=== PATIENT | female | born 1955 | race Caucasian/White ===

== ENCOUNTER → 2017-01-09 | Outpatient (CLI) | payer OTHER ==
--- NOTE | 2017-01-11 10:07 | MM ---
Reason for exam: history of breast cancer, mastectomy. Last mammogram was performed 1 year and 4 months ago. History: Patient is postmenopausal and has history of breast cancer at age 60. Malignant US biopsy breast VAD LT of the left breast, September 01, 2015. Mastectomy of the left breast, 2016. Took hormonal contraceptives for 10 years. Physical Findings: Nurse did not find any significant physical abnormalities on exam. MG Diagnostic Mammo RT w CAD CC and MLO view(s) were taken of the right breast. Prior study comparison: August 18, 2015, bilateral MG 3d diag mammo w/cad AVINASH. There are scattered fibroglandular densities. No significant new findings when compared with previous films. These results were verbally communicated with the patient and result sheet given to the patient on 01/09/17. ASSESSMENT: Benign, BI-RAD 2 RECOMMENDATION: Follow-up diagnostic mammogram of the right breast in 1 year.
== END ==
LOC: RADMAMWWP 08:28
PROVIDERS: ATTEND Family Medicine
DX: R92.8 Other abnormal and inconclusive findings on diagnostic imaging of breast (principal)

== ENCOUNTER → 2018-01-10 | Outpatient (CLI) | payer BC ==
--- NOTE | 2018-01-10 13:52 | MR ---
EXAMINATION TYPE: MR cervical spine wo/w con DATE OF EXAM: 01/10/2018 COMPARISON: NONE HISTORY: Neck pain, DDD TECHNIQUE: Multiplanar, multisequence images of the cervical spine were acquired utilizing 13.5 mL intravenous G adavist gadolinium contrast. Diffusion weighted imaging was performed. FINDINGS: There is straightening of usual cervical lordosis and very slight retrolisthesis of C6 with respect to C7. Multilevel moderate degenerative changes are seen with multilevel disc desiccation, a nterior osteophytes, uncovertebral hypertrophy and facet arthropathy. Posterior disc ossify complexes are seen at C3-C4, C4-C5, C5-C6 and C6-C7. Spinal cord signal is within normal limits as visualized. Posterior fossa is also within normal limits as visualized. Paravertebral musculature is unremarkabl e. C2-C3: There is a central disc herniation creating narrowing of the ventral subarachnoid space withou t impression upon the ventral spinal cord. Uncovertebral hypertrophy and facet arthropathy creates mo derate bilateral neural foraminal narrowing, left slightly greater than right. There is resultant min imal spinal canal stenosis. C3-C4: Small central disc osteophyte complex is identified creating mild spinal canal stenosis and na rrowing the ventral subarachnoid space. Uncovertebral hypertrophy and facet arthropathy creates mild bilateral neural foraminal narrowing. C4-C5: There is a left paracentral disc herniation, facet arthropathy and uncovertebral hypertrophy c reating mild spinal canal stenosis, moderate left neural foraminal narrowing and mild right neural fo raminal narrowing. C5-C6: There is a central disc herniation superimposed upon a bilobed broad-based disc bulge that in combination with facet arthropathy and uncovertebral hypertrophy severely narrow the left neural fora men and moderately narrow the right neural foramen. Mild spinal canal stenosis is also seen at this l evel. C6-C7: There is a right paracentral disc herniation and broad-based disc bulge in combination with un covertebral hypertrophy and facet arthropathy creating mild spinal canal stenosis and mild left neura l foraminal narrowing. Right neuroforamen is patent. C7-T1: No evidence for degenerative disc disease. No disc bulge/herniation or protrusion. No Canal stenosis. Foramina are patent bilaterally. No abnormal postcontrast enhancement. IMPRESSION: 1. Central disc herniation at C2-C3 creating minimal spinal canal stenosis. Bilateral moderate neural foraminal narrowing as result of degenerative change. 2. Small central disc osteophyte complex at C3-C4 creating mild spinal canal stenosis. 3. Left paracentral disc herniation at C4-C5 creating mild spinal canal stenosis, moderate left neura l foraminal narrowing and mild right neural foraminal narrowing in combination with degenerative chau ge. 4. Small central disc herniation at C5-C6 creating mild spinal canal stenosis, severe left neural for aminal narrowing and moderate right neuroforaminal narrowing examination with degenerative change. 5. Right paracentral disc herniation at C6-C7 creating mild spinal canal stenosis and mild left neura l foraminal narrowing. 6. Very mild retrolisthesis of C6 on C7, likely degenerative in nature.
== END ==
LOC: RADMRIMAIN 12:44
PROVIDERS: ATTEND Internal Medicine Rheumatology
DX: M48.02 Spinal stenosis, cervical region (principal); M99.71 Connective tissue and disc stenosis of intervertebral foramina of cervical region; M50.21 Other cervical disc displacement, high cervical region; M43.12 Spondylolisthesis, cervical region; M47.812 Spondylosis without myelopathy or radiculopathy, cervical region
CPT/HCPCS: 72156; A9581

== ENCOUNTER → 2018-01-28 | Outpatient (CLI) | payer BC ==
--- NOTE | 2018-01-28 10:52 | MM ---
Reason for exam: additional evaluation requested from prior study. Last mammogram was performed 1 year and 1 month ago. History: Patient is postmenopausal, has history of other cancer at age 63, and has history of breast cancer at age 60. Implant in the left breast, October 2015. Implant Removal of the left breast, October 2015. Malignant US biopsy breast VAD LT of the left breast, September 01, 2015. Mastectomy of the left breast, 2015. Took hormonal contraceptives for 10 years. Physical Findings: Nurse did not find any significant physical abnormalities on exam. MG 3D Diag Mammo W/Cad RT CC and MLO view(s) were taken of the right breast. Prior study comparison: January 09, 2017, right breast MG diagnostic mammo RT w CAD. September 01, 2015, left breast MG diagnostic mammo LT wo CAD. There are scattered fibroglandular densities. No suspicious abnormality. No significant new findings when compared with previous films. These results were verbally communicated with the patient and result sheet given to the patient on 01/28/18. ASSESSMENT: Negative, BI-RAD 1 RECOMMENDATION: Routine screening mammogram of the right breast in 1 year.
== END | disposition home or self-care (01) ==
LOC: RADMAMWWP 09:08
PROVIDERS: ATTEND Family Medicine
DX: Z08 Encounter for follow-up examination after completed treatment for malignant neoplasm (principal); Z85.3 Personal history of malignant neoplasm of breast
CPT/HCPCS: 77061; 77065

== ENCOUNTER → 2018-02-20 | Outpatient (CLI) | payer BC ==
--- NOTE | 2018-02-20 12:13 | MR ---
[facility] EXAMINATION TYPE: MRI left wrist without contrast DATE OF EXAM: 02/20/2018 COMPARISON: NONE HISTORY: 63-year-old female with left wrist pain TECHNIQUE: Multiplanar, multisequence images of the left wrist were obtained without IV contrast. FINDINGS: There is a moderate wrist joint effusion also extending throughout the mid carpal compartment. There is a ganglion cyst along the inferior aspect of the pisotriquetral joint measuring 1.5 x 1.0 cm. Subhash tional ganglion cyst extends into the subcutaneous adipose tissues ulnar aspect of the carpus measuri ng 7 mm. Scapholunate ligament shows an intact dorsal band but there is heterogeneous signal along the region of the volar band which is suspected to be torn. Mild widening of the scapholunate interval at 2.5 mm . The lunotriquetral ligament is intact. There is degenerative change mild at the first CMC joint with marginal spurring and some chondral cys tic change. More moderate at the triscaphe joint with articular cartilage thinning and marginal spurr ing. Degenerative change is relatively severe at the radiolunate joint with [id number] abutment, subchon dral sclerosis, cystic change, and reactive marrow edema. There also appears to be significant cartil age loss along the radioscaphoid joint with mild reactive marrow edema. In addition, there is mild patchy edema and some cystic change along the ulnar aspect of the proximal lunate which can be seen in the setting of ulnar impaction syndrome. There is extensive soft tissue heterogeneity, capsular thickening, inflammation along the volar aspec t of the wrist joint capsule with dorsal subluxation at the level of the distal radial ulnar joint. T he volar radial ulnar ligament appears torn and there is a large tear of the articular disc of the TF C. Mild effusion extends into the distal radioulnar joint. Scattered mild tenosynovial fluid is present along the dorsal extensor tendons. The flexor tendons ap pear within normal limits. Median nerve is normal caliber. The visualized musculature appears within normal limits. IMPRESSION: 1. Bony changes at the ulnar proximal lunate with a large central tear of the articular disc of the T FC which can be seen in the setting of ulnar impaction syndrome. 2. However, there is also a tear of the volar radioulnar ligament and secondary instability with dors al subluxation at the DRUJ. 3. Extensive swelling and inflammation along the volar aspect of the wrist joint suggests capsular sp rain. 4. The volar band of the scapholunate ligament appears at least partially torn and there is severe de generative change at the radiocarpal joint with [id number] abutment between the distal radius and l unate and significant articular cartilage loss between the distal radius and scaphoid as well. 5. A 1.5 cm ganglion cyst extending inferior to the pisotriquetral joint and the second 7 mm ganglion cyst projecting along the ulnar aspect of the carpus into the subcutaneous adipose tissues.
== END | disposition home or self-care (01) ==
LOC: RADMRIMAIN 11:01
PROVIDERS: ATTEND Internal Medicine Rheumatology
DX: S61.512A Laceration without foreign body of left wrist, initial encounter (principal); S63.592A Other specified sprain of left wrist, initial encounter; M67.432 Ganglion, left wrist

== ENCOUNTER → 2019-02-10 | Outpatient (CLI) | payer OTHER ==
--- NOTE | 2019-02-10 22:46 | MR ---
EXAMINATION TYPE: MR brain wo/w con DATE OF EXAM: 02/10/2019 COMPARISON: NONE HISTORY: Headaches, pressure, focal seizure TECHNIQUE: Multiplanar, multisequence images of the brain and brainstem is performed without and with IV contras t, utilizing 14.5 mL intravenous Gadavist . FINDINGS: Diffusion weighted images demonstrate no evidence of a recent infarct or other diffusion ab normality. There is no worrisome extra-axial fluid collection. Mild ventricular and sulcal prominenc e is present. There is occasional small focus of T2 hyperintensity seen throughout the white matter b ilaterally. Approximately 15 scattered lesions are seen. Lesions are nonspecific in appearance and di stribution. T2 coronal weighted images show hippocampal gyri are symmetric and felt within normal jacob its. Midline structures demonstrate normal morphology. The craniocervical junction appears within normal limits. Post contrast images demonstrate no abnormal enhancement. The dural venous sinuses appear pa tent. The visualized sinuses are clear and the globes are intact. IMPRESSION: Mild diffuse age-related cerebral atrophy and chronic small vessel ischemic change. No fong spicious enhancement noted.
== END | disposition home or self-care (01) ==
LOC: RADMRIMAIN 18:04
PROVIDERS: ATTEND Internal Medicine
DX: G31.1 Senile degeneration of brain, not elsewhere classified (principal); I67.82 Cerebral ischemia
CPT/HCPCS: 70553; A9585

== ENCOUNTER → 2019-02-11 | Outpatient (CLI) | payer OTHER ==
--- NOTE | 2019-02-11 14:35 | NM ---
EXAMINATION TYPE: NM bone scan whole body DATE OF EXAM: 02/11/2019 COMPARISON: NONE HISTORY: Pain Delayed whole-body scanning was performed following the injection of 24.3 mCi Tc 99m MDP. Images acq uired 3 hours post injection. FINDINGS: Abnormal uptake involving the shoulders suggest arthropathy. Abnormal uptake involving the thoracic and lumbar spine likely degenerative. Photopenic defects involving the knees likely postsurgical. There is increased uptake surrounding the prostheses bilaterally which could be postsurgical or loosening not excluded. There is nonvisualizat ion of the distal margin of the tibia fibula bilaterally. Abnormal uptake involving the wrists bilaterally likely post arthritic. IMPRESSION: 1. Nonspecific uptake involving the thoracic and lumbar spine may be degenerative correlate with x-ra y given the patient's history of breast cancer exclude other etiologies. 2. Photopenic defects involving the knees suggestive previous surgery. Increased uptake surrounding b oth knee arthroplasties may be postsurgical recommend x-ray correlation. 3. There is nonvisualization of the distal tibia and fibula bilaterally greater on the left recommend bilateral tibia fibula series.
== END | disposition home or self-care (01) ==
LOC: RADNMMAIN 10:11
PROVIDERS: ATTEND Internal Medicine
DX: M85.80 Other specified disorders of bone density and structure, unspecified site (principal); D05.12 Intraductal carcinoma in situ of left breast; D09.0 Carcinoma in situ of bladder; R93.7 Abnormal findings on diagnostic imaging of other parts of musculoskeletal system; Z85.3 Personal history of malignant neoplasm of breast; Z98.890 Other specified postprocedural states
CPT/HCPCS: 78306; A9503

== ENCOUNTER → 2019-03-05 | Outpatient (CLI) | payer OTHER ==
--- NOTE | 2019-03-07 13:33 | MM ---
Reason for exam: screening (asymptomatic). Last mammogram was performed 1 year and 1 month ago. History: Patient is postmenopausal, has history of other cancer at age 63, and has history of breast cancer at age 60. Implant in the left breast, October 2015. Implant Removal of the left breast, October 2015. Malignant US biopsy breast VAD LT of the left breast, September 01, 2015. Mastectomy of the left breast, 2016. Took hormonal contraceptives for 10 years. Physical Findings: A clinical breast exam by your physician is recommended on an annual basis and results should be correlated with mammographic findings. MG Screen Daljit Unilateral W/Cad CC and MLO view(s) were taken of the right breast. Prior study comparison: January 28, 2018, right breast MG 3d diag mammo w/cad RT. January 09, 2017, right breast MG diagnostic mammo RT w CAD. There are scattered fibroglandular densities. No significant changes when compared with prior studies. ASSESSMENT: Benign, BI-RAD 2 RECOMMENDATION: Routine screening mammogram of the right breast in 1 year.
== END | disposition home or self-care (01) ==
LOC: RADMAMWWP 13:12
PROVIDERS: ATTEND Internal Medicine
DX: Z12.31 Encounter for screening mammogram for malignant neoplasm of breast (principal); Z85.3 Personal history of malignant neoplasm of breast
CPT/HCPCS: 77067

== ENCOUNTER → 2019-04-24 | Outpatient (CLI) | payer OTHER ==
--- NOTE | 2019-04-24 21:05 | CONS ---
CONSULTATION DATE OF SERVICE: 04/24/2019 This patient is a 64-year-old lady who has been evaluated in the sleep center for possible obstructive sleep apnea-hypopnea syndrome. HISTORY OF PRESENT ILLNESS/SLEEP-WAKE EVALUATION: Patient's usual sleep schedule is from 10 or 11 p.m. until 8 or 9 a.m. Usually no problems with falling asleep, although she has a TV set in the bedroom. She sleeps on the back position with loud snoring and awakenings from sleep 2 times with nocturia and dry mouth. In the morning, the patient wakes up tired and sleepy during the day. [place] Sleepiness Scale is significantly increased at 12. Sometimes she takes naps in the afternoon. She has episodes of difficulties concentrating, irritability, anxiety and sexual dysfunction. She has a history of sleepwalking in childhood. PAST MEDICAL HISTORY: Past medical history is positive for: 1. Hypertension. 2. Swelling of the legs. 3. Rheumatoid arthritis. 4. Pain in the back, hands. PAST SURGICAL HISTORY: 1. Tonsillectomy. 2. Cholecystectomy. 3. Bilateral knee replacement. 4. Left mastectomy for carcinoma. 5. Laser treatment for bladder carcinoma. SOCIAL HISTORY: Positive for smoking for about 20 pack/years; quit 12 years ago. Alcohol consumption rarely. FAMILY HISTORY: Hypertension, heart problems, stroke, arthritis, sinus problems, snoring, pneumonia, cancer, bronchitis, diabetes, thyroid problems, during sleep, mental illness. REVIEW OF SYSTEMS: Awakenings from sleep, tiredness and sleepiness during the day, loud snoring, swelling of the legs. PHYSICAL EXAMINATION: GENERAL: A pleasant lady without distress. VITAL SIGNS: BP 132/70, HR 78, RR 16, height 5 feet 6 inches, weight 316, body mass index 50.8, temperature 98.1, oxygen saturation at room air 89%. HEENT: PERRLA, EOMI. Evaluation of oropharynx showed tongue protrudes midline. Extremely low position of soft palate. Mallampati IV. Slight restriction of nasal breathing. NECK: Supple. No JVD. Thyroid is not palpable. Wide neck; 17 inches in circumference. LUNGS: Clear to percussion and to auscultation. Good air exchange. No wheezing or rhonchi. HEART: S1, S2 regular. No murmurs, gallops or rubs. ABDOMEN: Obese. EXTREMITIES: One to two plus bilateral ankle edema. RESEARCH PROGRAMMER: Awake, alert, and oriented X3. Cranial nerves 2 to 7 intact. There is no fasciculation or atrophy. noted. No focal deficits observed. IMPRESSION: 1. Loud snoring, awakenings from sleep with nocturia, extremely low soft palate, Mallampati IV, wide neck at 17 inches in circumference, sleepiness, [place] Sleepiness Scale of 12; obstructive sleep apnea-hypopnea syndrome. 2. Obesity with body mass index 50.8. 3. Hypertension. 4. Rheumatoid arthritis. 5. Back pain. 6. Hand pain. 7. Swelling of legs bilaterally at 2+. Possible CHF. 8. Status post left mastectomy for carcinoma. 9. Status post laser treatment for bladder carcinoma. 10.Status post cholecystectomy. 11.Status post bilateral knee replacement. PLAN: 1. Polysomnography for evaluation of patient's breathing during sleep. 2. CPAP/BiPAP titration if sleep study confirms obstructive sleep apnea-hypopnea syndrome. 3. Preferable position during sleep on the side. 4. No driving if patient feels any sleepiness. 5. I will see patient for follow up visit to explain results of testing and following plan. Thank you very much for referring this patient for consultation. Sincerely, Javid Miguel MD, PhD, FAASM Diplomat of [place] [employer] [place] [employer] Inspector [employer] [facility] [place] MMODL / WHIT: [id number] /
== END | disposition home or self-care (01) ==
LOC: SLEEP 13:18
PROVIDERS: ATTEND Internal Medicine
DX: G47.33 Obstructive sleep apnea (adult) (pediatric) (principal); E66.9 Obesity, unspecified; I10 Essential (primary) hypertension; M06.9 Rheumatoid arthritis, unspecified; M54.9 Dorsalgia, unspecified; M79.643 Pain in unspecified hand; M79.89 Other specified soft tissue disorders; Z68.43 Body mass index [BMI] 50.0-59.9, adult; Z87.891 Personal history of nicotine dependence; Z90.12 Acquired absence of left breast and nipple; Z90.49 Acquired absence of other specified parts of digestive tract; Z96.653 Presence of artificial knee joint, bilateral; Z98.890 Other specified postprocedural states
CPT/HCPCS: 99211

== ENCOUNTER → 2019-08-13 | Outpatient (CLI) | payer OTHER ==
--- NOTE | 2019-08-14 00:59 | MR ---
EXAMINATION TYPE: MR wrist RT wo con DATE OF EXAM: 08/13/2019 COMPARISON: None HISTORY: Rheumatoid arthritis There is decreased signal on the T1 images in the lunate bone. I see no fracture line. There is 4 mm focus of increased signal in the distal scaphoid bone. The distal radius and ulna appear intact. Ther e is narrowing of the radiocarpal joint space which is severely narrowed adjacent to the lunate. Ther e is mild narrowing of the first carpometacarpal joint space. There are small degenerative cysts in t he base of the first metacarpal. There is general increased joint fluid of the carpus. There is fluid around the extensor tendons of the wrist. There is subcutaneous edema on the dorsum of the wrist. Th ere is fluid around the flexor pollicis tendon. IMPRESSION: Significant narrowing of the radiocarpal joint space without significant spurring. This could relate to inflammatory arthritis. There is moderate carpal joint effusion that is consistent with nonspecifi c synovitis. Subcutaneous edema around the wrist. Fluid around the tendons anteriorly and posteriorly also consistent with tenosynovitis. Decreased signal in the lunate consistent with chronic avascular necrosis.
== END | disposition home or self-care (01) ==
LOC: RADMRIMAIN 11:57
PROVIDERS: ATTEND Nurse Practitioner Adult Health
DX: M25.431 Effusion, right wrist (principal); M25.831 Other specified joint disorders, right wrist

== ENCOUNTER → 2020-03-16 | Outpatient (CLI) | payer OTHER ==
--- NOTE | 2020-03-17 10:00 | ECHOF ---
Referral Reason:I50.9 CHF MEASUREMENTS -------- HEIGHT: 170.2 cm WEIGHT: 195.0 kg BP: RVIDd: 3.3 cm (< 3.3) IVSd: 1.4 cm (0.6 - 1.1) LVIDd: 5.4 cm (3.9 - 5.3) LVPWd: 1.3 cm (0.6 - 1.1) IVSs: 1.7 cm LVIDs: 5.2 cm LVPWs: 1.6 cm Ao Diam: 3.0 cm (2.0 - 3.7) MV E Markos: 0.53 m/s MV DecT: 109 ms MV A Markos: 0.53 m/s MV E/A Ratio: 0.99 FINDINGS -------- Sinus rhythm. Morbid Obesity This was a techncally difficult study with suboptimal views, , Lumason utilized for enhancement of im ages. The left ventricular size is normal. There is mild concentric left ventricular hypertrophy. Overa ll left ventricular systolic function is low-normal with, an EF between 50 - 55 %. The right ventricle is normal in size. The left atrial size is normal. The right atrial size is normal. The aortic valve was not well visualized. The mitral valve was not well visualized. The tricuspid valve was not well visualized. Unable to estimate RVSP due to inadequate TR jet spect ral doppler profile. The pulmonic valve was not well visualized. The aortic root size is normal. Echo free space represents a pericardial fat pad. There is a trivial pericardial effusion present. CONCLUSIONS -------- 1. Sinus rhythm. 2. Morbid Obesity 3. This was a techncally difficult study with suboptimal views, , Lumason utilized for enhancement of images. 4. The left ventricular size is normal. 5. There is mild concentric left ventricular hypertrophy. 6. Overall left ventricular systolic function is low-normal with, an EF between 50 - 55 %. 7. The right ventricle is normal in size. 8. The left atrial size is normal. 9. The right atrial size is normal. 10. The aortic valve was not well visualized. 11. The mitral valve was not well visualized. 12. The tricuspid valve was not well visualized. 13. Unable to estimate RVSP due to inadequate TR jet spectral doppler profile. 14. The pulmonic valve was not well visualized. 15. Echo free space represents a pericardial fat pad. 16. There is a trivial pericardial effusion present. PROGRAM DIRECTOR CABLE TELEVISION: Rahel Sorensen RDCS
== END | disposition home or self-care (01) ==
LOC: RADECHMAIN 12:10
PROVIDERS: ATTEND Internal Medicine
DX: I31.3 Pericardial effusion (noninflammatory) (principal); E66.01 Morbid (severe) obesity due to excess calories; Z88.1 Allergy status to other antibiotic agents; Z88.6 Allergy status to analgesic agent
CPT/HCPCS: C8929; Q9950; 93306

== ENCOUNTER → 2020-08-25 | Outpatient (CLI) | payer OTHER ==
--- NOTE | 2020-08-26 01:05 | SFUN ---
SLEEP CENTER FOLLOW UP NOTE DATE OF SERVICE: 08/25/2020 65-year-old lady who has been followed in Sleep Center for treatment of obstructive sleep apnea hypopnea syndrome. About one year ago, patient had a polysomnogram and CPAP titration. After that, she was started on treatment with CPAP and continued to use CPAP equipment until present time. The patient was not able to come for follow-up visit because of the situation because sleep center was closed for some period of time. The patient is using equipment every night, sleeps better with the machine. She feels better during the day. Today [place] sleepiness Scale is 11. I discussed with the patient in detail, results of her diagnostic sleep study and titration study. She has severe sleep apnea with this apnea-hypopnea index 51.8 and in REM sleep 66.7. With CPAP, respiration was fully normalized. I checked her CPAP machine today. Pressure is 10 cm of water. Usage is 30/30 nights for more than 4 hours with average usage of 8.4 hours at night. Leak is 17 L/minute which is acceptable. Apnea-hypopnea index only 0.5, which is perfect. Sometimes patient opens her mouth during the sleep. MEDICATIONS: Losartan, meloxicam, Methotrexate, propranolol, furosemide, hydrocodone, Mobic, folic acid. PHYSICAL EXAM: Patient in no distress, BP 181/67, HR 68/16, weight 343 pounds, temperature 98.2, oxygen saturation at room air 96%. HEENT: PERRLA, EOMI, evaluation of oropharynx showed tongue protrudes midline. Low position of soft palate and then for my template. NECK: Supple, no JVD. Thyroid is not palpable. LUNGS: Clear to percussion and to auscultation. Good air exchange. No wheezing or rhonchi. HEART: S1, S2 regular. No murmurs, gallops, or rubs. ABDOMEN: Obese. Soft and nontender. Bowel sounds are present. No organomegaly appreciated. EXTREMITIES: No clubbing or cyanosis. INTEGRATION SOLUTION ARCHITECT: Awake, alert, and oriented X3. Cranial nerves 2 to 7 intact. There is no fasciculation or atrophy. noted. No focal deficits observed. IMPRESSION: 1. Severe obstructive sleep apnea-hypopnea syndrome. Patient demonstrated 100% compliance with treatment benefitting from treatment. 2. Obesity. 3. Hypertension. 4. Rheumatoid arthritis. 5. Back problems. 6. pain. 7. Status post bilateral mastectomy for CA. 8. Status post laser treatment for bladder CA. 9. Status post cholecystectomy. 10.Status post bilateral knee replacement. PLAN: 1. I increased CPAP pressure to 11 cm of water. The patient indicated that her leased equipment showed episodes of dropping oxygen during sleep. 1. Patient will continue to use PAP equipment every night for the whole night. 2. Sleep hygiene with regular time in bed for at least 7-1/2 to 8 hours. 3. Precautions related to driving. No driving if feeling sleepiness. 4. I will maintain all necessary prescription for PAP supplies including mask, tube, filters. 5. Watching weight. 6. No driving if feeling sleepiness. 7. Follow-up visit in 6 months or earlier if patient has any problems. 8. Prescription for chin strap. Thank you very much for allowing me to participate in management of your patient. Sincerely, Javid Miguel MD, PhD, FAASM Diplomat of [place] [employer] [place] [employer] Business Relationship Manager of [facility] [place] MMODL / IJN: [id number] /
== END | disposition home or self-care (01) ==
LOC: SLEEP 15:03
PROVIDERS: ATTEND Internal Medicine
DX: G47.33 Obstructive sleep apnea (adult) (pediatric) (principal); E66.9 Obesity, unspecified; I10 Essential (primary) hypertension; M06.9 Rheumatoid arthritis, unspecified; R93.89 Abnormal findings on diagnostic imaging of other specified body structures; Z90.13 Acquired absence of bilateral breasts and nipples; Z98.890 Other specified postprocedural states; Z90.49 Acquired absence of other specified parts of digestive tract; Z96.653 Presence of artificial knee joint, bilateral; Z99.89 Dependence on other enabling machines and devices; Z79.1 Long term (current) use of non-steroidal anti-inflammatories (NSAID); Z79.891 Long term (current) use of opiate analgesic; Z79.899 Other long term (current) drug therapy

== ENCOUNTER 2021-02-16 16:27 | Observation (INO) | payer OTHER ==
[2021-02-16] MEDS ORDERED: IBUPROFEN 600 MG TAB PO STA (18:19)
[2021-02-16] MEDS ORDERED: ACETAMINOPHEN TAB 500 MG TAB PO STA (18:19)
--- NOTE | 2021-02-16 18:23 | ED ---
General Adult HPI - General Chief complaint: Fever Stated complaint: fever Time Seen by Provider: 02/16/21 18:00 Source: patient, RN notes reviewed, old records reviewed Mode of arrival: wheelchair Limitations: no limitations - History of Present Illness Initial comments: This is a 66-year-old female with a past medical history significant for hypertension. Patient comes in today stating she started feeling terrible yesterday she has body aches particularly neck region. Patient has a mild headache. Patient states last night she had 102 fever. Patient denies any cough patient denies shortness of breath or difficulty breathing. Patient states she has some dysuria. Patient denies lower abdominal discomfort. Patient denies any back pain. Patient denies any nausea vomiting or diarrhea. Patient states the right lower leg is erythematous and warm and it is started over the last couple of days. Patient states she's had her COVID vaccine 2 and the last dose was in November. Patient states she did have some chest pressure earlier today. - Related Data Home Medications Medication Instructions Recorded Confirmed Hydrocodone/Acetaminophen [[place] 1 tab PO Q8H PRN 06/23/14 02/16/21 5-325] ALPRAZolam [Xanax] 0.25 mg PO Q8H PRN 02/16/21 02/16/21 Ascorbic Acid [Vitamin C] 250 mg PO DAILY 02/16/21 02/16/21 Aspirin EC [Ecotrin Low Dose] 81 mg PO DAILY 02/16/21 02/16/21 Baricitinib [Olumiant] 2 mg PO HS 02/16/21 02/16/21 Biotin 2,500 mcg PO DAILY 02/16/21 02/16/21 Calcium Citrate 630mg 630 mg PO DAILY 02/16/21 02/16/21 Ergocalciferol [Vitamin D2 (1250 1,250 mcg PO JOHANSEN 02/16/21 02/16/21 Mcg = 72309 Iu)] Folic Acid 1 mg PO DAILY 02/16/21 02/16/21 Furosemide [Lasix] 40 mg PO DAILY 02/16/21 02/16/21 Latanoprost/Pf [Latanoprost 0.005% 1 drop BOTH EYES HS 02/16/21 02/16/21 Eye Drop] Loratadine [Claritin] 10 mg PO DAILY 02/16/21 02/16/21 Losartan Potassium 100 mg PO DAILY 02/16/21 02/16/21 Magnesium 143mg 143 mg PO DAILY 02/16/21 02/16/21 Meloxicam [Mobic] 15 mg PO DAILY PRN 02/16/21 02/16/21 Multivit-Min/Iron/Folic/Lutein 1 tab PO DAILY 02/16/21 02/16/21 [Centrum Silver Women Tablet] Pantoprazole Sodium [Protonix] 20 mg PO HS 02/16/21 02/16/21 Propranolol HCl [Propranolol HCl 120 mg PO HS 02/16/21 02/16/21 ER] Vitamin A 2400mg 2,400 mg PO DAILY 02/16/21 02/16/21 Vitamin B Complex 1 cap PO DAILY 02/16/21 02/16/21 hydroCHLOROthiazide [Hydrodiuril] 25 mg PO DAILY 02/16/21 02/16/21 predniSONE 2.5 mg PO DAILY 02/16/21 02/16/21 Allergies Allergy/AdvReac Type Severity Reaction Status Date / Time morphine Allergy Itching/Ezequiel Verified 02/16/21 18:56 lucinations venom-honey bee Allergy Swelling Verified 02/16/21 18:56 [bee venom (honey bee)] Review of Systems ROS Statement: Those systems with pertinent positive or pertinent negative responses have been documented in the HPI. ROS Other: All systems not noted in ROS Statement are negative. Past Medical History Past Medical History: Cancer, Hypertension, Neurologic Disorder, Seizure Disorder Additional Past Medical History / Comment(s): cellulitis, back pain, partial on set seizures. breast cancer History of Any Multi-Drug Resistant Organisms: None Reported Past Surgical History: Cholecystectomy, Orthopedic Surgery, Tonsillectomy Additional Past Surgical History / Comment(s): Herbal tunnel release and cyst removal on the right wrist, open surgery on the left knee many years ago followed by open reconstructive surgery. Patient denies prosthetics. Right knee arthroscopically for medial meniscus tear, epidural steroid injections 2. Past Anesthesia/Blood Transfusion Reactions: Previous Problems w/ Anesthesia Additional Past Anesthesia/Blood Transfusion Reaction / Comment(s): patient states when she had her wrist surgery done she felt beginning of surgery. dur ing dental work the anesthetics given make her "heart go stupid" Past Psychological History: No Psychological Hx Reported Smoking Status: Never smoker Past Alcohol Use History: None Reported Past Drug Use History: None Reported - Past Family History Father Additional Family Medical History / Comment(s): father had heart disease/valves r/t having rheumatic fever as a child. Mother Additional Family Medical History / Comment(s): multiple sclerosis General Exam - General Exam Comments Initial Comments: GENERAL: Patient is well-developed and well-nourished. Patient is nontoxic and well- hydrated and is in mild distress. ENT: Neck is soft and supple. No significant lymphadenopathy is noted. Oropharynx is clear. Moist mucous membranes. Neck has full range of motion without eliciting any pain. EYES: The sclera were anicteric and conjunctiva were pink and moist. Extraocular movements were intact and pupils were equal round and reactive to light. Eyelids were unremarkable. PULMONARY: Unlabored respirations. Good breath sounds bilaterally. No audible rales rhonchi or wheezing was noted. CARDIOVASCULAR: There is a regular rate and rhythm without any murmurs gallops or rubs. ABDOMEN: She has mild left lower quadrant SKIN: Skin is clear with no lesions or rashes and otherwise unremarkable. NEUROLOGIC: Patient is alert and oriented x3. Cranial nerves II through XII are grossly intact. Motor and sensory are also intact. Normal speech, volume and content. Symmetrical smile. MUSCULOSKELETAL: Normal extremities with adequate strength and full range of motion. LYMPHATICS: No significant lymphadenopathy is noted PSYCHIATRIC: Normal psychiatric evaluation. Limitations: no limitations Course Vital Signs 02/16/21 02/16/21 02/16/21 17:58 18:22 19:02 Temperature 100.2 F H 103.1 F H Pulse Rate 86 Respiratory 22 18 Rate Blood Pressure 172/78 O2 Sat by Pulse 93 L Oximetry 02/16/21 19:03 Temperature Pulse Rate Respiratory 18 Rate Blood Pressure O2 Sat by Pulse Oximetry Medical Decision Making - Medical Decision Making EKG shows normal sinus rhythm at 77 bpm GA interval 146 QRS is 100 QT interval 350 QTC is 396. Patient's EKG shows no ST segment elevation or depression however she has T-wave inversions in all precordial leads. Patient was diagnosed with right leg cellulitis at 8:10 PM I spoke with Dr. Morris he agreed to admit the patient admitted the patient wrote admitting orders. Started the patient on Unasyn. - Lab Data Result diagrams: 02/16/21 18:48 02/16/21 19:24 Lab Results 02/16/21 02/16/21 02/16/21 Range/Units 18:48 18:48 18:48 WBC 12.6 H (3.8-10.6) k/uL RBC 4.48 (3.80-5.40) m/uL Hgb 14.6 (11.4-16.0) gm/dL Hct 44.3 (34.0-46.0) % MCV 98.9 (80.0-100.0) fL MCH 32.6 (25.0-35.0) pg MCHC 33.0 (31.0-37.0) g/dL RDW 14.4 (11.5-15.5) % Plt Count 328 (150-450) k/uL MPV 7.6 Neutrophils % 93 % Lymphocytes % 3 % Monocytes % 3 % Eosinophils % 1 % Basophils % 0 % Neutrophils # 11.7 H (1.3-7.7) k/uL Lymphocytes # 0.4 L (1.0-4.8) k/uL Monocytes # 0.3 (0-1.0) k/uL Eosinophils # 0.1 (0-0.7) k/uL Basophils # 0.0 (0-0.2) k/uL PT 13.8 H (9.0-12.0) sec INR 1.4 H (<1.2) APTT 26.0 (22.0-30.0) sec Sodium (137-145) mmol/L Potassium (3.5-5.1) mmol/L Chloride (98-107) mmol/L Carbon Dioxide (22-30) mmol/L Anion Gap mmol/L BUN (7-17) mg/dL Creatinine (0.52-1.04) mg/dL Est GFR (CKD-EPI)AfAm (>60 ml/min/1.73 sqM) Est GFR (CKD-EPI)NonAf (>60 ml/min/1.73 sqM) Glucose (74-99) mg/dL Calcium (8.4-10.2) mg/dL Total Bilirubin (0.2-1.3) mg/dL AST (14-36) U/L ALT (4-34) U/L Alkaline Phosphatase (38-126) U/L Troponin I <0.012 (0.000-0.034) ng/mL Total Protein (6.3-8.2) g/dL Albumin (3.5-5.0) g/dL Urine Color Urine Appearance (Clear) Urine pH (5.0-8.0) Ur Specific [place] (1.001-1.035) Urine Protein (Negative) Urine Glucose (UA) (Negative) Urine Ketones (Negative) Urine Blood (Negative) Urine Nitrite (Negative) Urine Bilirubin (Negative) Urine Urobilinogen (<2.0) mg/dL Ur Leukocyte Esterase (Negative) Urine RBC (0-5) /hpf Urine WBC (0-5) /hpf Ur Squamous Epith Cells (0-4) /hpf Urine Mucus (None) /hpf Coronavirus (PCR) (Not Detectd) 02/16/21 02/16/21 02/16/21 Range/Units 18:56 19:24 20:00 WBC (3.8-10.6) k/uL RBC (3.80-5.40) m/uL Hgb (11.4-16.0) gm/dL Hct (34.0-46.0) % MCV (80.0-100.0) fL MCH (25.0-35.0) pg MCHC (31.0-37.0) g/dL RDW (11.5-15.5) % Plt Count (150-450) k/uL MPV Neutrophils % % Lymphocytes % % Monocytes % % Eosinophils % % Basophils % % Neutrophils # (1.3-7.7) k/uL Lymphocytes # (1.0-4.8) k/uL Monocytes # (0-1.0) k/uL Eosinophils # (0-0.7) k/uL Basophils # (0-0.2) k/uL PT (9.0-12.0) sec INR (<1.2) APTT (22.0-30.0) sec Sodium 134 L (137-145) mmol/L Potassium 3.7 (3.5-5.1) mmol/L Chloride 93 L (98-107) mmol/L Carbon Dioxide 32 H (22-30) mmol/L Anion Gap 9 mmol/L BUN 21 H (7-17) mg/dL Creatinine 0.76 (0.52-1.04) mg/dL Est GFR (CKD-EPI)AfAm >90 (>60 ml/min/1.73 sqM) Est GFR (CKD-EPI)NonAf 83 (>60 ml/min/1.73 sqM) Glucose 145 H (74-99) mg/dL Calcium 9.0 (8.4-10.2) mg/dL Total Bilirubin 0.9 (0.2-1.3) mg/dL AST 31 (14-36) U/L ALT 29 (4-34) U/L Alkaline Phosphatase 85 (38-126) U/L Troponin I (0.000-0.034) ng/mL Total Protein 6.7 (6.3-8.2) g/dL Albumin 4.1 (3.5-5.0) g/dL Urine Color Yellow Urine Appearance Clear (Clear) Urine pH 6.5 (5.0-8.0) Ur Specific [place] 1.025 (1.001-1.035) Urine Protein 2+ H (Negative) Urine Glucose (UA) Negative (Negative) Urine Ketones Trace H (Negative) Urine Blood Small H (Negative) Urine Nitrite Negative (Negative) Urine Bilirubin Negative (Negative) Urine Urobilinogen 2.0 (<2.0) mg/dL Ur Leukocyte Esterase Negative (Negative) Urine RBC 10 H (0-5) /hpf Urine WBC 4 (0-5) /hpf Ur Squamous Epith Cells 3 (0-4) /hpf Urine Mucus Rare H (None) /hpf Coronavirus (PCR) Not Detected (Not Detectd) Disposition Clinical Impression: Cellulitis of right leg, Chest pain Disposition: ADMITTED IP TO THIS [facility] Referrals: Bry Silverio MD [Primary Care Provider] - 1-2 days Time of Disposition: 20:49
[2021-02-16] MEDS: SODIUM CHLORIDE 0.9% 500 ML 500 ML IV SCH ×2 (18:50→19:34)
[2021-02-16 19:09] LABS: Basophils % (A) 0 %; Eosinophils # (A) 0.1 k/uL (0-0.7); Eosinophils % (A) 1 %; HCT 44.3 % (34.0-46.0); HGB 14.6 gm/dL (11.4-16.0); Lymphocytes # (A) 0.4 k/uL (1.0-4.8); Lymphocytes % (A) 3 %; MCH 32.6 pg (25.0-35.0); MCV 98.9 fL (80.0-100.0); Mean Platelet Volume 7.6; Monocytes # (A) 0.3 k/uL (0-1.0); Monocytes % (A) 3 %; Neutrophils # (A) 11.7 k/uL (1.3-7.7); Neutrophils % (A) 93 %; Platelet Count 328 k/uL (150-450); RBC 4.48 m/uL (3.80-5.40); RDW 14.4 % (11.5-15.5); WBC 12.6 k/uL (3.8-10.6)
[2021-02-16 19:24] LABS: INR 1.4 (<1.2); Prothrombin Time 13.8 sec (9.0-12.0)
--- NOTE | 2021-02-16 19:25 | XR ---
EXAMINATION TYPE: XR chest 2V DATE OF EXAM: 02/16/2021 COMPARISON: NONE HISTORY: Fever TECHNIQUE: 2 views FINDINGS: There is no heart failure nor confluent pneumonic infiltrate. Costophrenic angles are clear . There are no hilar masses. There are chest leads. Bony thorax is intact. IMPRESSION: No active cardiopulmonary disease.
[2021-02-16 19:57] LABS: ALT 29 U/L (4-34); AST 31 U/L (14-36); African American GFR (CKD) >90 (>60 ml/min/1.73 sqM); Albumin 4.1 g/dL (3.5-5.0); Alkaline Phosphatase 85 U/L (38-126); Anion Gap 9 mmol/L; Blood Urea Nitrogen 21 mg/dL (7-17); Carbon Dioxide 32 mmol/L (22-30); Chloride 93 mmol/L (98-107); Glucose 145 mg/dL (74-99); Non-African American GFR(CKD) 83 (>60 ml/min/1.73 sqM); Potassium 3.7 mmol/L (3.5-5.1); Sodium 134 mmol/L (137-145); Total Bilirubin 0.9 mg/dL (0.2-1.3); Total Protein 6.7 g/dL (6.3-8.2)
[2021-02-16 20:42] LABS: Appearance,Urine Clear (Clear); Bilirubin,Urine Negative (Negative); Blood,Urine Small (Negative); Color,Urine Yellow; Glucose,Urine (UA) Negative (Negative); Ketones,Urine Trace (Negative); Leukocyte Esterase,Urine Negative (Negative); Mucus,Urine Rare /hpf; Nitrite,Urine Negative (Negative); PH, Urine 6.5 (5.0-8.0); Protein,Urine 2+ (Negative); RBC,Urine 10 /hpf (0-5); Specific Gravity,Urine 1.025 (1.001-1.035); Squamous Epithelial Cell,Urine 3 /hpf (0-4); WBC,Urine 4 /hpf (0-5)
[2021-02-16] MEDS ORDERED: AMPICILLIN-SULBACTAM 3 GM in SODIUM CHLORIDE 0.9% 100 ML IVPB STA (20:50)
[2021-02-16 22:44] VITALS: RESP 16
[2021-02-16] MEDS ORDERED: HYDROcodone/APAP 5-325MG 1 EACH TAB PO PRN (23:16)
[2021-02-16] MEDS ORDERED: ALPRAZolam 0.25 MG TAB PO PRN (23:16)
--- NOTE | 2021-02-17 02:12 | P.HPIM ---
History of Present Illness H&P Date: 02/17/21 The patient is 66-year-old female with a PMH of hypertension and chronic lower extremity edema who presented to the emergency room with multiple complaints. The patient reports that yesterday at around 3 PM, she began feeling ill, subsequently developed a fever and body aches. She reports that she also experienced some substernal chest discomfort with associated shortness of breath, lasting for a few minutes at a time, and then resolving spontaneously. She also reported dysuria along with pain in her right leg. At time of interview, she reports no chest discomfort throughout the day today, though continues to have dysuria and increased urinary frequency. Denied headaches, visual disturbances or nausea, vomiting, diarrhea. Denied weakness, numbness, tingling. In the emergency room, EKG revealed normal sinus rhythm at 77 bpm along with T-wave inversions in precordial leads diffusely along with II and III. Chest x-ray was unremarkable. Laboratory evaluation was remarkable for WBC count 12.6, INR 1.4, sodium 134, CO2 32, BUN 21, glucose 145, and troponin less than 0.012. Review of systems: Pertinent positives and negatives as discussed in HPI, a complete review of systems was performed and all other systems are negative. Physical examination: General: non toxic, no distress, appears at stated age, morbidly obese Derm: Bilateral lower extremity chronic venous stasis changes along with erythema and warmth right greater than left warm, dry Head: atraumatic, normocephalic, symmetric Eyes: EOMI, no lid lag, anicteric sclera, pupils equal round reactive to light ENT: Nose and ears atraumatic, no thrush, no pharyngeal erythema Neck: No thyromegaly, no cervical lymphadenopathy, trachea midline, supple Mouth: no lip lesion, mucus membranes moist Cardiovascular: S1S2 reg, no murmur, positive posterior tibial pulse bilateral, no edema, capillary refill less than 2 seconds Lungs: CTA bilateral, no rhonchi, no rales , no accessory muscle use Abdominal: soft, nontender to palpation, no guarding, no appreciable organomegaly, normal bowel sounds Ext: no gross muscle atrophy, muscle strength 5 out of 5 in all 4 extremities grossly, no contractures, Neuro: CN II-XI grossly intact, light touch intact all 4 extremities, finger to nose within normal limits, Psych: Alert, oriented, appropriate affect Assessment/plan Right lower extremity cellulitis -Continue with Unasyn -Follow up blood cultures Chest pain, rule out ACS -Cardiology consult Hypertension -Continue with home meds DVT prophylaxis -Heparin subq The patient is admitted with an anticipated less than 2 midnight stay for evaluation of cellulitis CODE STATUS: Full Code Discussed with: Patient Anticipated discharge date: in am Anticipated discharge place: Home A total of 35 minutes was spent on the care of this complex patient more than 50% of the time was spent in counseling and care coordination. Past Medical History Past Medical History: Cancer, Hypertension, Neurologic Disorder, Seizure Disorder Additional Past Medical History / Comment(s): cellulitis, back pain, partial on set seizures. breast cancer History of Any Multi-Drug Resistant Organisms: None Reported Past Surgical History: Cholecystectomy, Orthopedic Surgery, Tonsillectomy Additional Past Surgical History / Comment(s): Herbal tunnel release and cyst removal on the right wrist, open surgery on the left knee many years ago followed by open reconstructive surgery. Patient denies prosthetics. Right knee arthroscopically for medial meniscus tear, epidural steroid injections 2. Past Anesthesia/Blood Transfusion Reactions: Previous Problems w/ Anesthesia Additional Past Anesthesia/Blood Transfusion Reaction / Comment(s): patient states when she had her wrist surgery done she felt beginning of surgery. during dental work the anesthetics given make her "heart go stupid" Past Psychological History: No Psychological Hx Reported Smoking Status: Never smoker Past Alcohol Use History: None Reported Past Drug Use History: None Reported - Past Family History Father Additional Family Medical History / Comment(s): father had heart disease/valves r/t having rheumatic fever as a child. Mother Additional Family Medical History / Comment(s): multiple sclerosis Medications and Allergies Home Medications Medication Instructions Recorded Confirmed Type Hydrocodone/Acetaminophen [[place] 1 tab PO Q8H PRN 06/23/14 02/16/21 History 5-325] ALPRAZolam [Xanax] 0.25 mg PO Q8H PRN 02/16/21 02/16/21 History Ascorbic Acid [Vitamin C] 250 mg PO DAILY 02/16/21 02/16/21 History Aspirin EC [Ecotrin Low Dose] 81 mg PO DAILY 02/16/21 02/16/21 History Baricitinib [Olumiant] 2 mg PO HS 02/16/21 02/16/21 History Biotin 2,500 mcg PO DAILY 02/16/21 02/16/21 History Calcium Citrate 630mg 630 mg PO DAILY 02/16/21 02/16/21 History Ergocalciferol [Vitamin D2 (1250 1,250 mcg PO JOHANSEN 02/16/21 02/16/21 History Mcg = 45869 Iu)] Folic Acid 1 mg PO DAILY 02/16/21 02/16/21 History Furosemide [Lasix] 40 mg PO DAILY 02/16/21 02/16/21 History Latanoprost/Pf [Latanoprost 0.005% 1 drop BOTH EYES HS 02/16/21 02/16/21 History Eye Drop] Loratadine [Claritin] 10 mg PO DAILY 02/16/21 02/16/21 History Losartan Potassium 100 mg PO DAILY 02/16/21 02/16/21 History Magnesium 143mg 143 mg PO DAILY 02/16/21 02/16/21 History Meloxicam [Mobic] 15 mg PO DAILY PRN 02/16/21 02/16/21 History Multivit-Min/Iron/Folic/Lutein 1 tab PO DAILY 02/16/21 02/16/21 History [Centrum Silver Women Tablet] Pantoprazole Sodium [Protonix] 20 mg PO HS 02/16/21 02/16/21 History Propranolol HCl [Propranolol HCl 120 mg PO HS 02/16/21 02/16/21 History ER] Vitamin A 2400mg 2,400 mg PO DAILY 02/16/21 02/16/21 History Vitamin B Complex 1 cap PO DAILY 02/16/21 02/16/21 History hydroCHLOROthiazide [Hydrodiuril] 25 mg PO DAILY 02/16/21 02/16/21 History predniSONE 2.5 mg PO DAILY 02/16/21 02/16/21 History Allergies Allergy/AdvReac Type Severity Reaction Status Date / Time morphine Allergy Itching/Ezequiel Verified 02/16/21 18:56 lucinations venom-honey bee Allergy Swelling Verified 02/16/21 18:56 [bee venom (honey bee)] Physical Exam Vitals: Vital Signs Temp Pulse Resp BP Pulse Ox 02/16/21 22:44 99.4 F 97 16 138/62 98 02/16/21 21:00 99.5 F 78 18 148/60 99 02/16/21 19:03 18 02/16/21 19:02 18 02/16/21 18:22 103.1 F H 02/16/21 17:58 100.2 F H 86 22 172/78 93 L Intake and Output 02/16/21 02/16/21 02/17/21 14:59 22:59 06:59 Other: Weight 154.221 kg Results CBC & Chem 7: 02/16/21 18:48 02/16/21 19:24 Labs: Abnormal Lab Results - Last 24 Hours (Table) 02/16/21 02/16/21 02/16/21 Range/Units 18:48 18:48 19:24 WBC 12.6 H (3.8-10.6) k/uL Neutrophils # 11.7 H (1.3-7.7) k/uL Lymphocytes # 0.4 L (1.0-4.8) k/uL PT 13.8 H (9.0-12.0) sec INR 1.4 H (<1.2) Sodium 134 L (137-145) mmol/L Chloride 93 L (98-107) mmol/L Carbon Dioxide 32 H (22-30) mmol/L BUN 21 H (7-17) mg/dL Glucose 145 H (74-99) mg/dL Urine Protein (Negative) Urine Ketones (Negative) Urine Blood (Negative) Urine RBC (0-5) /hpf Urine Mucus (None) /hpf 02/16/21 Range/Units 20:00 WBC (3.8-10.6) k/uL Neutrophils # (1.3-7.7) k/uL Lymphocytes # (1.0-4.8) k/uL PT (9.0-12.0) sec INR (<1.2) Sodium (137-145) mmol/L Chloride (98-107) mmol/L Carbon Dioxide (22-30) mmol/L BUN (7-17) mg/dL Glucose (74-99) mg/dL Urine Protein 2+ H (Negative) Urine Ketones Trace H (Negative) Urine Blood Small H (Negative) Urine RBC 10 H (0-5) /hpf Urine Mucus Rare H (None) /hpf
[2021-02-17] MEDS: AMPICILLIN-SULBACTAM 3 GM in SODIUM CHLORIDE 0.9% 100 ML IVPB SCH ×2 (04:05→09:39)
[2021-02-17 07:12] LABS: Glucose,Whole Blood 179 mg/dL (75-99)
[2021-02-17] MEDS ORDERED: HEPARIN SODIUM,PORCINE/PF 5,000 UNIT/0.5 ML SYRINGE SQ SCH (08:00)
[2021-02-17 08:28] VITALS: BP 156/88; PULSE 62; TEMP 98
[2021-02-17] MEDS ORDERED: hydroCHLOROthiazide 25 MG TAB PO SCH (09:00)
[2021-02-17] MEDS ORDERED: FUROSEMIDE 40 MG TAB PO SCH (09:00)
[2021-02-17] MEDS ORDERED: ASPIRIN 81 MG PO SCH (09:00)
[2021-02-17] MEDS ORDERED: VIT A,C & E-LUTEIN-MINERALS 1 EACH TAB PO SCH (09:00)
[2021-02-17] MEDS ORDERED: LOSARTAN 50 MG TAB PO SCH (09:00)
[2021-02-17] MEDS ORDERED: predniSONE 2.5 MG TAB PO SCH (09:00)
[2021-02-17 09:08] LABS: HCT 36.6 % (37.2-46.3); HGB 11.9 g/dL (12.0-15.0); MCH 33.1 pg (27.0-32.0); MCHC 32.5 g/dL (32.0-37.0); MCV 101.9 fL (80.0-97.0); Mean Platelet Volume 10.2 fL (9.5-12.2); Platelet Count 235 X 10*3/uL (140-440); RBC 3.59 X 10*6/uL (4.10-5.20); RDW 14.2 % (11.5-14.5); WBC 8.82 X 10*3/uL (4.50-10.00)
[2021-02-17 09:13] LABS: INR 1.3 (0.90-1.11); Prothrombin Time 13.9 sec (9.9-11.9)
[2021-02-17 09:36] LABS: African American GFR (CKD) 77.8 (60.0-200.0); Anion Gap 8.5 mmol/L (4.00-12.00); BUN/Creat Ratio 23.33 Ratio (12.00-20.00); Calcium 8.5 mg/dL (8.7-10.3); Carbon Dioxide 33.5 mmol/L (21.6-31.8); Non-African American GFR(CKD) 67.1 (60.0-200.0); Potassium 3.7 mmol/L (3.5-5.5)
--- NOTE | 2021-02-17 10:00 | P.CRDCN ---
History of Present Illness History of present illness: HISTORY OF PRESENTING ILLNESS This is a pleasant 66-year-old female past medical history significant for hypertension, former nicotine dependence, breast cancer, recurrent cellulit is and morbid obesity. She denies prior history of coronary artery disease and does not follow in the office with a bookkeeping assistant. We have been asked to see in consultation for chest pain. She states for the previous 1-2 months she has been having intermittent episodes of chest pain in the mid-sternal region. The pain feels like someone is taking their fist and pushing into her. There is no radiat ion through to the back, down the arms or into the neck. The pain is not related to breathing or exertion. Up until a couple days ago she had no shortness of breath associated with the pain. On Sunday of this week she started feeling weak, cold with chills and having rigors. Her temperature was 103F. She had ongoing chest pains and this time also felt short of breath prompting her to come in for evaluation. Her right leg was noted to be warm and red, worse than normal. She has been started on IV antibiotics for suspected cellulitus. EKG obtained reveals sinus mechanism heart rate 77 with non-specific T-wave abnormalities inferiorly, T-wave inversion in the precordial leads and mild ST depression inferiorly. There is no old EKG for comparison. Telemetry tracings reveals sinus mechanism with no significant arrhythmia or pauses. Chest x-ray is negative for an acute cardiopulmonary process. Laboratory data reviewed, WBC on admission 12.6 repeat today 8.8, hemoglobin 11.9, platelets 235, INR 1.3, sodium 140, potassium 3.7, creatinine 0.9, cardiac enzymes negative 3. Current daily cardiac medications include hydrochlorothiazide 25 mg daily, propanolol 120 mg daily, losartan 100 mg daily, Lasix 40 mg daily and aspirin 81 mg daily. Most recent echocardiogram obtained in 2020 revealed preserved LV systolic function with ejection fraction 50-55%. REVIEW OF SYSTEMS At the time of my exam: CONSTITUTIONAL: Denies fever or chills. CARDIOVASCULAR: Denies chest pain, shortness of breath, orthopnea, PND or palpitations. RESPIRATORY: Denies cough. GASTROINTESTINAL: Denies abdominal pain, diarrhea, constipation, nausea or vomiting. MUSCULOSKELETAL: Denies myalgias. NEUROLOGIC: Denies numbness, tingling, headacbe or weakness. ENDOCRINE: Denies fatigue, weight change, polydipsia or polyurina. GENITOURINARY: Denies burning, hematuria or urgency with micturation. HEMATOLOGIC: Denies history of anemia or bleeding. PHYSICAL EXAMINATION Blood pressure 156/88 heart rate 62 afebrile and maintaining oxygen saturation on room air. CONSTITUTIONAL: No apparent distress. Morbidly obese. HEENT: Head is normocephalic. Pupils are equal, round. Sclerae anicteric. Mucous membranes of the mouth are moist. No JVD. No carotid bruit. CHEST EXAMINATION: Lungs are clear to auscultation. No chest wall tenderness is noted on palpation or with deep breathing. HEART EXAMINATION: Regular rate and rhythm. S1, S2 heard. Soft systolic ejection murmur at the left sternal border, no gallops or rub. Distant heart sounds. ABDOMEN: Soft, nontender. Positive bowel sounds. EXTREMITIES: 2+ peripheral pulses, bilateral lower extremity edema, bilateral erythema right greater than left, right lower extremity warmth on palpation and no calf tenderness. NEUROLOGIC EXAMINATION: Patient is awake, alert and oriented x3. ASSESSMENT Chest pain, atypical Abnormal EKG Lower extremity cellulitis Leukocytosis Hypertension Morbid obesity, BMI 54 PLAN An acute coronary event has been ruled out. Obtain 2-D echocardiogram and Doppler study to assess cardiac structure and function. Ongoing medical treatment of underlying cellulitis. Pain is atypical for angina however given baseline abnormal EKG we will pursue outpatient stress testing when her infection has resolved. Thank you kindly for this consultation. Nurse Practitioner note has been reviewed, I agree with a documented findings and plan of care. Patient was seen and examined. Past Medical History Past Medical History: Cancer, Hypertension, Neurologic Disorder, Seizure Disorder Additional Past Medical History / Comment(s): cellulitis, back pain, partial on set seizures. breast cancer History of Any Multi-Drug Resistant Organisms: None Reported Past Surgical History: Cholecystectomy, Orthopedic Surgery, Tonsillectomy Additional Past Surgical History / Comment(s): Herbal tunnel release and cyst removal on the right wrist, open surgery on the left knee many years ago followed by open reconstructive surgery. Patient denies prosthetics. Right knee arthroscopically for medial meniscus tear, epidural steroid injections 2. Past Anesthesia/Blood Transfusion Reactions: Previous Problems w/ Anesthesia Additional Past Anesthesia/Blood Transfusion Reaction / Comment(s): patient states when she had her wrist surgery done she felt beginning of surgery. during dental work the anesthetics given make her "heart go stupid" Past Psychological History: No Psychological Hx Reported Smoking Status: Never smoker Past Alcohol Use History: None Reported Past Drug Use History: None Reported - Past Family History Father Additional Family Medical History / Comment(s): father had heart disease/valves r/t having rheumatic fever as a child. Mother Additional Family Medical History / Comment(s): multiple sclerosis Medications and Allergies Home Medications Medication Instructions Recorded Confirmed Type Hydrocodone/Acetaminophen [Flippin 1 tab PO Q8H PRN 06/23/14 02/16/21 History 5-325] ALPRAZolam [Xanax] 0.25 mg PO Q8H PRN 02/16/21 02/16/21 History Ascorbic Acid [Vitamin C] 250 mg PO DAILY 02/16/21 02/16/21 History Aspirin EC [Ecotrin Low Dose] 81 mg PO DAILY 02/16/21 02/16/21 History Baricitinib [Olumiant] 2 mg PO HS 02/16/21 02/16/21 History Biotin 2,500 mcg PO DAILY 02/16/21 02/16/21 History Calcium Citrate 630mg 630 mg PO DAILY 02/16/21 02/16/21 History Ergocalciferol [Vitamin D2 (1250 1,250 mcg PO JOHANSEN 02/16/21 02/16/21 History Mcg = 63104 Iu)] Folic Acid 1 mg PO DAILY 02/16/21 02/16/21 History Furosemide [Lasix] 40 mg PO DAILY 02/16/21 02/16/21 History Latanoprost/Pf [Latanoprost 0.005% 1 drop BOTH EYES HS 02/16/21 02/16/21 History Eye Drop] Loratadine [Claritin] 10 mg PO DAILY 02/16/21 02/16/21 History Losartan Potassium 100 mg PO DAILY 02/16/21 02/16/21 History Magnesium 143mg 143 mg PO DAILY 02/16/21 02/16/21 History Meloxicam [Mobic] 15 mg PO DAILY PRN 02/16/21 02/16/21 History Multivit-Min/Iron/Folic/Lutein 1 tab PO DAILY 02/16/21 02/16/21 History [Centrum Silver Women Tablet] Pantoprazole Sodium [Protonix] 20 mg PO HS 02/16/21 02/16/21 History Propranolol HCl [Propranolol HCl 120 mg PO HS 02/16/21 02/16/21 History ER] Vitamin A 2400mg 2,400 mg PO DAILY 02/16/21 02/16/21 History Vitamin B Complex 1 cap PO DAILY 02/16/21 02/16/21 History hydroCHLOROthiazide [Hydrodiuril] 25 mg PO DAILY 02/16/21 02/16/21 History predniSONE 2.5 mg PO DAILY 02/16/21 02/16/21 History Allergies Allergy/AdvReac Type Severity Reaction Status Date / Time morphine Allergy Itching/Ezequiel Verified 02/16/21 18:56 lucinations venom-honey bee Allergy Swelling Verified 02/16/21 18:56 [bee venom (honey bee)] Physical Exam Vitals: Vital Signs Temp Pulse Pulse Resp BP BP Pulse Ox 02/17/21 07:31 96 02/17/21 02:00 16 02/17/21 01:03 98.6 F 66 16 97/56 95 02/17/21 00:30 16 02/16/21 23:10 98.5 F 66 16 105/69 91 L 02/16/21 22:44 99.4 F 97 16 138/62 98 02/16/21 21:00 99.5 F 78 18 148/60 99 02/16/21 19:03 18 02/16/21 19:02 18 02/16/21 18:22 103.1 F H 02/16/21 17:58 100.2 F H 86 22 172/78 93 L Intake and Output 02/16/21 02/17/21 02/17/21 22:59 06:59 14:59 Other: # Voids 1 Weight 154.221 kg 154.221 kg Results 02/17/21 04:04 02/17/21 04:04 Cardiac Enzymes 02/16/21 02/16/21 02/16/21 Range/Units 18:48 19:24 22:22 AST 31 (14-36) U/L Troponin I <0.012 <0.012 (0.000-0.034) ng/mL 02/17/21 Range/Units 04:04 AST (14-36) U/L Troponin I <0.012 (0.000-0.034) ng/mL Coagulation 02/16/21 Range/Units 18:48 PT 13.8 H (9.0-12.0) sec APTT 26.0 (22.0-30.0) sec CBC 02/16/21 Range/Units 18:48 WBC 12.6 H (3.8-10.6) k/uL RBC 4.48 (3.80-5.40) m/uL Hgb 14.6 (11.4-16.0) gm/dL Hct 44.3 (34.0-46.0) % Plt Count 328 (150-450) k/uL Comprehensive Metabolic Panel 02/16/21 Range/Units 19:24 Sodium 134 L (137-145) mmol/L Potassium 3.7 (3.5-5.1) mmol/L Chloride 93 L (98-107) mmol/L Carbon Dioxide 32 H (22-30) mmol/L BUN 21 H (7-17) mg/dL Creatinine 0.76 (0.52-1.04) mg/dL Glucose 145 H (74-99) mg/dL Calcium 9.0 (8.4-10.2) mg/dL AST 31 (14-36) U/L ALT 29 (4-34) U/L Alkaline Phosphatase 85 (38-126) U/L Total Protein 6.7 (6.3-8.2) g/dL Albumin 4.1 (3.5-5.0) g/dL Current Medications Generic Name Dose Route Start Last Admin Trade Name Freq PRN Reason Stop Dose Admin Hydrocodone Bitart/Acetaminophen 1 each 02/16/21 23:16 02/17/21 05:16 Hydrocodone/Apap 5-325mg 1 Each Tab PO 1 each Q8H PRN Administration Pain Alprazolam 0.25 mg 02/16/21 23:16 Alprazolam 0.25 Mg Tab PO Q8H PRN Anxiety Aspirin 81 mg 02/17/21 09:00 Aspirin 81 Mg PO DAILY VIANCA Furosemide 40 mg 02/17/21 09:00 Furosemide 40 Mg Tab PO DAILY VIANCA Heparin Sodium (Porcine) 5,000 unit 02/17/21 08:00 Heparin Sodium,Porcine/Pf 5,000 Unit/0.5 Ml Syringe SQ Q8HR VIANCA Hydrochlorothiazide 25 mg 02/17/21 09:00 Hydrochlorothiazide 25 Mg Tab PO DAILY VIANCA Ampicillin Sodium/Sulbactam 100 mls @ 200 mls/hr 02/17/21 04:00 02/17/21 04:05 Sodium 3 gm/ Sodium Chloride IVPB 200 mls/hr Q6H VIANCA Administration Losartan Potassium 100 mg 02/17/21 09:00 Losartan 50 Mg Tab PO DAILY [facility] Multivitamins/Minerals 1 each 02/17/21 09:00 Vit A,C & Y-Lietlb-Stfwxbdx 1 Each Tab PO DAILY VIANCA Prednisone 2.5 mg 02/17/21 09:00 Prednisone 2.5 Mg Tab PO DAILY [facility] Intake and Output 02/16/21 02/17/21 02/17/21 22:59 06:59 14:59 Other: # Voids 1 Weight 154.221 kg 154.221 kg 02/16/21 18:48 02/16/21 19:24
--- NOTE | 2021-02-17 10:56 | ECHOF ---
Referral Reason:cp, abn ekg MEASUREMENTS -------- HEIGHT: 165.1 cm WEIGHT: 158.8 kg BP: Ao Diam: 2.6 cm (2.0 - 3.7) LA Diam: 4.6 cm (2.7 - 3.8) IVSd: 1.6 cm (0.6 - 1.1) LVIDd: 5.2 cm (3.9 - 5.3) LVPWd: 2.6 cm (0.6 - 1.1) IVSs: 2.2 cm LVIDs: 4.3 cm LVPWs: 2.8 cm EDV(Teich): 130 ml ESV(Teich): 82 ml EF(Teich): 37 % %FS: 18 % SV(Teich): 48 ml MV E Markos: 0.61 m/s MV DecT: 219 ms MV A Markos: 0.59 m/s MV E/A Ratio: 1.03 FINDINGS -------- Sinus rhythm. Morbid Obesity This was a techncally difficult study with suboptimal views, , Lumason utilized for enhancement of images. Overall left ventricular systolic function is low-normal with, an EF between 50 - 55 %. The RV was not well visualized. The left atrium was not well visualized. 5.0mg OF Lumason UTLIZED: 2 OR MORE WALL SEGMENTS NOT VISUALIZED. The aortic valve was not well visualized. The mitral valve was not well visualized. The tricuspid valve was not well visualized. Unable to estimate RVSP due to inadequate TR jet spect ral doppler profile. The pulmonic valve was not well visualized. Echo free space represents a pericardial fat pad. CONCLUSIONS -------- 1. Morbid Obesity 2. This was a techncally difficult study with suboptimal views, , Lumason utilized for enhancement of images. 3. Overall left ventricular systolic function is low-normal with, an EF between 50 - 55 %. 4. The RV was not well visualized. 5. The left atrium was not well visualized. 6. 5.0mg OF Lumason UTLIZED: 2 OR MORE WALL SEGMENTS NOT VISUALIZED. 7. The aortic valve was not well visualized. 8. The mitral valve was not well visualized. 9. The tricuspid valve was not well visualized. 10. Unable to estimate RVSP due to inadequate TR jet spectral doppler profile. 11. The pulmonic valve was not well visualized. 12. Echo free space represents a pericardial fat pad. CERAMIC PLATER: Rahel Sorensen RDCS
--- NOTE | 2021-02-17 13:18 | P.DS ---
Providers Date of admission: 02/16/21 20:52 Expected date of discharge: 02/17/21 Attending physician: Cl Morris MD Consults: 02/17/21 02:10 Consult Physician Urgent Consulting Provider: Luis Miguel Fernandez Consult Reason/Comments: Chest pain Do you want consulting provider notified?: Yes Primary care physician: Bry Silverio MD Hospital Course: The patient is 66-year-old female with a PMH of hypertension and chronic lower extremity edema who presented to the emergency room with multiple complaints. The patient reports that yesterday at around 3 PM, she began feeling ill, sub sequently developed a fever and body aches. She reports that she also experienced some substernal chest discomfort with associated shortness of breath, lasting for a few minutes at a time, and then resolving spontaneously. She also reported dysuria along with pain in her right leg. At time of interview, she reports no chest discomfort throughout the day today, though continues to have dysuria and increased urinary frequency. Denied headaches, visual disturbances or nausea, vomiting, diarrhea. Denied weakness, numbness, tingling. In the emergency room, EKG revealed normal sinus rhythm at 77 bpm along with T-wave inversions in precordial leads diffusely along with II and III. Chest x-ray was unremarkable. Laboratory evaluation was remarkable for WBC count 12.6, INR 1.4, sodium 134, CO2 32, BUN 21, glucose 145, and troponin less than 0.012. Right lower extremity cellulitis Patient spike fever up to 103.1 while in the ER. She was started on unasyn and followed clinically. Had no additional fevers and cellulitis improved. Patient reported clinical improvement in symptoms of fevers, chills, body aches, and chest discomfort. Blood cultures were pending at time of discharge. However, due to improvement of symptoms and cellulitic rash, patient was sent home with prescription for augmentin for an additional 6 days for total of 7 day course. Chest pain, Atypical -Cardiology consulted and ruled out ACS. Echocardiogram was a poor study, but demonstrated good EF. No discernable WMA, but 2 or more segments could not be visualized. Cardiology recommended outpatient stress test. Follow up instructions placed in DC paperwork. Hypertension -Continued with home meds, no adjustments made on discharge Assessment: Gen: awake, alert HEENT: normocephalic, atraumatic, good hearing acuity, moist mucous membranes Resp: good air exchange, breathing comfortably with no accessory muscle use, CTAB CVS: good distal perfusion x 4, RRR, no murmurs GI: soft, NTTP, ND, appropriate BS : no SPT, no CVAT, barber catheter not present MSK: b/l pitting edema, no clubbing, right LE cellulitis Neuro: non-focal, moving all extremities Psych: cooperative, euthymic mood Patient Condition at Discharge: Good Plan - Discharge Summary New Discharge Prescriptions: New Amoxicillin/Potassium Clav [Augmentin 875-125 Tablet] 1 tab PO Q12HR 6 Days #12 tab Continue Hydrocodone/Acetaminophen [Canon 5-325] 1 tab PO Q8H PRN PRN Reason: Pain Pantoprazole Sodium [Protonix] 20 mg PO HS Ergocalciferol [Vitamin D2 (1250 Mcg = 72223 Iu)] 1,250 mcg PO JOHANSEN predniSONE 2.5 mg PO DAILY Baricitinib [Olumiant] 2 mg PO HS Ascorbic Acid [Vitamin C] 250 mg PO DAILY Vitamin B Complex 1 cap PO DAILY Multivit-Min/Iron/Folic/Lutein [Centrum Silver Women Tablet] 1 tab PO DAILY Magnesium 143mg 143 mg PO DAILY Aspirin EC [Ecotrin Low Dose] 81 mg PO DAILY Meloxicam [Mobic] 15 mg PO DAILY PRN PRN Reason: Pain Loratadine [Claritin] 10 mg PO DAILY Latanoprost/Pf [Latanoprost 0.005% Eye Drop] 1 drop BOTH EYES HS Furosemide [Lasix] 40 mg PO DAILY ALPRAZolam [Xanax] 0.25 mg PO Q8H PRN PRN Reason: Anxiety Calcium Citrate 630mg 630 mg PO DAILY Propranolol HCl [Propranolol HCl ER] 120 mg PO HS Biotin 2,500 mcg PO DAILY Losartan Potassium 100 mg PO DAILY Folic Acid 1 mg PO DAILY Vitamin A 2400mg 2,400 mg PO DAILY Discontinued hydroCHLOROthiazide [Hydrodiuril] 25 mg PO DAILY Discharge Medication List Hydrocodone/Acetaminophen [Canon 5-325] 1 tab PO Q8H PRN 06/23/14 [History] ALPRAZolam [Xanax] 0.25 mg PO Q8H PRN 02/16/21 [History] Ascorbic Acid [Vitamin C] 250 mg PO DAILY 02/16/21 [History] Aspirin EC [Ecotrin Low Dose] 81 mg PO DAILY 02/16/21 [History] Baricitinib [Olumiant] 2 mg PO HS 02/16/21 [History] Biotin 2,500 mcg PO DAILY 02/16/21 [History] Calcium Citrate 630mg 630 mg PO DAILY 02/16/21 [History] Ergocalciferol [Vitamin D2 (1250 Mcg = 18613 Iu)] 1,250 mcg PO JOHANSEN 02/16/21 [History] Folic Acid 1 mg PO DAILY 02/16/21 [History] Furosemide [Lasix] 40 mg PO DAILY 02/16/21 [History] Latanoprost/Pf [Latanoprost 0.005% Eye Drop] 1 drop BOTH EYES HS 02/16/21 [History] Loratadine [Claritin] 10 mg PO DAILY 02/16/21 [History] Losartan Potassium 100 mg PO DAILY 02/16/21 [History] Magnesium 143mg 143 mg PO DAILY 02/16/21 [History] Meloxicam [Mobic] 15 mg PO DAILY PRN 02/16/21 [History] Multivit-Min/Iron/Folic/Lutein [Centrum Silver Women Tablet] 1 tab PO DAILY 02/16/21 [History] Pantoprazole Sodium [Protonix] 20 mg PO HS 02/16/21 [History] Propranolol HCl [Propranolol HCl ER] 120 mg PO HS 02/16/21 [History] Vitamin A 2400mg 2,400 mg PO DAILY 02/16/21 [History] Vitamin B Complex 1 cap PO DAILY 02/16/21 [History] predniSONE 2.5 mg PO DAILY 02/16/21 [History] Amoxicillin/Potassium Clav [Augmentin 875-125 Tablet] 1 tab PO Q12HR 6 Days #12 tab 02/17/21 [Rx] Follow up Appointment(s)/Referral(s): Kennedy Jorge DO [STAFF PHYSICIAN] - 2 Weeks (Office will call with appointment time) Bry Silverio MD [Primary Care Provider] - 02/24/21 3:00 pm Patient Instructions/Handouts: Chest Pain (DC), Cellulitis (DC), Heart Healthy Diet (DC) Discharge Disposition: HOME SELF-CARE
== END 2021-02-17 13:06 | disposition home or self-care (01) ==
LOC: EC 16:27 → 6NMEDSUR 20:52
PROVIDERS: ADMIT Internal Medicine; ATTEND Internal Medicine
DX: L03.115 Cellulitis of right lower limb (principal); R07.89 Other chest pain; I10 Essential (primary) hypertension; R94.31 Abnormal electrocardiogram [ECG] [EKG]; G40.909 Epilepsy, unspecified, not intractable, without status epilepticus; I87.2 Venous insufficiency (chronic) (peripheral); R51.9 Headache, unspecified; R30.0 Dysuria; R35.0 Frequency of micturition; E66.01 Morbid (severe) obesity due to excess calories; Z68.43 Body mass index [BMI] 50.0-59.9, adult; Z20.822 Contact with and (suspected) exposure to COVID-19; Z79.82 Long term (current) use of aspirin; Z79.899 Other long term (current) drug therapy; Z79.1 Long term (current) use of non-steroidal anti-inflammatories (NSAID); Z88.5 Allergy status to narcotic agent; Z91.030 Bee allergy status; Z85.3 Personal history of malignant neoplasm of breast; Z87.891 Personal history of nicotine dependence; Z90.49 Acquired absence of other specified parts of digestive tract; Z98.890 Other specified postprocedural states; Z82.49 Family history of ischemic heart disease and other diseases of the circulatory system; Z82.0 Family history of epilepsy and other diseases of the nervous system; Z83.1 Family history of other infectious and parasitic diseases
CPT/HCPCS: 96366; 96372; 93005 ×2; 96365; 99285; 36415; 94760; 80053; 80048; 83605 ×2; 84484 ×2; 85025; 85027; 85610 ×2; 85730; 81001; 87040; 87635; 71046; G0378 ×2; C8929; J0295 ×2; J7512; Q9950; J1644; 93306

== ENCOUNTER → 2021-03-02 | Outpatient (CLI) | payer OTHER ==
--- NOTE | 2021-03-02 21:24 | SFUN ---
SLEEP CENTER FOLLOW UP NOTE DATE OF SERVICE: 03/02/2021. 66-year-old lady has been followed in Sleep Center for treatment of obstructive sleep apnea-hypopnea syndrome. The patient continued to use her CPAP equipment every night. No complaints about snoring. Patient receiving her all CPAP supplies in time. I checked her CPAP unit. Pressure is 11 cm of water, usage 29/30 nights for more than 4 hours with average usage 8.1 hours per night. Leak is 10 L/minute which is normal. Apnea-hypopnea index is only 0.4, which is absolutely perfect. [place] Sleepiness Scale today increased to 15. MEDICATIONS: Furosemide 40 mg once a day, latanoprost, losartan 100 mg once a day, propranolol extended release 120 mg once a day, albuterol as needed. PHYSICAL EXAMINATION: GENERAL: Patient in no distress. BP 194/102, HR 70, RR 18, height 5 and 7 inches, weight 348 pounds, body mass index 54.6, temperature 98.6, oxygen saturation at room air 93%. HEENT: PERRLA, EOMI, evaluation of oropharynx showed tongue protrudes midline. NECK: Supple, no JVD. Thyroid is not palpable. LUNGS: Clear to percussion and to auscultation. Good air exchange. No wheezing or rhonchi. HEART: S1, S2 regular. No murmurs, gallops, or rubs. ABDOMEN: Obese. Soft and nontender. Bowel sounds are present. No organomegaly appreciated. EXTREMITIES: 1+ ankle edema. TRAFFIC DIRECTOR: Awake, alert, and oriented X3. Cranial nerves 2 to 7 intact. There is no fasciculation or atrophy. noted. No focal deficits observed. IMPRESSION: 1. Severe obstructive sleep apnea-hypopnea syndrome. Originally, apnea-hypopnea index 51.8. The patient demonstrated practically 100% compliance with treatment benefitting from treatment. Normal apnea-hypopnea index reading from the CPAP unit. 2. Morbid obesity. 3. Hypertension. 4. Rheumatoid arthritis. 5. Back problems. 6. Status post bilateral mastectomy for CA. 7. Status post laser treatment for bladder CA. 8. Status post cholecystectomy. 9. Status post bilateral knee replacement. PLAN: 1. Prescription for overnight oximetry on CPAP machine was sent to [facility]. 2. Losing weight. 3. Sleep hygiene with regular time in bed for 7-1/2 to 8 hours. 4. No driving if feeling sleepiness. Thank you very much for allowing me to participate in management of your patient. Sincerely, Javid Miguel MD, PhD, FAASM Diplomat of [employer] Pathology Laboratory Director of [facility] [place] MMODL / NICKIN: [id number] /
== END ==
LOC: SLEEP 13:46
PROVIDERS: ATTEND Internal Medicine
DX: G47.33 Obstructive sleep apnea (adult) (pediatric) (principal); E66.9 Obesity, unspecified; I10 Essential (primary) hypertension; M06.9 Rheumatoid arthritis, unspecified; M53.80 Other specified dorsopathies, site unspecified; Z90.49 Acquired absence of other specified parts of digestive tract; Z90.13 Acquired absence of bilateral breasts and nipples; Z96.653 Presence of artificial knee joint, bilateral; Z85.51 Personal history of malignant neoplasm of bladder; Z85.3 Personal history of malignant neoplasm of breast; Z98.890 Other specified postprocedural states; Z99.89 Dependence on other enabling machines and devices; Z68.43 Body mass index [BMI] 50.0-59.9, adult; Z79.899 Other long term (current) drug therapy; Z87.891 Personal history of nicotine dependence; Z88.5 Allergy status to narcotic agent; Z91.030 Bee allergy status

== ENCOUNTER 2021-06-22 15:01 | Emergency (ER) | payer MEDICARE, OTHER ==
[2021-06-22 15:59] VITALS: TEMP 97.9
[2021-06-22] MEDS ORDERED: SODIUM CHLORIDE 0.9% 1,000 ML IV STA (19:06)
--- NOTE | 2021-06-22 19:17 | ED ---
General Adult HPI - General Chief complaint: Back Pain/Injury Stated complaint: back pain/sent by pcp Time Seen by Provider: 06/22/21 18:02 Source: patient, RN notes reviewed Mode of arrival: ambulatory Limitations: no limitations - History of Present Illness Initial comments: 66-year-old female presents to the emergency department as directed [facility], for evaluation of left upper back pain, onset Sunday. Patient states pain is worsened by rotational movement of the neck as well as use the left arm such as while driving. Also states pain is worsened with deep inspiration. Denies injury or trauma. States she did take her [place] at home yesterday with improvement in pain level. Patient states she was evaluated at her primary care provider's office earlier today and her oxygen saturation was 83% therefore was sent to the ER for further evaluation. Patient was told that there is concern for a blood clot as she has a history of a left mastectomy in 2016. Patient denies feeling short of breath or having difficulty breathing. Denies chest pain and reports recently wearing a heart monitor for a month. States she has not had a fever, chills, headache, sore throat, cough, or palpitations. - Related Data Home Medications Medication Instructions Recorded Confirmed Hydrocodone/Acetaminophen [[place] 1 tab PO Q8H PRN 06/23/14 02/16/21 5-325] ALPRAZolam [Xanax] 0.25 mg PO Q8H PRN 02/16/21 02/16/21 Ascorbic Acid [Vitamin C] 250 mg PO DAILY 02/16/21 02/16/21 Aspirin EC [Ecotrin Low Dose] 81 mg PO DAILY 02/16/21 02/16/21 Baricitinib [Olumiant] 2 mg PO HS 02/16/21 02/16/21 Biotin [Biotin Disolve] 2,500 mcg PO DAILY 02/16/21 02/16/21 Calcium Citrate 630mg 630 mg PO DAILY 02/16/21 02/16/21 Ergocalciferol [Vitamin D2 (1250 1,250 mcg PO JOHANSEN 02/16/21 02/16/21 Mcg = 22530 Iu)] Folic Acid 1 mg PO DAILY 02/16/21 02/16/21 Furosemide [Lasix] 40 mg PO DAILY 02/16/21 02/16/21 Latanoprost/Pf [Latanoprost 0.005% 1 drop BOTH EYES HS 02/16/21 02/16/21 Eye Drop] Loratadine [Claritin] 10 mg PO DAILY 02/16/21 02/16/21 Losartan Potassium 100 mg PO DAILY 02/16/21 02/16/21 Magnesium 143mg 143 mg PO DAILY 02/16/21 02/16/21 Meloxicam [Mobic] 15 mg PO DAILY PRN 02/16/21 02/16/21 Multivit-Min/Iron/Folic/Lutein 1 tab PO DAILY 02/16/21 02/16/21 [Centrum Silver Women Tablet] Pantoprazole Sodium [Protonix] 20 mg PO HS 02/16/21 02/16/21 Propranolol HCl [Propranolol HCl 120 mg PO HS 02/16/21 02/16/21 ER] Vitamin A 2400mg 2,400 mg PO DAILY 02/16/21 02/16/21 Vitamin B Complex 1 cap PO DAILY 02/16/21 02/16/21 predniSONE 2.5 mg PO DAILY 02/16/21 02/16/21 Previous Rx's Medication Instructions Recorded Amoxicillin/Potassium Clav 1 tab PO Q12HR 6 Days #12 tab 02/17/21 [Augmentin 875-125 Tablet] Cyclobenzaprine [Flexeril] 10 mg PO BID PRN #10 tab 06/22/21 Lidocaine 5% Patch [Lidoderm 5% 1 patch TOPICAL DAILY PRN #7 patch 06/22/21 Patch] Allergies Allergy/AdvReac Type Severity Reaction Status Date / Time morphine Allergy Itching/Ezequiel Verified 06/22/21 15:59 lucinations venom-honey bee Allergy Swelling Verified 06/22/21 15:59 [bee venom (honey bee)] Review of Systems ROS Statement: Those systems with pertinent positive or pertinent negative responses have been documented in the HPI. ROS Other: All systems not noted in ROS Statement are negative. Past Medical History Past Medical History: Cancer, Hypertension, Neurologic Disorder, Seizure Disorder Additional Past Medical History / Comment(s): cellulitis, back pain, partial on set seizures. breast cancer History of Any Multi-Drug Resistant Organisms: None Reported Past Surgical History: Cholecystectomy, Orthopedic Surgery, Tonsillectomy Additional Past Surgical History / Comment(s): Herbal tunnel release and cyst removal on the right wrist, open surgery on the left knee many years ago followed by open reconstructive surgery. Patient denies prosthetics. Right knee arthroscopically for medial meniscus tear, epidural steroid injections 2. Past Anesthesia/Blood Transfusion Reactions: Previous Problems w/ Anesthesia Additional Past Anesthesia/Blood Transfusion Reaction / Comment(s): patient states when she had her wrist surgery done she felt beginning of surgery. during dental work the anesthetics given make her "heart go stupid" Past Psychological History: No Psychological Hx Reported Smoking Status: Never smoker Past Alcohol Use History: None Reported Past Drug Use History: None Reported - Past Family History Father Additional Family Medical History / Comment(s): father had heart disease/valves r/t having rheumatic fever as a child. Mother Additional Family Medical History / Comment(s): multiple sclerosis General Exam Limitations: no limitations (Well-developed, well-nourished female in no acute distress. Initial temperature 97.9, pulse 70, respirations 20, blood pressure 164/82, pulse ox 96% on room air.) General appearance: alert, in no apparent distress Neck exam: Present: normal inspection, full ROM (Decreased left sided rotational movement due to pain). Absent: tenderness, meningismus, lymphadenopathy Respiratory exam: Present: normal lung sounds bilaterally. Absent: respiratory distress, wheezes, rales, rhonchi, stridor, chest wall tenderness, decreased breath sounds, prolonged expiratory Cardiovascular Exam: Present: regular rate, normal rhythm, normal heart sounds. Absent: systolic murmur, diastolic murmur, rubs, gallop, clicks GI/Abdominal exam: Present: soft, normal bowel sounds. Absent: distended, tenderness, guarding, rebound, rigid Left General: Present: other (Range of motion intact), normal inspection Back exam: Present: normal inspection, muscle spasm, paraspinal tenderness (Left-sided Thoracic area paraspinal tenderness extends to the left scapula.). Absent: CVA tenderness (R), CVA tenderness (L), vertebral tenderness Neurological exam: Present: alert, oriented X3, CN II-XII intact Psychiatric exam: Present: normal affect, normal mood Skin exam: Present: warm, dry, intact, normal color. Absent: rash Course Vital Signs 06/22/21 06/22/21 06/22/21 15:57 18:43 22:12 Temperature 97.9 F Pulse Rate 70 72 64 Respiratory 20 20 18 Rate Blood Pressure 164/82 154/72 134/70 O2 Sat by Pulse 96 96 98 Oximetry Medical Decision Making - Medical Decision Making 66-year-old female presents to the emergency department for evaluation of left upper back pain. Upon exam, patient has left thoracic paraspinal muscle pain with rotational movement of the neck toward the left, as well as vigorous movement of the left arm. Patient was on continuous pulse oximetry throughout her stay with a saturation of 94% to 97%. Prior to arrival at the emergency department, patient was evaluated by her primary care provider. States she had a room air saturation of 83% and there was concern of possible blood clot in the lungs so she was sent to the emergency department where laboratory studies and chest x-ray were obtained. D-dimer was 0.38, troponin < 0.012. Chest x-ray was negative for any acute process. Vital signs stable. EKG shows normal sinus rhythm with nonspecific ST and T-wave changes that appear baseline for patient when compared with previous EKGs. Patient was given muscle relaxer and lidocaine patch, reports modest improvement in discomfort. This case patient's case was discussed with my attending, Dr. Kothari. Patient will be discharged home with prescriptions for muscle relaxer and lidocaine patch. Instructed to follow up with her primary care provider for a recheck in the next couple of days. Return parameters were discussed in detail. Patient verbalizes understanding and agrees with this plan. - Lab Data Result diagrams: 06/22/21 19:20 06/22/21 19:20 Lab Results 06/22/21 06/22/21 06/22/21 Range/Units 19:20 19:20 19:20 WBC 7.7 (3.8-10.6) k/uL RBC 4.48 (3.80-5.40) m/uL Hgb 14.5 (11.4-16.0) gm/dL Hct 44.7 (34.0-46.0) % MCV 99.7 (80.0-100.0) fL MCH 32.3 (25.0-35.0) pg MCHC 32.4 (31.0-37.0) g/dL RDW 13.3 (11.5-15.5) % Plt Count 384 (150-450) k/uL MPV 7.5 Neutrophils % 67 % Lymphocytes % 25 % Monocytes % 6 % Eosinophils % 1 % Basophils % 0 % Neutrophils # 5.1 (1.3-7.7) k/uL Lymphocytes # 1.9 (1.0-4.8) k/uL Monocytes # 0.5 (0-1.0) k/uL Eosinophils # 0.1 (0-0.7) k/uL Basophils # 0.0 (0-0.2) k/uL D-Dimer (<0.60) mg/L FEU Sodium 138 (137-145) mmol/L Potassium 4.0 (3.5-5.1) mmol/L Chloride 101 (98-107) mmol/L Carbon Dioxide 27 (22-30) mmol/L Anion Gap 10 mmol/L BUN 24 H (7-17) mg/dL Creatinine 0.67 (0.52-1.04) mg/dL Est GFR (CKD-EPI)AfAm >90 (>60 ml/min/1.73 sqM) Est GFR (CKD-EPI)NonAf >90 (>60 ml/min/1.73 sqM) Glucose 111 H (74-99) mg/dL Calcium 10.1 (8.4-10.2) mg/dL Magnesium 2.1 (1.6-2.3) mg/dL Total Bilirubin 0.5 (0.2-1.3) mg/dL AST 34 (14-36) U/L ALT 40 H (4-34) U/L Alkaline Phosphatase 87 (38-126) U/L Troponin I <0.012 (0.000-0.034) ng/mL Total Protein 7.8 (6.3-8.2) g/dL Albumin 4.7 (3.5-5.0) g/dL 06/22/21 Range/Units 19:20 WBC (3.8-10.6) k/uL RBC (3.80-5.40) m/uL Hgb (11.4-16.0) gm/dL Hct (34.0-46.0) % MCV (80.0-100.0) fL MCH (25.0-35.0) pg MCHC (31.0-37.0) g/dL RDW (11.5-15.5) % Plt Count (150-450) k/uL MPV Neutrophils % % Lymphocytes % % Monocytes % % Eosinophils % % Basophils % % Neutrophils # (1.3-7.7) k/uL Lymphocytes # (1.0-4.8) k/uL Monocytes # (0-1.0) k/uL Eosinophils # (0-0.7) k/uL Basophils # (0-0.2) k/uL D-Dimer 0.38 (<0.60) mg/L FEU Sodium (137-145) mmol/L Potassium (3.5-5.1) mmol/L Chloride (98-107) mmol/L Carbon Dioxide (22-30) mmol/L Anion Gap mmol/L BUN (7-17) mg/dL Creatinine (0.52-1.04) mg/dL Est GFR (CKD-EPI)AfAm (>60 ml/min/1.73 sqM) Est GFR (CKD-EPI)NonAf (>60 ml/min/1.73 sqM) Glucose (74-99) mg/dL Calcium (8.4-10.2) mg/dL Magnesium (1.6-2.3) mg/dL Total Bilirubin (0.2-1.3) mg/dL AST (14-36) U/L ALT (4-34) U/L Alkaline Phosphatase (38-126) U/L Troponin I (0.000-0.034) ng/mL Total Protein (6.3-8.2) g/dL Albumin (3.5-5.0) g/dL - EKG Data EKG shows normal: sinus rhythm Rate: normal EKG Comments: EKG was obtained at 2002 and shows sinus rhythm with occasional PVCs. Ventricular rate 70, SD interval 168, and QRS duration 100, QT/QTc to see 444/479. ST and T-wave abnormalities, as well as prolonged QT interval noted. When compared to previous EKG there are: no significant change - Radiology Data Radiology results: report reviewed, image reviewed Chest x-ray was obtained. Report reviewed in its entirety. Impression per Dr. Moraes is no active cardiopulmonary disease. No significant change. Disposition Clinical Impression: Musculoskeletal back pain, Muscle spasm of back Disposition: HOME SELF-CARE Condition: Stable Instructions (If sedation given, give patient instructions): Muscle Spasm (ED), Back Pain (ED) Additional Instructions: Gentle range of motion exercises. Apply heat or ice as needed to site of discomfort. Lidocaine patch to affected area. Follow-up with her primary care provider for recheck in the next 1-2 days. Return to the emergency department with any new, worsening, or concerning symptoms. Prescriptions: Cyclobenzaprine [Flexeril] 10 mg PO BID PRN #10 tab PRN Reason: Muscle Spasm Lidocaine 5% Patch [Lidoderm 5% Patch] 1 patch TOPICAL DAILY PRN #7 patch PRN Reason: Pain Is patient prescribed a controlled substance at d/c from ED?: No Referrals: Bry Silverio MD [Primary Care Provider] - 1-2 days Time of Disposition: 21:48
[2021-06-22 19:29] LABS: Basophils % (A) 0 %; Eosinophils # (A) 0.1 k/uL (0-0.7); Eosinophils % (A) 1 %; HCT 44.7 % (34.0-46.0); HGB 14.5 gm/dL (11.4-16.0); Lymphocytes # (A) 1.9 k/uL (1.0-4.8); Lymphocytes % (A) 25 %; MCH 32.3 pg (25.0-35.0); MCHC 32.4 g/dL (31.0-37.0); MCV 99.7 fL (80.0-100.0); Mean Platelet Volume 7.5; Monocytes # (A) 0.5 k/uL (0-1.0); Monocytes % (A) 6 %; Neutrophils # (A) 5.1 k/uL (1.3-7.7); Neutrophils % (A) 67 %; Platelet Count 384 k/uL (150-450); RBC 4.48 m/uL (3.80-5.40); RDW 13.3 % (11.5-15.5); WBC 7.7 k/uL (3.8-10.6)
[2021-06-22 19:38] LABS: ALT 40 U/L (4-34); AST 34 U/L (14-36); African American GFR (CKD) >90 (>60 ml/min/1.73 sqM); Albumin 4.7 g/dL (3.5-5.0); Alkaline Phosphatase 87 U/L (38-126); Anion Gap 10 mmol/L; Blood Urea Nitrogen 24 mg/dL (7-17); Calcium 10.1 mg/dL (8.4-10.2); Carbon Dioxide 27 mmol/L (22-30); Chloride 101 mmol/L (98-107); Glucose 111 mg/dL (74-99); Magnesium 2.1 mg/dL (1.6-2.3); Non-African American GFR(CKD) >90 (>60 ml/min/1.73 sqM); Sodium 138 mmol/L (137-145); Total Bilirubin 0.5 mg/dL (0.2-1.3); Total Protein 7.8 g/dL (6.3-8.2)
--- NOTE | 2021-06-22 19:51 | XR ---
EXAMINATION TYPE: XR chest 2V DATE OF EXAM: 06/22/2021 COMPARISON: 02/16/2021 HISTORY: Back pain TECHNIQUE: 2 views FINDINGS: Heart and mediastinum are normal. Lungs are clear of infiltrate. There is no heart failure. There are no hilar masses. The bony thorax is intact. IMPRESSION: No active cardiopulmonary disease.. No significant change.
[2021-06-22] MEDS ORDERED: ORPHENADRINE 30 MG/ML 2 ML VIAL IVP STA (20:45)
[2021-06-22] MEDS ORDERED: LIDOCAINE 5% PATCH TOPICAL SCH (21:00)
[2021-06-22 22:13] VITALS: BP 134/70; PULSE 64; RESP 18
== END 2021-06-22 22:13 | disposition home or self-care (01) ==
LOC: EC 15:01
DX: M54.9 Dorsalgia, unspecified (principal); M62.830 Muscle spasm of back; I10 Essential (primary) hypertension; Z79.82 Long term (current) use of aspirin; Z88.5 Allergy status to narcotic agent; Z85.3 Personal history of malignant neoplasm of breast; Z90.49 Acquired absence of other specified parts of digestive tract
CPT/HCPCS: 99284; 96374; 96361; 36415; 93005; 85379; 80053; 83735; 84484; 85025; 71046; J2360

== ENCOUNTER → 2021-07-18 | Outpatient (CLI) | payer MEDICARE, OTHER ==
--- NOTE | 2021-07-19 11:41 | MM ---
Reason for exam: additional evaluation requested from prior study. Last mammogram was performed 1 year and 2 months ago. History: Patient is postmenopausal, has history of other cancer at age 63, and has history of breast cancer at age 60. Implant in the left breast, October 2015. Implant Removal of the left breast, October 2015. Malignant US biopsy breast VAD LT of the left breast, September 01, 2015. Mastectomy of the left breast, 2016. Took hormonal contraceptives for 10 years. Physical Findings: Nurse did not find any significant physical abnormalities on exam. MG 3D Diag Mammo W/Cad RT CC and MLO view(s) were taken of the right breast. Prior study comparison: May 20, 2020, right breast MG diagnostic mammo RT w CAD. March 05, 2019, bilateral MG screen floyd unilateral w/cad. There are scattered fibroglandular densities. No significant new findings when compared with previous films. These results were verbally communicated with the patient and result sheet given to the patient on 07/18/21. ASSESSMENT: Negative, BI-RAD 1 RECOMMENDATION: Routine screening mammogram of the right breast in 1 year.
== END | disposition home or self-care (01) ==
LOC: RADMAMWWP 15:04
PROVIDERS: ATTEND Internal Medicine
DX: Z12.31 Encounter for screening mammogram for malignant neoplasm of breast (principal); Z78.0 Asymptomatic menopausal state; Z85.3 Personal history of malignant neoplasm of breast; R92.8 Other abnormal and inconclusive findings on diagnostic imaging of breast
CPT/HCPCS: 77065; G0279; 77061

== ENCOUNTER → 2021-09-01 | Outpatient (CLI) | payer MEDICARE, OTHER ==
--- NOTE | 2021-09-02 09:46 | SFUN ---
SLEEP CENTER FOLLOW UP NOTE DATE OF SERVICE: 09/01/2021 66-year-old lady has been followed in Sleep Center for treatment of obstructive sleep apnea-hypopnea syndrome. The patient continued to use her CPAP equipment every night for the whole night. Sleeps better with the machine. Still sometimes has leak from her mask. Originally, she used full-face mask which covered her nose and then we switched her to the Dream Wear mask which she is using now which goes to the face under the nose. I checked her CPAP unit. Usage is 30/30 nights. Average usage 8.2 hours per night. Leak is 36 L/minute. CPAP pressure is 11 cm of water. Apnea-hypopnea index is only 0.5 which is perfect. [place] Sleepiness Scale is 11. MEDICATIONS: Propranolol 120 mg once a day. Nifedipine 30 mg once a day, loratadine 10 mg once a day, latanoprost eye drops, losartan, hydrochlorothiazide 25 mg once a day, meloxicam 15 mg once a day, pantoprazole 20 mg once a day. 2 mg once a day, furosemide 40 mg once a day, aspirin 81 mg once a day. Prednisone once a day, alprazolam 0.25 mg once a day, hydrocodone 5/325 once a day, magnesium, vitamin C, poly vitamins supplements. PHYSICAL EXAMINATION: GENERAL: Patient in no distress. BP 159/65, HR 69 , RR 15, height 5 feet 6-1/4 inches, weight 336 pounds, body mass index 53.9. The patient lost about 12 pounds since previous visit. Temperature 97.4, oxygen saturation at room air 95%. Oropharynx: Low position of soft palate. NECK: Supple, no JVD. Thyroid is not palpable. LUNGS: Clear to percussion and to auscultation. Good air exchange. No wheezing or rhonchi. HEART: S1, S2 regular. No murmurs, gallops, or rubs. ABDOMEN: Obese. Soft and nontender. Bowel sounds are present. No organomegaly appreciated. EXTREMITIES: No clubbing or cyanosis. BIG DATA ADMIN: Awake, alert, and oriented X3. Cranial nerves 2 to 7 intact. There is no fasciculation or atrophy. noted. No focal deficits observed. IMPRESSION: 1. Severe obstructive sleep apnea-hypopnea syndrome. Apnea-hypopnea index during the sleep study 51.8. The patient demonstrated 100% compliance with treatment benefitting from treatment. 2. Morbid obesity. 3. Hypertension. 4. Rheumatoid arthritis. 5. Back problems. 6. Status post bilateral mastectomy for CA. 7. Status post laser treatment for bladder CA. 8. Status post cholecystectomy. 9. Status post bilateral knee replacement. PLAN: 1. Overnight oximetry for checking patient oxygen level during the night while on treatment with CPAP. 2. Losing weight. 3. Sleep hygiene with regular time in bed for at least 7-1/2 to 8 hours. 4. The patient will continue to use her CPAP equipment every night for the whole night. 5. I still think that the best mask for patient is Dream Wear. 6. I discussed with the patient in detail how to adjust humidity in the mask including temperature in the humidifier and temperature in the tube. I wrote prescription for heated tube. 7. Followup visit in 6 months or earlier if patient has any problems. Thank you very much for allowing me to participate in management of your patient. Sincerely, Javid Miguel MD, PhD, FAASM Diplomat of [employer] Sleep Medicine Board of [employer] Manager of [facility] [place] MMODL / IJN: [id number] /
== END ==
LOC: SLEEP 13:51
PROVIDERS: ATTEND Internal Medicine
DX: G47.33 Obstructive sleep apnea (adult) (pediatric) (principal); E66.01 Morbid (severe) obesity due to excess calories; I10 Essential (primary) hypertension; M06.9 Rheumatoid arthritis, unspecified; M54.9 Dorsalgia, unspecified; Z85.3 Personal history of malignant neoplasm of breast; Z90.13 Acquired absence of bilateral breasts and nipples; Z85.51 Personal history of malignant neoplasm of bladder; Z98.890 Other specified postprocedural states; Z90.49 Acquired absence of other specified parts of digestive tract; Z96.653 Presence of artificial knee joint, bilateral; Z68.43 Body mass index [BMI] 50.0-59.9, adult; Z79.899 Other long term (current) drug therapy; Z88.5 Allergy status to narcotic agent; Z91.030 Bee allergy status; Z87.891 Personal history of nicotine dependence

== ENCOUNTER → 2022-03-22 | Outpatient (CLI) | payer MEDICARE, OTHER ==
[2022-03-22 13:47] VITALS: BMI 53.2
== END ==
LOC: DBWHC3 12:00
PROVIDERS: ATTEND Internal Medicine
DX: E11.9 Type 2 diabetes mellitus without complications (principal); Z87.891 Personal history of nicotine dependence; Z88.5 Allergy status to narcotic agent; Z91.030 Bee allergy status
CPT/HCPCS: G0108 ×3

== ENCOUNTER → 2022-06-28 | Outpatient (CLI) | payer MEDICARE, OTHER ==
--- NOTE | 2022-06-28 10:24 | CTL ---
EXAMINATION TYPE: CT Low Dose Lung DATE OF EXAM ORDERED: 06/28/2022 COMPARISON: None HISTORY: . Low Dose CT Lung Screening CT DLP: 130.[address] CTDI: 4.0 mGy IV CONTRAST USED: None. SCREENING VISIT: First visit COMPARISON: None. TECHNIQUE: Low dose computed tomography scan was performed through the chest at 1 millimeter thick se ctions and reconstructed images in the coronal plane at [address] DIAGNOSTIC QUALITY: Satisfactory FINDINGS: LUNG NODULES: Groundglass nodule lateral right upper lobe measuring 7 mm image 45 of 261. No addition al nodules identified. LUNGS: COPD: Severity: Mild Fibrosis: Severity: Minimal Lymph nodes: None Other findings: None RIGHT PLEURAL SPACE: Effusion: None Calcification: None Thickening: None Pneumothorax: None LEFT PLEURAL SPACE: Effusion: None Calcification: None Thickening: None Pneumothorax: None HEART: Heart Size: Mildly enlarged Coronary calcification: Mild Pericardial effusion: None OTHER FINDINGS: Upper abdomen: No significant abnormality Bony thorax: Degenerative changes Supraclavicular region: No significant abnormalityOther: No significant abnormalityI IMPRESSION: Groundglass nodule right apical region. FOLLOW UP CT CHEST RECOMMENDATION: Follow-up screening in [address] LUNG RAD: LUNG RAD CATEGORY 3 probably benign. Six-month follow-up LDCT recommended.
== END | disposition home or self-care (01) ==
LOC: RADCTMAIN 09:30
PROVIDERS: ATTEND Internal Medicine Critical Care Medicine
DX: Z12.2 Encounter for screening for malignant neoplasm of respiratory organs (principal); Z87.891 Personal history of nicotine dependence
CPT/HCPCS: 71271

== ENCOUNTER → 2022-07-24 | Outpatient (CLI) | payer MEDICARE, OTHER ==
--- NOTE | 2022-07-25 09:02 | MM ---
Reason for Exam: Screening (asymptomatic). Last screening mammogram was performed 12 month(s) ago. Patient History: Menarche at age 15. First Full-Term at age 26. Postmenopausal. Other cancer, age 63. Breast cancer, left, age 60. Patient used Hormonal Contraceptives for 10 years. 2016, Mastectomy on the Left side. 09/01/2015, Malignant Core Biopsy on the left side. 10/2015, Implant Removal on the left side. 10/2015, Implant on the left side. Prior Study Comparison: 03/05/2019 Bilateral Screening Mammogram, [facility]. 05/20/2020 Right Diagnostic Mammogram, [facility]. 07/18/2021 Right Diagnostic Mammogram, [facility]. Tissue Density: Right: There are scattered fibroglandular densities. Findings: There is a occasional tiny benign-appearing round calcifications throughout the right breast redemonstrated. There is no suspicious new group of microcalcifications or new suspicious mass in the right breast. Overall Assessment: Benign, BI-RAD 2 Management: Screening Mammogram of the right breast in 1 year. A clinical breast exam by your physician is recommended on an annual basis and results should be correlated with mammographic findings. Electronically signed and approved by: Wilton Richmond M.D.
== END | disposition home or self-care (01) ==
LOC: RADMAMWWP 09:40
PROVIDERS: ATTEND Internal Medicine
DX: Z12.31 Encounter for screening mammogram for malignant neoplasm of breast (principal); Z78.0 Asymptomatic menopausal state; Z85.3 Personal history of malignant neoplasm of breast; Z98.890 Other specified postprocedural states; Z98.82 Breast implant status
CPT/HCPCS: 77067

== ENCOUNTER → 2022-08-31 | Outpatient (CLI) | payer MEDICARE, OTHER ==
--- NOTE | 2022-08-31 11:38 | P.PN ---
Subjective DATE: 08/31/2022 FOLLOW UP VISIT. Patient with obstructive sleep apnea hypopnea syndrome return to sleep center for follow-up visit. Information from previous visit have been reviewed. Patient is using PAP equipment every night for the whole night, getting PAP supplies in time. The patient does not have significant problems with the mask, PAP unit and humidification. [place] sleepiness scale is slightly increased to 13. I checked information from PAP unit. PAP unit pressure 11 cm H2O. Usage is 100 % for more then 4 hours, average 8 hours per night. Leak is 6.4 l/m, which is in acceptable range. Apnea Hypopnea Index is 0.4, which is normal. MEDICATIONS:1. Losartan 100 mg once a day 2. Hydrochlorothiazide 25 mg once a day 3. Nifedipin 30 mg once a day 4. Loratidine 10 mg once a day 5. Pantoprazole 6. Prednisone 2.5 mg once a day 7. Meloxicam 15 mg once a day 8. Metformin 500 mg twice a day During physical exam: GENERAL: A pleasant patient without any distress. VITAL SIGNS: BP 144/74, HR 71, RR 16 , weight 318.2, temperature 97.0, oxygen saturation at room air 96 % . HEENT: PERRLA, EOMI.low position of soft palate. NECK: Supple. No JVD. LUNGS: Clear to percussion and to auscultation. Good air exchange. No wheezing or rhonchi. HEART: S1, S2 regular. ABDOMEN: Soft and nontender. Obese EXTREMITIES: No clubbing or cyanosis. GIVING OFFICER: Awake, alert, and oriented x3. No focal deficit. Impressions: 1. Obstructive sleep apnea-hypopnea syndrome. Patient demonstrated great compliance with treatment, benefiting from treatment. 2. Obesity, patient lost 18 pounds since previous visit. 3. Diabetes mellitus type 2. 4. Hypertension. 5. Rheumatoid arthritis. 6. Back problems. 7. Status post bilateral mastectomy for cancer. 8. Status post the laser treatment for bladder cancer. 9. Status post cholecystectomy. 10. Status post bilateral knee replacement. Plan: 1. Continue using PAP equipment every night for the whole night. 2. To change air filter at least 1-2 times per month. 3. PAP unit should stay lower then position of the head. 4. Advised patient to remove all remaining water from humidifier canister daily and make it dry after each usage. Refill canister with fresh distilled water before each usage. 5. Sleep hygiene with regular time in bed for at least 8 hours. 6. Precautions related to driving. No driving if feel any sleepiness. 7. I will maintain prescription for PAP supplies including mask, tube, filters. 8. Follow up visit in 6 months or earlier if patient has any problems. 9. Watching and continue losing weight. Thank you very much for allowing me to participate in the management of your patient. Javid Miguel MD, PhD, FAASM. Diplomat of [place] [employer], Sleep Medicine Board by [place] [employer] Signing Agent of [facility] [place]
== END ==
LOC: SLEEP 11:12
PROVIDERS: ATTEND Internal Medicine
DX: G47.33 Obstructive sleep apnea (adult) (pediatric) (principal); E66.9 Obesity, unspecified; E11.9 Type 2 diabetes mellitus without complications; I10 Essential (primary) hypertension; M06.9 Rheumatoid arthritis, unspecified; M54.9 Dorsalgia, unspecified; Z90.13 Acquired absence of bilateral breasts and nipples; Z85.51 Personal history of malignant neoplasm of bladder; Z96.653 Presence of artificial knee joint, bilateral; Z90.49 Acquired absence of other specified parts of digestive tract; Z99.89 Dependence on other enabling machines and devices; Z88.5 Allergy status to narcotic agent; Z91.030 Bee allergy status; Z87.891 Personal history of nicotine dependence
CPT/HCPCS: 99212

== ENCOUNTER → 2022-12-22 | Outpatient (CLI) | payer MEDICARE, OTHER ==
--- NOTE | 2022-12-22 13:17 | CTL ---
EXAMINATION TYPE: CT Low Dose Lung DATE OF EXAM ORDERED: 12/22/2022 HISTORY: 67-year-old female with Z87.891, 6 month follow-up. Former smoker quit 10 years ago. 40 pack -year history. Lung cancer screening CT DLP: [address] CTDI: 4.14 mGy Automated exposure control for dose reduction was used. SCREENING VISIT: Six-month follow-up COMPARISON: 06/28/2022 TECHNIQUE: Low dose computed tomography scan was performed through the chest with coronal and sagitta l reconstructions. CT DIAGNOSTIC QUALITY: Limited, but interpretable FINDINGS: Heart limits of normal in size pericardial effusion. Scattered three-vessel coronary artery calcifica tions are present and are remarkable for coronary artery disease. Mild atherosclerotic arch calcifications with conventional arch vessel branching anatomy. No thoracic lymphadenopathy by CT size criteria. Mild to moderate diffuse bronchial wall thickening. Redemonstrated 1 cm groundglass nodule lateral ri ght upper lobe. No interval increase in size. Mild dependent atelectasis noted. Strandy atelectasis o r scarring the lower lungs. Very limited noncontrast assessment of the upper abdomen due to large patient body habitus. Mild multilevel degenerative disc disease in the thoracic spine along with scattered mild facet arthr opathy. IMPRESSION: 1. Lung RADS 2, benign. A 1 cm right upper lobe groundglass nodule remains unchanged for 6 months. Re turn to routine annual low-dose lung cancer screening CT. 2. Mild bronchial wall thickening suggests bronchitis or chronic asthma. CT LUNG RAD AND CT CHEST RECOMMENDATION: Lung-Rad 2 Benign Appearance or Behavior: Continue annual sc reening with LDCT in 12 months. S Modifier (other clinically significant findings): None
== END | disposition home or self-care (01) ==
LOC: RADCTMAIN 11:02
PROVIDERS: ATTEND Internal Medicine
DX: Z12.2 Encounter for screening for malignant neoplasm of respiratory organs (principal); J98.09 Other diseases of bronchus, not elsewhere classified; R91.1 Solitary pulmonary nodule; Z87.891 Personal history of nicotine dependence
CPT/HCPCS: 71271

== ENCOUNTER → 2023-03-29 | Outpatient (CLI) | payer MEDICARE, OTHER ==
--- NOTE | 2023-03-29 11:52 | P.PN ---
Subjective DATE: 03/29/2023 FOLLOW UP VISIT. Patient with obstructive sleep apnea hypopnea syndrome return to sleep center for follow-up visit. Information from previous visit have been reviewed. Patient is using PAP equipment every night for the whole night, getting PAP supplies in time. The patient does not have significant problems with the mask, PAP unit and humidification. [place] sleepiness scale is 8, which is normal. I checked information from PAP unit. PAP unit pressure 11 cm H2O. Usage is 100 % for more then 4 hours, average 7-3/4 hours per night. Leak is 7.1 l/m, which is in acceptable range. Apnea Hypopnea Index is 0.9, which is normal. MEDICATIONS:1. Losartan 100 mg once a day 2. Nifedepine 30 mg once a day 3. Furosemide 40 mg once a day 4. Metformin 500 mg twice a day 5. Propranolol 120 mg once a day 6. Latanoprost eyedrops During physical exam: GENERAL: A pleasant patient without any distress. VITAL SIGNS: BP 135/67, HR 72, RR 18 , weight 301.8, temperature 97.9, oxygen saturation at room air 98 % . HEENT: PERRLA, EOMI.low position of soft palate, Mallapati 3 . NECK: Supple. No JVD. LUNGS: Clear to percussion and to auscultation. Good air exchange. No wheezing or rhonchi. HEART: S1, S2 regular. ABDOMEN: Soft and nontender.[] EXTREMITIES: No clubbing or cyanosis. SKI BINDING FITTER AND REPAIRER: Awake, alert, and oriented x3. No focal deficit. Impressions: 1. Obstructive sleep apnea-hypopnea syndrome. Patient demonstrated great compliance with treatment, benefiting from treatment. 2. Hypertension. 3. Diabetes mellitus. 4. Obesity, patient lost 17 pounds since previous visit. 5. Rheumatoid arthritis. 6. Back problems. 7. Status post bilateral mastectomy for cancer. 8. Status post laser treatment for bladder cancer. 9. Status post bilateral knee replacement. 10. Status post cholecystectomy. Plan: 1. Continue using PAP equipment every night for the whole night. 2. To change air filter at least 1-2 times per month. 3. PAP unit should stay lower then position of the head. 4. Advised patient to remove all remaining water from humidifier canister daily and make it dry after each usage. Refill canister with fresh distilled water before each usage. 5. Sleep hygiene with regular time in bed for at least 8 hours. 6. Precautions related to driving. No driving if feel any sleepiness. 7. I will maintain prescription for PAP supplies including mask, tube, filters. 8. Watching and continue losing weight. 9. Follow up visit in 6 months or earlier if patient has any problems. Thank you very much for allowing me to participate in the management of your patient. Javid Miguel MD, PhD, FAASM. Diplomat of [place] [employer], Sleep Medicine Board by [place] [employer] Officer of [facility] [place]
== END ==
LOC: 3 N SLEEP 10:53
PROVIDERS: ATTEND Internal Medicine
DX: G47.33 Obstructive sleep apnea (adult) (pediatric) (principal); E11.9 Type 2 diabetes mellitus without complications; M06.9 Rheumatoid arthritis, unspecified; E66.9 Obesity, unspecified; I10 Essential (primary) hypertension; Z79.84 Long term (current) use of oral hypoglycemic drugs; Z79.899 Other long term (current) drug therapy; Z85.51 Personal history of malignant neoplasm of bladder; Z90.13 Acquired absence of bilateral breasts and nipples; Z90.49 Acquired absence of other specified parts of digestive tract; Z96.653 Presence of artificial knee joint, bilateral; Z99.89 Dependence on other enabling machines and devices
CPT/HCPCS: 99212

== ENCOUNTER 2023-04-04 10:18 | Day surgery (SDC) | payer MEDICARE, OTHER ==
[2023-03-28 13:14] VITALS: BMI 46.3
[~2023-04-04 10:18] MED LIST: ALPRAZolam 0.25 MG TAB PO PRN; ALPRAZolam 0.5 MG TAB PO PRN; ASPIRIN 325 MG TAB PO STA; ATORVASTATIN 80 MG TAB PO STA; HEPARIN SODIUM,PORCINE (1 ML) 2,500 UNIT in SODIUM CHLORIDE 0.9% 250 ML IRRIGATION PRN; HEPARIN SODIUM,PORCINE 10,000 UNIT in SODIUM CHLORIDE 0.9% 1,000 ML IRRIGATION PRN; NITROGLYCERIN SL TABS 0.4 MG TAB SUBLINGUAL PRN; SODIUM CHLORIDE 0.9% 1,000 ML in EMPTY BAG 1 BAG IV SCH
[2023-04-04] MEDS ORDERED: SODIUM CHLORIDE 0.9% 1,000 ML IV ONE (10:40)
[2023-04-04] MEDS ORDERED: LIDOCAINE 1% INJ 10MG/ML (20 ML MDV) ONE (10:59)
[2023-04-04] MEDS ORDERED: VERAPAMIL 2.5 MG/ML 2 ML AMP ONE (10:59)
[2023-04-04] MEDS ORDERED: HEPARIN SODIUM 1,000 UN/ML (10ML VL) ONE (11:02)
[2023-04-04] MEDS ORDERED: fentaNYL (PF) 50 MCG/ML 2 ML AMP ONE (11:02)
[2023-04-04 11:03] LABS: Glucose,Whole Blood 123 mg/dL (70-110)
[2023-04-04 11:04] VITALS: RESP 16; TEMP 98.4
[2023-04-04] MEDS ORDERED: MIDAZOLAM 2 MG/2 ML VIAL IVP ONE (11:23)
[2023-04-04] MEDS ORDERED: fentaNYL (PF) 50 MCG/1 ML VIAL IVP ONE (11:23)
[2023-04-04] MEDS ORDERED: LIDOCAINE 1% INJ 10MG/ML (20 ML MDV) SQ ONE (11:24)
[2023-04-04] MEDS ORDERED: VERAPAMIL SYRINGE (5 MG/10 ML) INTRAARTER ONE (11:26)
[2023-04-04] MEDS ORDERED: HEPARIN SODIUM 1,000 UN/ML (10ML VL) IV ONE (11:26)
[2023-04-04] MEDS ORDERED: IOPAMIDOL-370 100ML BTL INJ ONE (11:36)
--- NOTE | 2023-04-04 11:40 | P.CARDCATH ---
Description of Procedure: PROCEDURES PERFORMED: Left heart catheterization, bilateral coronary angiography, ultrasound guided arterial access INDICATION: Abnormal stress test, CT coronary calcium CONSENT:I have discussed the risks, benefits and alternative therapies for the above-mentioned procedure and for both sedation/analgesia as well as necessary blood product administration, if indicated, as they pertain to this patient. The patient has indicated understanding and acceptance of the risks and procedures discussed. PROCEDURE: After the risks, benefits and alternatives of the above mentioned procedure explained in detail with the patient, informed consent was obtained. Patient was taken to the catheterization lab and prepped and draped in usual fashion. Ultrasound guidance was used to assess for arterial access. 1% lidocaine was used to anesthetize the right radial artery. A 6-[place] sheath was placed in the right radial artery using modified Seldinger technique and ultrasound guidance. Left coronary angiography was performed with a 5-[place] JL 3.5 catheter and right coronary angiography was performed with a 5-[place] JR5 catheter in various views. A 5-[place] Island[place] FR5 catheter was inserted into the left ventricle and pressure measurements were obtained. The right radial sheath was removed and a TR band was placed with hemostasis achieved. The patient tolerated the procedure well. Patient was transported back to the post catheterization holding area in stable condition. Conscious Sedation: Patient was monitored under the direct supervision of myself for conscious sedation using Versed and fentanyl for a total duration of [] minutes HEMODYNAMICS: Aorta: 131/69 LV: 144/16, LVEDP 26 SELECTIVE CORONARY ARTERIOGRAPHY: LEFT MAIN: The left main is a large caliber vessel which bifurcates into the LAD and circumflex. There is no significant stenosis. LEFT ANTERIOR DESCENDING CORONARY ARTERY: LAD is a large caliber vessel which wraps around to the apex. There are mild luminal irregularities up to 10%. LEFT CIRCUMFLEX CORONARY ARTERY: Left circumflex is a moderate caliber vessel with mild luminal irregularities. RIGHT CORONARY ARTERY: The right coronary artery is a large caliber vessel which gives off a PDA and PLV branch and is the dominant vessel. There are mild luminal irregularities FINAL IMPRESSION: 1. Relatively normal coronary arteries other than mild luminal irregularities up to 10% 2. Elevated left sided filling pressures PLAN: 1. Aggressive risk factor modification per most recent ACC/AHA guidelines. 2. Consider increasing diuresis.
[2023-04-04 14:33] VITALS: BP 148/78; PULSE 70
[2023-04-04] MEDS ORDERED: ACETAMINOPHEN TAB 325 MG TAB ONE (14:47)
[2023-04-04] MEDS ORDERED: ACETAMINOPHEN TAB 325 MG TAB PO ONE (14:48)
== END 2023-04-04 15:46 | disposition home or self-care (01) ==
LOC: CATHCVL 10:18
PROVIDERS: ATTEND Internal Medicine
DX: R94.39 Abnormal result of other cardiovascular function study (principal); I10 Essential (primary) hypertension; E66.01 Morbid (severe) obesity due to excess calories; I87.2 Venous insufficiency (chronic) (peripheral); R07.89 Other chest pain; E78.5 Hyperlipidemia, unspecified; E11.9 Type 2 diabetes mellitus without complications; R00.2 Palpitations
CPT/HCPCS: 93458; 76937; C1769; C1894; J2250; J2001; J1644; Q9967; J3010

== ENCOUNTER → 2023-06-01 | Outpatient (CLI) | payer MEDICARE, OTHER ==
[2023-06-01 09:25] LABS: African American GFR (CKD) >90 (>60 ml/min/1.73 sqM); Blood Urea Nitrogen 23 mg/dL (7-17); Non-African American GFR(CKD) >90 (>60 ml/min/1.73 sqM)
--- NOTE | 2023-06-01 11:24 | CT ---
EXAMINATION TYPE: CT ChestAbdPelvis w con DATE OF EXAM: 06/01/2023 COMPARISON: CT chest 12/14/[address] urogram 11/30/2021 HISTORY: 68-year-old female M89.9, Disorder of bone, lytic lesions on RT shoulder. Hx bladder/breast ca TECHNIQUE: CT of the chest and abdomen, and pelvis performed with IV Contrast, patient injected with 100 mL of Isovue 300. Delayed images through the kidneys were obtained. Coronal/sagittal reconstructi ons performed. CT DLP: 2840.10 mGycm Automated exposure control for dose reduction was used. FINDINGS: CHEST: Heart normal size without pericardial effusion. Scattered LAD and RCA coronary calcifications are pre sent. Mild atherosclerotic arch calcifications with conventional arch vessel branching anatomy. No thoracic lymphadenopathy by CT size criteria. Small partially calcified lower right paratracheal n ode suggesting prior granulomatous disease. Some strandy areas of atelectasis in the lower lungs. Redemonstrated 1 cm ground glass nodule lateral right upper lobe. This can continue to be followed by annual lung cancer screening CT. No consolidation or pleural effusion. ABDOMEN: No focal liver lesion or biliary ductal dilatation. Portal venous system is patent. Cholecystectomy c lips. Overall multinodular thickening of the left adrenal gland appears similar from 11/30/2021. Right adrenal gland, left kidney, spleen with small anterior splenule, and pancreas within normal jacob its. Small 1.1 cm cortical hypodensity anterior right kidney not well seen previously. Suspected tiny edmundo ical cyst. There are numerous retroperitoneal nodes measuring up to 2.1 cm, new from 11/30/2021. Adenopathy continues down the right greater than left iliac chains measuring up to 2.5 cm, also new. No dilated small bowel, free fluid, or free air. No mesenteric adenopathy seen. Slnm-kn-zhhljsmr stool. Oral contrast progressed to the cecum. Normal appendix. Mild to moderate atherosclerotic calcifications infrarenal abdominal aorta and iliac arteries. Pelvis: Bladder is urine distended. Uterus anteverted by very bulky in appearance, likely reflecting multiple underlying fibroids. There is mass effect onto the dome of the bladder. Overall configuration is si milar to 11/30/2021. Multiple pelvic phleboliths. There is medial left obturator chain and left external iliac chain adenopathy measuring up to 5.7 x 2 .5 cm and on the right measuring up to 2.5 x 1.2 cm. No abnormal fluid collection the pelvis. Pelvic phleboliths. Bones: Advanced spondylotic changes throughout the lumbar spine. Lytic lesion within the T10 vertebral body not seen on the 12/22/2022 exam. IMPRESSION: 1. COMPARED TO 11/30/2021, THERE IS NEW RETROPERITONEAL ADENOPATHY MEASURING UP TO 2.1 CM, COMMON IL IAC CHAIN LYMPHADENOPATHY MEASURING UP TO 2.5 CM, AND PELVIC LYMPHADENOPATHY MEASURING UP TO 5.7 CM. FINDINGS ARE COMPATIBLE WITH RECURRENT DISEASE. 2. A ROUND LYTIC LESION WITHIN THE T10 VERTEBRAL BODY IS ALSO NEW AND SUSPICIOUS FOR AN OSSEOUS METAS TASIS. 3. THE 1 CM GROUNDGLASS NODULE LATERAL RIGHT UPPER LOBE REMAINS UNCHANGED. THIS CAN CONTINUE TO BE FO LLOWED ON THE PATIENT'S ANNUAL LUNG CANCER SCREENING CT. 4. SIMILAR CONFIGURATION TO THE NODULAR THICKENING OF THE LEFT ADRENAL GLAND WELL THE BULKY FIB ROID UTERUS.
== END | disposition home or self-care (01) ==
LOC: RADCTMAIN 08:16
PROVIDERS: ATTEND Internal Medicine
DX: M89.8X8 Other specified disorders of bone, other site (principal); D25.9 Leiomyoma of uterus, unspecified; R59.0 Localized enlarged lymph nodes; R91.8 Other nonspecific abnormal finding of lung field; Z85.3 Personal history of malignant neoplasm of breast
CPT/HCPCS: 82565; 84520; 71260; 74177; Q9967

== ENCOUNTER 2023-07-30 13:39 | Day surgery (SDC) | payer MEDICARE, OTHER ==
[~2023-07-30 13:39] MED LIST changes: +ACETAMINOPHEN TAB 500 MG TAB PO PRN; -ALPRAZolam 0.25 MG TAB PO PRN; -ALPRAZolam 0.5 MG TAB PO PRN; -ASPIRIN 325 MG TAB PO STA; -ATORVASTATIN 80 MG TAB PO STA; +DEXAMETHASONE SOD PHOSPHATE 4 MG/ML 1 ML VIAL IV ONE; -HEPARIN SODIUM,PORCINE (1 ML) 2,500 UNIT in SODIUM CHLORIDE 0.9% 250 ML IRRIGATION PRN; -HEPARIN SODIUM,PORCINE 10,000 UNIT in SODIUM CHLORIDE 0.9% 1,000 ML IRRIGATION PRN; +HEPARIN SODIUM,PORCINE/PF 5,000 UNIT/0.5 ML SYRINGE SQ PRN; +LACTATED RINGERS 1,000 ML IV SCH; +MIDAZOLAM 2 MG/2 ML VIAL IV PRN; -NITROGLYCERIN SL TABS 0.4 MG TAB SUBLINGUAL PRN; +ONDANSETRON 4 MG/2 ML VIAL IVP ONE; +Pre Op ABX Message 1 EACH MISC MISCELLANE ONE; -SODIUM CHLORIDE 0.9% 1,000 ML in EMPTY BAG 1 BAG IV SCH; +fentaNYL (PF) 50 MCG/ML 2 ML AMP IV PRN
[2023-07-30 14:46] VITALS: TEMP 98
[2023-07-30 14:52] LABS: Glucose,Whole Blood 104 mg/dL (70-110)
[2023-07-30] MEDS ORDERED: FAMOTIDINE 20 MG/2 ML VIAL IVP ONE (14:58)
--- NOTE | 2023-07-30 15:25 | P.GSHP ---
History of Present Illness H&P Date: 07/30/23 Chief Complaint: Bladder cancer This is a 68-year-old female is really diagnosed with bladder cancer. Patient presents today for Port-A-Cath placement Past Medical History Past Medical History: Cancer, Heart Failure, Diabetes Mellitus, Hypertension, Neurologic Disorder, Seizure Disorder, Sleep Apnea/CPAP/BIPAP, Thyroid Disorder Additional Past Medical History / Comment(s): Recent CT scan lung, "showed 3 ve ssel calcification, had Stress Test and BP dropped". Hx Cellulitis multiple times. Bilateral leg swelling. Back pain. "Ivan facial spasm/partial onset seizures", ongoing, unknown date of last seizure. Hx left breast cancer 2016. Hx bladder cancer 2017 and 2021/2022. Hx SARS 2013. CPAP use. Circulation issues. DDD, Scoliosis, joint problems, arthritis. Hx goiter and low thyroid in teens but ok now. History of Any Multi-Drug Resistant Organisms: None Reported Past Surgical History: Bladder Surgery, Breast Surgery, Cholecystectomy, Joint Replacement, Orthopedic Surgery, Tonsillectomy Additional Past Surgical History / Comment(s): Carpal tunnel release and cyst removal on the right wrist, steroid injection right wrist, open surgery on the left knee, followed by open reconstructive surgery, right knee arthroscopy for medial meniscus tear, bilateral knee replacements, lumbar epidural steroid injections X2, botox injections for seizures, left mastectomy and lymph node removal, vein procedure to left leg, colonoscopy with polyps removed. Past Anesthesia/Blood Transfusion Reactions: Previous Problems w/ Anesthesia, Family History of Problems w/ Anesthesia Additional Past Anesthesia/Blood Transfusion Reaction / Comment(s): Patient states when she had her wrist surgery done she felt the initial incision. States during dental work the anesthetics given make her heart feel fluttery. Son has trouble waking up. Past Psychological History: Anxiety Smoking Status: Former smoker Past Alcohol Use History: Rare Additional Past Alcohol Use History / Comment(s): Smoked 1 1/2-2 packs per day for 25-30 years, quit 12 years ago. Past Drug Use History: Marijuana Additional Drug Use History / Comment(s): Hx Marijuana use. None in quite a while. - Past Family History Father Additional Family Medical History / Comment(s): Father had heart disease/valves r/t having rheumatic fever as a child. Mother Additional Family Medical History / Comment(s): Multiple Sclerosis. Medications and Allergies Home Medications Medication Instructions Recorded Confirmed Type Aspirin EC [Ecotrin Low Dose] 81 mg PO DAILY 02/16/21 07/30/23 History Biotin [Biotin Disolve] 2,500 mcg PO DAILY 02/16/21 07/30/23 History Folic Acid 1 mg PO HS 02/16/21 07/30/23 History Latanoprost/Pf [Latanoprost 0.005% 1 drop BOTH EYES HS 02/16/21 07/30/23 History Eye Drop] Loratadine [Claritin] 10 mg PO DAILY 02/16/21 07/30/23 History Losartan Potassium 100 mg PO DAILY 02/16/21 07/30/23 History Multivit-Min/Iron/Folic/Lutein 1 tab PO DAILY 02/16/21 07/30/23 History [Centrum Silver Women Tablet] Propranolol HCl [Propranolol HCl 120 mg PO HS 02/16/21 07/30/23 History ER] Cyclobenzaprine [Flexeril] 10 mg PO BID PRN #10 tab 06/22/21 07/30/23 Rx Baclofen 10 mg PO DIRECTED PRN 03/28/23 07/30/23 History Cholecalciferol [Vitamin D3 (125 125 mcg PO DAILY 03/28/23 07/30/23 History Mcg = 5000 Iu)] Cinnamon Bark [Cinnamon] 500 mg PO DAILY 03/28/23 07/30/23 History Magnesium Oxide [Mag-Ox] 400 mg PO HS 03/28/23 07/30/23 History Mirabegron [Myrbetriq] 50 mg PO DAILY PRN 03/28/23 07/30/23 History NIFEdipine [Adalat CC] 60 mg PO DAILY 03/28/23 07/30/23 History metFORMIN HCL 500 mg PO BID 03/28/23 07/30/23 History Allergies Allergy/AdvReac Type Severity Reaction Status Date / Time ciprofloxacin [From Cipro] Allergy Unknown Verified 07/30/23 14:18 clindamycin Allergy Chest Pain Verified 07/30/23 14:18 insect venom Allergy Swelling Verified 07/30/23 14:18 morphine Allergy Itching/Ezequiel Verified 07/30/23 14:18 lucinations venom-honey bee Allergy Swelling Verified 07/30/23 14:18 [bee venom (honey bee)] Surgical - Exam Vital Signs Temp Pulse Resp BP Pulse Ox 98.0 F 65 12 149/71 96 07/30/23 14:24 07/30/23 14:24 07/30/23 14:24 07/30/23 14:24 07/30/23 14:24 - General well developed, well nourished, no distress - Eyes PERRL - ENT normal pinna - Neck no masses, no bruits - Respiratory normal expansion - Cardiovascular Rhythm: regular - Abdomen Abdomen: soft, non tender Assessment and Plan Assessment: History of bladder cancer. We'll perform Port-A-Cath placement
[2023-07-30] MEDS ORDERED: SODIUM CHLORIDE 0.9% 100 ML BAG ONE (15:26)
[2023-07-30] MEDS ORDERED: PROPOFOL 10 MG/ML 20 ML VIAL IV ONE (15:26)
[2023-07-30] MEDS ORDERED: ceFAZolin 1,000 MG VIAL ONE (15:26)
[2023-07-30] MEDS ORDERED: MIDAZOLAM 2 MG/2 ML VIAL ONE (15:26)
[2023-07-30] MEDS ORDERED: fentaNYL (PF) 50 MCG/ML 2 ML AMP ONE (15:26)
[2023-07-30] MEDS ORDERED: HEPARIN SODIUM,PORCINE 100 UNIT/ML 5 ML VIAL IV ONE (15:51)
[2023-07-30] MEDS ORDERED: SODIUM CHLORIDE 0.9% 50 ML with ceFAZolin 2,000 MG IV ONE ×2 (15:52)
[2023-07-30] MEDS ORDERED: LIDOCAINE 0.5%-EPI 1:200,000 50 ML VIAL SQ ONE (15:52)
--- NOTE | 2023-07-30 16:11 | P.OP ---
Date of Procedure: 07/30/23 Preoperative Diagnosis: Bladder cancer Postoperative Diagnosis: Bladder cancer Procedure(s) Performed: Insertion of right subclavian Port-A-Cath Anesthesia: MAC Surgeon: Leandro Levi Estimated Blood Loss (ml): 5 Pathology: none sent Condition: stable Disposition: PACU Description of Procedure: The patient was placed on the operating table in the supine position. The patient received IV sedation. The patient's chest was prepped and draped in the usual sterile fashion. A roll had been placed between the shoulder blades in a longitudinal fashion. After prepping and draping the skin was anesthetized 1% local Xylocaine. And then using the Seldinger technique the subclavian vein was cannulated. A wire was placed into the vein and fluoroscopy position the wire at the atrial caval junction. Next the dilator sheath was placed over top the wire and the wire was withdrawn. The catheter was positioned at the atriocaval position. The catheter was placed through the sheath after the dilator was withdrawn. The sheath was then withdrawn. Position of the catheter was confirmed with fluoroscopy. The Port-A-Cath was connected to the catheter. The Port-A-Cath was flushed with saline and then heparinized saline. The skin was closed interrupted 3-0 Monocryl suture. Dermabond was applied. Patient tolerated procedure well and was sent to recovery room stable condition.
[2023-07-30 16:23] VITALS: BP 115/68; RESP 16
--- NOTE | 2023-07-30 16:40 | XR ---
EXAMINATION TYPE: XR chest 1V portable DATE OF EXAM: 07/30/2023 4:33 PM CLINICAL INDICATION:Female, 68 years old with history of PORT DIAZ CATH INSERTION; [facility] COMPARISON: Chest radiographs from 06/22/2021 TECHNIQUE: XR chest 1V portable Frontal view of the chest. FINDINGS: Lungs/Pleura: There is no evidence of pleural effusion, focal consolidation, or pneumothorax. Pulmonary vascularity: Unremarkable. Heart/mediastinum: Cardiomediastinal silhouette is unremarkable. Musculoskeletal: No acute osseous pathology. Right chest wall [id number] with tip in the superior vena cava. No pneumothorax. IMPRESSION: 1. Right chest wall [id number] with tip in the superior vena cava. 2. Cardiomegaly and mild pulmonary vascular congestion. Correlate with BNP for congestive heart fail ure.
[2023-07-30 16:45] VITALS: PULSE 61
--- NOTE | 2023-07-31 08:07 | FL ---
EXAMINATION TYPE: FL guided central line placemt HISTORY: Fluoroscopy time Impression: 1. Fluoroscopy support provided to the referring physician.
== END 2023-07-30 17:09 | disposition home or self-care (01) ==
LOC: OR 13:39
PROVIDERS: ATTEND Surgery
DX: C67.9 Malignant neoplasm of bladder, unspecified (principal); I50.9 Heart failure, unspecified; E11.9 Type 2 diabetes mellitus without complications; I11.0 Hypertensive heart disease with heart failure; G40.909 Epilepsy, unspecified, not intractable, without status epilepticus; G47.33 Obstructive sleep apnea (adult) (pediatric); E07.9 Disorder of thyroid, unspecified; M41.9 Scoliosis, unspecified; Z45.2 Encounter for adjustment and management of vascular access device; Z85.3 Personal history of malignant neoplasm of breast; Z85.51 Personal history of malignant neoplasm of bladder; Z90.49 Acquired absence of other specified parts of digestive tract; F41.9 Anxiety disorder, unspecified; Z87.891 Personal history of nicotine dependence; Z91.030 Bee allergy status; Z88.1 Allergy status to other antibiotic agents; Z79.84 Long term (current) use of oral hypoglycemic drugs; Z79.899 Other long term (current) drug therapy
CPT/HCPCS: 77001; 71045; 36561; J2250; J1642; J1100; J2405; J0690; J3490; J1644

== ENCOUNTER → 2023-09-12 | Outpatient (CLI) | payer MEDICARE, OTHER ==
--- NOTE | 2023-09-18 08:39 | MM ---
Reason for Exam: Screening (asymptomatic). Last mammogram was performed 1 year(s) and 2 month(s) ago. Patient History: Menarche at age 15. First Full-Term at age 26. Postmenopausal. Other cancer, age 63. Breast cancer, left, age 60. Previous chest radiation therapy at age 60. Previous chemotherapy at age 63. Patient used Hormonal Contraceptives for 10 years. 2016, Mastectomy on the Left side. 09/01/2015, Malignant Core Biopsy on the left side. 10/2015, Implant Removal on the left side. 10/2015, Implant on the left side. Prior Study Comparison: 05/20/2020 Right Diagnostic Mammogram, [facility]. 07/18/2021 Right Diagnostic Mammogram, [facility]. 07/24/2022 Right MG 3D scr floyd unilateral w/cad., [facility]. Tissue Density: Right: There are scattered fibroglandular densities. Findings: Injection port projects over the right chest. There is no suspicious group of microcalcifications or new suspicious mass in either breast. Overall Assessment: Negative, BI-RAD 1 Management: Screening Mammogram of the right breast in 1 year. . Patient should continue monthly self-breast exams. A clinical breast exam by your physician is recommended on an annual basis. This exam should not preclude additional follow-up of suspicious palpable abnormalities. Electronically signed and approved by: Luisa Barros M.D. Radiologist
== END | disposition home or self-care (01) ==
LOC: RADMAMWWP 14:35
PROVIDERS: ATTEND Internal Medicine Hematology & Oncology
DX: Z12.31 Encounter for screening mammogram for malignant neoplasm of breast (principal); C67.9 Malignant neoplasm of bladder, unspecified; C79.51 Secondary malignant neoplasm of bone; D09.0 Carcinoma in situ of bladder; D05.12 Intraductal carcinoma in situ of left breast; I10 Essential (primary) hypertension; E11.9 Type 2 diabetes mellitus without complications; R92.323 Mammographic fibroglandular density, bilateral breasts; Z92.0 Personal history of contraception
CPT/HCPCS: 77067

== ENCOUNTER → 2023-11-02 | Outpatient (CLI) | payer MEDICARE, OTHER ==
[2023-11-02 10:22] LABS: African American GFR (CKD) >90 (>60 ml/min/1.73 sqM); Blood Urea Nitrogen 23 mg/dL (7-17); Non-African American GFR(CKD) >90 (>60 ml/min/1.73 sqM)
--- NOTE | 2023-11-02 11:56 | CT ---
EXAMINATION: CT CHEST, ABDOMEN AND PELVIS WITH IV CONTRAST DATE OF EXAMINATION: 2023. COMPARISON: 06/01/2023.. INDICATION: Follow-up of her breast and bladder cancer. PROCEDURE: Axial CT of the chest, abdomen and pelvis was performed following the intravenous adminis tration of 100 ml Isovue 300. Coronal and sagittal reformats were performed. CT dose lowering techni ques were used, to include: automated exposure control, adjustment for patient size, and/or use of it erative reconstruction. FINDINGS: CHEST: CHEST WALL: There is a right-sided Mediport with its tip in the superior vena cava. Mediastinum and Prisca: There is no axillary, mediastinal or hilar lymphadenopathy. Pleural and Pericardial spaces: There are no pleural or pericardial effusions. Cardiovascular: There is mild vascular calcification within the thoracic ureter without evidence of a neurysmal dilation or dissection. Mild patchy coronary calcifications are seen. Pulmonary Artery: There are no central pulmonary arterial filling defects. Lung Parenchyma and Airways: The heart side 1.1 cm nodular density in the right upper lobe on series 4 image 13 is not significantly changed. There are no new or enlarging nodules identified. ABDOMEN: Liver and Biliary system: Normal. Adrenal glands: Nodular thickening and nodularity seen within the left adrenal gland is unchanged. T he right adrenal gland is unremarkable.. Kidneys and ureters: Normal. Spleen: Normal. Pancreas: Normal. Gallbladder: Surgically absent. Lymph nodes, Peritoneum and mesentery: There is a retroperitoneal lymph node in the preaortic region on series 3 image 71 and measures approximately 1.6 cm in short axis diameter which previously measu red approximately 1.8 cm. There are a few additional scattered lymph nodes seen throughout the retrop eritoneum which are no longer enlarged by CT criteria as well as nonenlarged lymph nodes within the c ommon iliac chains bilaterally. Left external iliac lymph node measures 3.6 x 1.7 cm, previously 4.4 x 2.3 cm Gastrointestinal tract: There are no dilated loops of bowel or free intraperitoneal air. . The appe ndix is normal. There are some scattered colonic diverticulosis without evidence of diverticulosis. Aorta/IVC: There is moderate vascular calcification throughout the abdominal aorta without evidence of aneurysmal dilation or dissection.. IVC normal. Abdominal wall: Normal. PELVIS: Fluid: There is no free fluid in the pelvis. Lymph Nodes: There is no pelvic or inguinal lymphadenopathy.. Urinary bladder: Normal. BONES: Large area of sclerosis is seen within the T10 vertebral body which was previously noted to b e a lytic lesion as this may relate to a healing metastasis. Scattered degenerative changes otherwise seen throughout the spine. ADDITIONAL SIGNIFICANT FINDINGS: Unchanged uterine fibroids.. IMPRESSION: 1. Unchanged part solid right upper lobe pulmonary nodule. No new pulmonary nodules identified. 2. Improvement in the metastatic adenopathy within the abdomen and pelvis when compared to the previo us examination as above. 3. Unchanged left adrenal nodules. 4. Sclerosis in the previous area of a lytic lesion within the T10 vertebral body may relate to a imp roving and healing metastasis. Close monitoring recommended.
== END | disposition home or self-care (01) ==
LOC: RADCTMAIN 09:30
PROVIDERS: ATTEND Internal Medicine Hematology & Oncology
DX: E27.8 Other specified disorders of adrenal gland (principal); M89.8X8 Other specified disorders of bone, other site; R91.1 Solitary pulmonary nodule; C79.51 Secondary malignant neoplasm of bone; C67.9 Malignant neoplasm of bladder, unspecified; D50.9 Iron deficiency anemia, unspecified; D09.0 Carcinoma in situ of bladder; D05.12 Intraductal carcinoma in situ of left breast; Z71.3 Dietary counseling and surveillance; Z90.49 Acquired absence of other specified parts of digestive tract
CPT/HCPCS: 82565; 84520; 71260; 74177; 36415; Q9967

== ENCOUNTER 2023-12-06 17:04 | Emergency (ER) | payer MEDICARE, OTHER ==
[2023-12-06] MEDS: LORazepam 2 MG/ML INJ IM STA (17:25)
[2023-12-06] MEDS: MIDAZOLAM 1 MG/ML 5 ML VIAL IV STA ×3 (17:35→20:43)
[2023-12-06 17:37] VITALS: TEMP 97.6
[2023-12-06] MEDS: SODIUM CHLORIDE 0.9% 1,000 ML IV STA (17:56)
[2023-12-06] MEDS: ETOMIDATE 2 MG/ML 10 ML VIAL IVP STA (18:02)
--- NOTE | 2023-12-06 18:02 | CT ---
EXAMINATION TYPE: CT brain wo con CT DLP: 1227.4 mGycm, Automated exposure control for dose reduction was used. DATE OF EXAM: 12/06/2023 5:52 PM COMPARISON: None. CLINICAL INDICATION:Female, 68 years old with history of seizure., metastatic disease. TECHNIQUE: Brain: Axial CT images of the brain were obtained with coronal and sagittal reformats created and rev iewed. Contrast used: None. Oral contrast used: None. FINDINGS: Brain: Extra-axial spaces: No abnormal extra-axial fluid collections. Ventricular system: Within normal limits Cerebral parenchyma: Vasogenic edema within the right parietal/posterior frontal and left parietal as well as the occipital lobes. Also harris-white matter differentiation involving the right occipital lo be. No acute intraparenchymal hemorrhage or mass effect. There is blurring of the harris-white matter j unctions and some of these regions of 6 metastatic disease. Cerebellum: Unremarkable. Mass effect: No evidence of midline shift. Intracranial vasculature: unremarkable Soft tissues: Normal. Calvarium/osseous structures: No depressed skull fracture. Paranasal sinuses and mastoid air cells: Mild scattered paranasal sinus disease. Visualized orbits: Orbital contents are intact. IMPRESSION: Scattered vasogenic edema compatible with underlying metastatic disease. There are some areas of blur ring of the harris-white matter junction suggested possibly representing ischemia. MRI of the brain wit h and without IV contrast recommended.
[2023-12-06] MEDS: ROCURONIUM 10 MG/ML (5 ML VIAL) IV STA (18:03)
[2023-12-06] MEDS: DEXAMETHASONE SOD PHOSPHATE 10 MG/ML 1 ML VIAL IVP STA (18:17)
--- NOTE | 2023-12-06 18:24 | ED ---
Seizure HPI - General Chief Complaint: Seizure Stated Complaint: Stroke symptoms/AMS Time Seen by Provider: 12/06/23 17:06 Source: EMS Mode of arrival: EMS Limitations: no limitations - History of Present Illness Initial Comments: 68-year-old female with past medical history of bladder cancer metastasized to the bone who presents to the emergency department from her ophthalmology office. It was reported that the patient was there getting a dilated eye exam. They did use medications to dilate her eyes when the patient went unresponsive. EMS was called. They arrived on scene and found the patient to be seizing. She had full tonic-clonic seizure which lasted approximately a minute. Patient was bagged on the way in. She arrives combative. According to family she has no history of seizure disorder. She does have a history of bladder cancer which has metastasized to the bone. She recently just finished chemotherapy. The patient did recently have a head injury. Significant other at bedside states that the patient fell sitting into a chair this past weekend. She sustained a small hematoma but had no further injuries. No altered mental status onset today. No history of drug or alcohol use. No history of stroke. Patient is moving all extremities upon hospital arrival. Remainder of HPI is limited to obtain - Related Data Home Medications Medication Instructions Recorded Confirmed Aspirin EC [Ecotrin Low Dose] 81 mg PO DAILY 02/16/21 12/06/23 Biotin [Biotin Disolve] 2,500 mcg PO DAILY 02/16/21 12/06/23 Folic Acid 1 mg PO HS 02/16/21 12/06/23 Latanoprost/Pf [Latanoprost 0.005% 1 drop BOTH EYES HS 02/16/21 12/06/23 Eye Drop] Loratadine [Claritin] 10 mg PO DAILY 02/16/21 12/06/23 Losartan Potassium 100 mg PO DAILY 02/16/21 12/06/23 Multivit-Min/Iron/Folic/Lutein 1 tab PO DAILY 02/16/21 12/06/23 [Centrum Silver Women Tablet] Propranolol HCl [Propranolol HCl 120 mg PO HS 02/16/21 12/06/23 ER] Baclofen 10 mg PO DIRECTED PRN 03/28/23 12/06/23 Cholecalciferol [Vitamin D3 (125 125 mcg PO DAILY 03/28/23 12/06/23 Mcg = 5000 Iu)] Cinnamon Bark [Cinnamon] 500 mg PO DAILY 03/28/23 12/06/23 Magnesium Oxide [Mag-Ox] 400 mg PO HS 03/28/23 12/06/23 Mirabegron [Myrbetriq] 50 mg PO DAILY PRN 03/28/23 12/06/23 NIFEdipine [Adalat CC] 60 mg PO DAILY 03/28/23 12/06/23 metFORMIN HCL 500 mg PO BID 03/28/23 12/06/23 Previous Rx's Medication Instructions Recorded Cyclobenzaprine [Flexeril] 10 mg PO BID PRN #10 tab 06/22/21 Allergies Allergy/AdvReac Type Severity Reaction Status Date / Time ciprofloxacin [From Cipro] Allergy Unknown Verified 12/06/23 17:20 clindamycin Allergy Chest Pain Verified 12/06/23 17:20 insect venom Allergy Swelling Verified 12/06/23 17:20 morphine Allergy Itching/Ezequiel Verified 12/06/23 17:20 lucinations venom-honey bee Allergy Swelling Verified 12/06/23 17:20 [bee venom (honey bee)] Review of Systems ROS Statement: Those systems with pertinent positive or pertinent negative responses have been documented in the HPI. ROS Other: All systems not noted in ROS Statement are negative. Past Medical History Past Medical History: Cancer, Heart Failure, Diabetes Mellitus, Hypertension, Neurologic Disorder, Seizure Disorder, Sleep Apnea/CPAP/BIPAP, Thyroid Disorder Additional Past Medical History / Comment(s): Recent CT scan lung, "showed 3 vessel calcification, had Stress Test and BP dropped". Hx Cellulitis multiple times. Bilateral leg swelling. Back pain. "Ivan facial spasm/partial onset seizures", ongoing, unknown date of last seizure. Hx left breast cancer 2016. Hx bladder cancer 2017 and . Hx SARS 2013. CPAP use. Circulation issues. DDD, Scoliosis, joint problems, arthritis. Hx goiter and low thyroid in teens but ok now. History of Any Multi-Drug Resistant Organisms: None Reported Past Surgical History: Bladder Surgery, Breast Surgery, Cholecystectomy, Joint Replacement, Orthopedic Surgery, Tonsillectomy Additional Past Surgical History / Comment(s): Carpal tunnel release and cyst removal on the right wrist, steroid injection right wrist, open surgery on the left knee, followed by open reconstructive surgery, right knee arthroscopy for medial meniscus tear, bilateral knee replacements, lumbar epidural steroid injections X2, botox injections for seizures, left mastectomy and lymph node removal, vein procedure to left leg, colonoscopy with polyps removed. Past Anesthesia/Blood Transfusion Reactions: Previous Problems w/ Anesthesia, Family History of Problems w/ Anesthesia Additional Past Anesthesia/Blood Transfusion Reaction / Comment(s): Patient states when she had her wrist surgery done she felt the initial incision. States during dental work the anesthetics given make her heart feel fluttery. Son has trouble waking up. Past Psychological History: Anxiety Smoking Status: Former smoker Past Alcohol Use History: Rare Past Drug Use History: Marijuana - Past Family History Father Additional Family Medical History / Comment(s): Father had heart disease/valves r/t having rheumatic fever as a child. Mother Additional Family Medical History / Comment(s): Multiple Sclerosis. General Exam Limitations: altered mental status General appearance: other (Agitated) Head exam: Present: atraumatic, normocephalic, normal inspection Pupils: Present: mydriatic ENT exam: Present: normal exam, mucous membranes moist Respiratory exam: Present: normal lung sounds bilaterally. Absent: respiratory distress, wheezes, rales, rhonchi, stridor Cardiovascular Exam: Present: normal rhythm, tachycardia GI/Abdominal exam: Present: soft, normal bowel sounds. Absent: distended, tenderness, guarding, rebound, rigid Neurological exam: Present: altered, other (Patient is moving all extremities. She is agitated. She is thrashing around in the bed) Skin exam: Present: warm, intact, normal color, diaphoretic. Absent: rash Course Vital Signs 12/06/23 12/06/23 12/06/23 17:15 18:04 18:13 Temperature 97.6 F Pulse Rate 115 H 85 Respiratory 26 H 14 Rate Blood Pressure 106/47 135/49 O2 Sat by Pulse 95 99 Oximetry Fraction of 100 Inspired Oxygen (FIO2) 12/06/23 12/06/23 12/06/23 18:15 18:23 19:12 Temperature Pulse Rate 125 H 96 Respiratory 20 20 Rate Blood Pressure 193/109 163/79 O2 Sat by Pulse 99 100 Oximetry Fraction of 100 Inspired Oxygen (FIO2) 12/06/23 19:24 Temperature Pulse Rate Respiratory Rate Blood Pressure O2 Sat by Pulse Oximetry Fraction of 50 Inspired Oxygen (FIO2) - Reevaluation(s) Reevaluation #1: Spoke with Miguel Lopez - needs to page neurosurgery 12/06/23 18:15 Reevaluation #2: Still awaiting callback from [facility] 12/06/23 18:50 Procedures - Intubation Sedative: Etomidate Mg Given: 20 Paralytic: Rocuronium Mg Given: 100 Laryngoscope: Theron Size: 4 ET Tube Size: 7.5 ET Tube Uncuffed: No Tube Secured Depth (cm): 23 Tube Secured Location: lips Tube Placement Confirmation: visualized tube passing through cords, equal breath sounds bilaterally, no breath sounds over epigastrium, confirmation by capnomet ry Patient Tolerated Procedure: well, no complications Medical Decision Making - Medical Decision Making Was pt. sent in by a medical professional or institution (, PA, [facility], urgent care, hospital, or prison...) When possible be specific @ -Patient was sent in from her eye office Did you speak to anyone other than the patient for history (EMS, parent, family, police, friend...)? What history was obtained from this source @ -Spoke with ems and the patient's and son for transfer Did you review nursing and triage notes (agree or disagree)? Why? @ -I reviewed and agree with nursing and triage notes Were old charts reviewed (outside hosp., previous admission, EMS record, old EKG, old radiological studies, urgent care reports/EKG's, prison records)? Report findings @ -I reviewed imaging studies that the patient has had a CT chest abdomen pelvis from November 02, 2023 Differential Diagnosis (chest pain, altered mental status, abdominal pain women, abdominal pain men, vaginal bleeding, weakness, fever, dyspnea, syncope, headache, dizziness, GI bleed, back pain, seizure, CVA, palpatations, mental health, musculoskeletal)? @ -Differential Altered Mental Status: Hypoglycemia, DKA, hypercapnia, ETOH, overdose, CO poisoning, trauma, myxedema coma, HTN encephalopathy, infection, encephalitis, psychosis, intercranial hemorrhage, hepatic encephalopathy, meningitis, CVA, this is not meant to be an all-inclusive list Differential Seizure: Recurrent seizure disorder, febrile seizure, alcohol withdrawal, stimulants, meningitis, encephalitis, intercranial hemorrhage, intracranial tumor, stroke, eclampsia, thyrotoxicosis, hypocalcemia, hyponatremia, hypernatremia, hypomagnesemia, psychogenic, this is not meant to be an all-inclusive list. EKG interpreted by me (3pts min.). @ -Yes and demonstrates sinus rhythm with a rate of 88. NM interval 203. QRS 106. QTc of 438. No acute ST segment elevations. Mild ST depression inferior, anterior and lateral leads X-rays interpreted by me (1pt min.). @ -Yes and demonstrates adequate placement of the ET tube CT interpreted by me (1pt min.). @ -CT of the brain demonstrates multiple areas of vasogenic edema concerning for underlying metastasis U/S interpreted by me (1pt. min.). @ -None done What testing was considered but not performed or refused? (CT, X-rays, U/S, labs)? Why? @ -None What meds were considered but not given or refused? Why? @ -None Did you discuss the management of the patient with other professionals (prof carine i.e. , PA, [facility], lab, RT, psych nurse, community mental health social worker, dough catcher, teacher, chief data officer, pillowcase cutter)? Give summary @ -Poke with Dr. Torres from [facility] who will accept transfer the patient Was smoking cessation discussed for >3mins.? @ -No Was critical care preformed (if so, how long)? @ -Yes, 50 minutes for vent management, management of his epilepticus and transferred to tertiary facility Were there social determinants of health that impacted care today? How? (Homelessness, low income, unemployed, alcoholism, drug addiction, transportation, low edu. Level, literacy, decrease access to med. care, correction, rehab)? @ -No Was there de-escalation of care discussed even if they declined (Discuss DNR or withdrawal of care, Hospice)? DNR status @ -Yes and family would like the patient to be full code What co-morbidities impacted this encounter? (DM, HTN, Smoking, COPD, CAD, Cancer, CVA, ARF, Chemo, Hep., AIDS, mental health diagnosis, sleep apnea, morbid obesity)? @ -Bladder cancer with metastasis to her spine Was patient admitted / discharged? Hospital course, mention meds given and route, prescriptions, significant lab abnormalities, going to OR and other pertinent info. @ -Upon arrival patient was placed into room 3. Patient is combative with staff. She was given 2 mg of Ativan IM as she has remove the IV that EMS did place. Vitals are obtained. IV was established. Laboratory studies were obtained. Patient does have a 1 minute full tonic-clonic seizure. At this time the patient was given 5 mg of IV Versed. Patient becomes postictal and taken fo r CT. CT does demonstrate multiple areas of vasogenic edema. Patient is returned to the trauma bay. I do discuss this with family. They would like the patient to be a full code. Agreeable to intubation as patient has yet to return to her normal baseline status at this time. Patient is intubated and started on a propofol drip. She was given 10 mg decadron. Laboratory studies are reviewed. Family is requesting [facility] facilities as we are unable to keep the patient at our facility due to lack of neurosurgical coverage and inability to care for a status epilepticus patient. I spoke with Dr. Torres at [facility] who was agreeable to accept transfer the patient. Patient answered via [facility] ambulance with a guarded prognosis. Undiagnosed new problem with uncertain prognosis? @ -yes Drug Therapy requiring intensive monitoring for toxicity (Heparin, Nitro, Insulin, Cardizem)? @ -propofol Were any procedures done? @ -Intubation Diagnosis/symptom? @ -Status epilepticus, ventilator dependent, vasogenic edema secondary to brain mets - new, history of bladder cancer, lactic acidosis Acute, or Chronic, or Acute on Chronic? @ -Acute Uncomplicated (without systemic symptoms) or Complicated (systemic symptoms)? @ -complicated Side effects of treatment? @ -No Exacerbation, Progression, or Severe Exacerbation? @ -No Poses a threat to life or bodily function? How? (Chest pain, [place], [place], pneumonia, PE, COPD, DKA, ARF, appy, cholecystitis, CVA, Diverticulitis, Homicidal, Suicida l, threat to staff... and all critical care pts) @ -yes patient is intubated for airway protection - Lab Data Result diagrams: 12/06/23 17:42 12/06/23 17:42 Lab Results 12/06/23 12/06/23 12/06/23 Range/Units 17:42 17:42 17:42 WBC 7.2 (3.8-10.6) k/uL RBC 4.04 (3.80-5.40) m/uL Hgb 13.4 (11.4-16.0) gm/dL Hct 41.4 (34.0-46.0) % MCV 102.3 H (80.0-100.0) fL MCH 33.1 (25.0-35.0) pg MCHC 32.4 (31.0-37.0) g/dL RDW 14.8 (11.5-15.5) % Plt Count 258 (150-450) k/uL MPV 7.8 Neutrophils % 75 % Lymphocytes % 15 % Monocytes % 7 % Eosinophils % 1 % Basophils % 0 % Neutrophils # 5.3 (1.3-7.7) k/uL Lymphocytes # 1.1 (1.0-4.8) k/uL Monocytes # 0.5 (0-1.0) k/uL Eosinophils # 0.1 (0-0.7) k/uL Basophils # 0.0 (0-0.2) k/uL Macrocytosis Slight Sodium 140 (137-145) mmol/L Potassium 4.3 (3.5-5.1) mmol/L Chloride 103 (98-107) mmol/L Carbon Dioxide 24 (22-30) mmol/L Anion Gap 13 mmol/L BUN 20 H (7-17) mg/dL Creatinine 0.64 (0.52-1.04) mg/dL Est GFR (CKD-EPI)AfAm >90 (>60 ml/min/1.73 sqM) Est GFR (CKD-EPI)NonAf >90 (>60 ml/min/1.73 sqM) Glucose 131 H (74-99) mg/dL Plasma Lactic Acid Umer (0.7-2.0) mmol/L Calcium 9.5 (8.4-10.2) mg/dL Magnesium 1.7 (1.6-2.3) mg/dL Total Bilirubin 0.4 (0.2-1.3) mg/dL AST 25 (14-36) U/L ALT 25 (4-34) U/L Alkaline Phosphatase 91 (38-126) U/L Total Protein 7.3 (6.3-8.2) g/dL Albumin 4.3 (3.5-5.0) g/dL TSH 2.780 (0.465-4.680) mIU/L Urine Color Colorless Urine Appearance Clear (Clear) Urine pH 7.0 (5.0-8.0) Ur Specific [place] 1.012 (1.001-1.035) Urine Protein Negative (Negative) Urine Glucose (UA) Negative (Negative) Urine Ketones Negative (Negative) Urine Blood Negative (Negative) Urine Nitrite Negative (Negative) Urine Bilirubin Negative (Negative) Urine Urobilinogen <2.0 (<2.0) mg/dL Ur Leukocyte Esterase Negative (Negative) Urine Opiates Screen Not Detected (NotDetected) Ur Oxycodone Screen Not Detected (NotDetected) Urine Methadone Screen Not Detected (NotDetected) Ur Barbiturates Screen Not Detected (NotDetected) U Tricyclic Antidepress Not Detected (NotDetected) Ur Phencyclidine Scrn Not Detected (NotDetected) Ur Amphetamines Screen Not Detected (NotDetected) U Methamphetamines Scrn Not Detected (NotDetected) U Benzodiazepines Scrn Not Detected (NotDetected) Urine Cocaine Screen Not Detected (NotDetected) U Marijuana (THC) Screen Not Detected (NotDetected) Serum Alcohol <10 mg/dL 12/06/23 Range/Units 17:42 WBC (3.8-10.6) k/uL RBC (3.80-5.40) m/uL Hgb (11.4-16.0) gm/dL Hct (34.0-46.0) % MCV (80.0-100.0) fL MCH (25.0-35.0) pg MCHC (31.0-37.0) g/dL RDW (11.5-15.5) % Plt Count (150-450) k/uL MPV Neutrophils % % Lymphocytes % % Monocytes % % Eosinophils % % Basophils % % Neutrophils # (1.3-7.7) k/uL Lymphocytes # (1.0-4.8) k/uL Monocytes # (0-1.0) k/uL Eosinophils # (0-0.7) k/uL Basophils # (0-0.2) k/uL Macrocytosis Sodium (137-145) mmol/L Potassium (3.5-5.1) mmol/L Chloride (98-107) mmol/L Carbon Dioxide (22-30) mmol/L Anion Gap mmol/L BUN (7-17) mg/dL Creatinine (0.52-1.04) mg/dL Est GFR (CKD-EPI)AfAm (>60 ml/min/1.73 sqM) Est GFR (CKD-EPI)NonAf (>60 ml/min/1.73 sqM) Glucose (74-99) mg/dL Plasma Lactic Acid Umer 5.7 H* (0.7-2.0) mmol/L Calcium (8.4-10.2) mg/dL Magnesium (1.6-2.3) mg/dL Total Bilirubin (0.2-1.3) mg/dL AST (14-36) U/L ALT (4-34) U/L Alkaline Phosphatase (38-126) U/L Total Protein (6.3-8.2) g/dL Albumin (3.5-5.0) g/dL TSH (0.465-4.680) mIU/L Urine Color Urine Appearance (Clear) Urine pH (5.0-8.0) Ur Specific [place] (1.001-1.035) Urine Protein (Negative) Urine Glucose (UA) (Negative) Urine Ketones (Negative) Urine Blood (Negative) Urine Nitrite (Negative) Urine Bilirubin (Negative) Urine Urobilinogen (<2.0) mg/dL Ur Leukocyte Esterase (Negative) Urine Opiates Screen (NotDetected) Ur Oxycodone Screen (NotDetected) Urine Methadone Screen (NotDetected) Ur Barbiturates Screen (NotDetected) U Tricyclic Antidepress (NotDetected) Ur Phencyclidine Scrn (NotDetected) Ur Amphetamines Screen (NotDetected) U Methamphetamines Scrn (NotDetected) U Benzodiazepines Scrn (NotDetected) Urine Cocaine Screen (NotDetected) U Marijuana (THC) Screen (NotDetected) Serum Alcohol mg/dL Disposition Clinical Impression: Status epilepticus, Metastasis to brain, Bladder cancer, Ventilator dependence Disposition: OTHER INSTITUTION NOT DEFINED Condition: Critical Is patient prescribed a controlled substance at d/c from ED?: No Referrals: Bry Silverio DO [Primary Care Provider] - 1-2 days Time of Disposition: 18:52 - Out of Hospital Transfer - Req. Specs Out of Hospital Transfer - Requested Specifics: Other Emergency Center ([facility])
[2023-12-06 18:26] LABS: ALT 25 U/L (4-34); AST 25 U/L (14-36); African American GFR (CKD) >90 (>60 ml/min/1.73 sqM); Albumin 4.3 g/dL (3.5-5.0); Alcohol <10 mg/dL; Alkaline Phosphatase 91 U/L (38-126); Anion Gap 13 mmol/L; Blood Urea Nitrogen 20 mg/dL (7-17); Calcium 9.5 mg/dL (8.4-10.2); Carbon Dioxide 24 mmol/L (22-30); Chloride 103 mmol/L (98-107); Glucose 131 mg/dL (74-99); Magnesium 1.7 mg/dL (1.6-2.3); Non-African American GFR(CKD) >90 (>60 ml/min/1.73 sqM); Potassium 4.3 mmol/L (3.5-5.1); Sodium 140 mmol/L (137-145); Total Bilirubin 0.4 mg/dL (0.2-1.3); Total Protein 7.3 g/dL (6.3-8.2)
[2023-12-06 18:32] LABS: Basophils % (A) 0 %; Eosinophils # (A) 0.1 k/uL (0-0.7); Eosinophils % (A) 1 %; HCT 41.4 % (34.0-46.0); HGB 13.4 gm/dL (11.4-16.0); Lymphocytes # (A) 1.1 k/uL (1.0-4.8); Lymphocytes % (A) 15 %; MCH 33.1 pg (25.0-35.0); MCHC 32.4 g/dL (31.0-37.0); MCV 102.3 fL (80.0-100.0); Macrocytosis Slight; Mean Platelet Volume 7.8; Monocytes # (A) 0.5 k/uL (0-1.0); Monocytes % (A) 7 %; Neutrophils # (A) 5.3 k/uL (1.3-7.7); Neutrophils % (A) 75 %; Platelet Count 258 k/uL (150-450); RBC 4.04 m/uL (3.80-5.40); RDW 14.8 % (11.5-15.5); WBC 7.2 k/uL (3.8-10.6)
[2023-12-06 18:34] LABS: Appearance,Urine Clear (Clear); Bilirubin,Urine Negative (Negative); Blood,Urine Negative (Negative); Color,Urine Colorless; Glucose,Urine (UA) Negative (Negative); Ketones,Urine Negative (Negative); Leukocyte Esterase,Urine Negative (Negative); Nitrite,Urine Negative (Negative); Protein,Urine Negative (Negative); Specific Gravity,Urine 1.012 (1.001-1.035); Urobilinogen,Urine <2.0 mg/dL (<2.0)
[2023-12-06 18:52] LABS: Amphetamine Screen,Urine Not Detected (NotDetected); Barbiturate Screen,Urine Not Detected (NotDetected); Benzodiazepines Screen,Urine Not Detected (NotDetected); Cocaine Screen,Urine Not Detected (NotDetected); Methadone Screen, Urine Not Detected (NotDetected); Opiate Screen,Urine Not Detected (NotDetected); Oxycodone Screen, Urine Not Detected (NotDetected); Phencyclidine Screen,Urine Not Detected (NotDetected); Tricyclic Antidepressant,Urine Not Detected (NotDetected); Urn Cannabinoid Scrn Not Detected (NotDetected)
--- NOTE | 2023-12-06 19:06 | XR ---
EXAM: XR chest 1V portable CLINICAL INDICATION:Female, 68 years old with history of intubated; [facility] COMPARISON: None. TECHNIQUE: Chest single view. FINDINGS: Lines/tubes/devices: Right chest device is overlain by an EKG lead, appears to represent a chest port system with catheter tip terminating over the upper to mid SVC. ETT tip about 3.5 cm above the isabel a. NG tube is difficult to visualize distally but appears to extend into the left upper abdomen with the tip beyond the field of view. EKG leads and other extraneous densities over the chest. Cardiomediastinum: Cardiac silhouette appears moderately enlarged Unremarkable mediastinal silhouette. Vasculature: Mild pulmonary vascular congestion Lungs/pleura: Mild increased interstitial markings could represent edema. No consolidation, sizeable effusion, or visible pneumothorax. Bibasilar atelectasis. Tiny left pleura l effusion cannot be excluded. Bones/soft tissues: Bony thorax appears grossly intact as seen. Regional soft tissues appear unremarkable. IMPRESSION: 1. Cardiomegaly with findings suggesting mild CHF. 2. Right-sided chest port in place. No visible pneumothorax. 3. ET tube in good position. 4. NG tube not well seen, appears to extend into the left abdomen with the tip beyond the field-of-v iew.
[2023-12-06 19:18] LABS: ABG Base Excess 0.9 mmol/L; ABG HCO3 27 mmol/L (21-25); ABG PCO2 51 mmHg (35-45); ABG PH 7.33 (7.35-7.45); ABG PO2 397 mmHg (83-108); ABG TCO2 28 mmol/L (19-24); Allen Test Performed? Yes
--- NOTE | 2023-12-06 19:38 | CT ---
EXAMINATION TYPE: CT angio head neck DATE OF EXAM: 12/06/2023 6:10 PM COMPARISON: Same day noncontrast CT head. CLINICAL INDICATION:Female, 68 years old with history of seizure; [facility], seizure TECHNIQUE: Axially acquired helical CT angiogram of the head and neck was obtained with contrast. Mul tiplanar reformats were generated. 3-D reconstructions are not obtained/submitted, limiting interpret ation. NASCET criteria used. Contrast used: 65ml mL of Isovue 370 with IV Contrast, Oral contrast used: None. CT DLP: 995.4 mGycm, Automated exposure control for dose reduction was used. FINDINGS: CTA Neck: A 3 vessel aortic arch is shown. Mild/moderate atherosclerotic plaque along the aortic arch in branc h vessels without significant stenosis seen. Right carotid system: The common carotid is patent. Carotid shows an early bifurcation low in the nec k with calcific plaque in the proximal ECA and ICA without significant stenosis seen. ICAs tortuous t aking a retropharyngeal course. Patent to the base of the neck. Left carotid system: The common carotid is patent. Carotid bifurcation and ICA show no significant st enosis or atherosclerosis. ICA takes a retropharyngeal course. Patent to the skull base. Vertebral arteries: There is no significant atherosclerotic plaque at the origins of the vertebral ar teries. The vertebrals then otherwise appear patent to the skull base. Essentially codominant. Other: Visualized neck soft tissues show no concerning abnormality. Cervical spine shows moderate to severe degenerative changes, greatest in the inferior cervical spine and there is reversal of the nor mal lordosis from C4 to C7, as well as grade 1 anterolisthesis C3 on C4. Disc marginal osteophytes an d facet arthropathy results in moderate neural foraminal stenoses at each level from C3-C4 through C6 -C7. Mild/moderate spinal canal stenosis. Imaged portions of the lung apices show no acute finding. CTA Head: There are mild calcifications of the cavernous portions of the ICAs without significant stenosis. Supraclinoid ICAs, bifurcations, ACAs, MCAs appear normally patent. Anterior communicating artery is not definitely seen. The intracranial vertebral arteries enhance normally. Basilar artery is patent and unremarkable. Norm al basilar bifurcation without evidence of aneurysm. Visualized proximal contact worker are patent. A right posterior communicating artery is not definitely seen. There may be a small left posterior communicating artery. No intracranial large vessel occlusion, hemodynamically significant stenosis, aneurysm, dissection, o r arteriovenous malformation is shown. The dural venous sinuses appear grossly patent without evidence of thrombosis. Other: Brain findings are not significantly different from the previous unenhanced CT; again a contr ast MRI would be the study of choice to evaluate for metastases.. IMPRESSION: CTA neck: 1. No dissection, hemodynamically significant stenosis, or pseudoaneurysm detected in the carotid or vertebral arteries in the neck. CTA head: 1. No intracranial large vessel occlusion, significant stenosis, or sizable aneurysm detected in the limits of CTA. 2. Brain findings are not significantly different from the previous unenhanced CT; again a contrast MRI would be the study of choice to evaluate for metastases.
[2023-12-06 21:14] VITALS: BP 130/76; PULSE 77; RESP 16
== END 2023-12-06 20:49 | disposition other institution (70) ==
LOC: EC 17:04
DX: G40.901 Epilepsy, unspecified, not intractable, with status epilepticus (principal); C67.9 Malignant neoplasm of bladder, unspecified; C79.31 Secondary malignant neoplasm of brain; E87.20 Acidosis, unspecified; R00.0 Tachycardia, unspecified; Z99.11 Dependence on respirator [ventilator] status; Z88.1 Allergy status to other antibiotic agents; Z88.5 Allergy status to narcotic agent; Z91.030 Bee allergy status; Z91.038 Other insect allergy status; Z87.891 Personal history of nicotine dependence
CPT/HCPCS: 99291; 31500; 96374; 96361; 96372; 36415; 36600; 94002; 93005; 80053; 84443; 82805; 83605; 83735; 85025; 81003; 80306; 71045; 70496; 70450; 70498; G0480; J2060; J1100; J2250; J2704; Q9967; 80320

== ENCOUNTER → 2023-12-06 | Outpatient (CLI) | payer MEDICARE, OTHER ==
[2023-12-06 12:17] VITALS: BP 145/80; PULSE 64; RESP 16; TEMP 97.8
--- NOTE | 2023-12-06 12:34 | P.PN ---
Subjective DATE: 12/06/2023 FOLLOW UP VISIT. Patient with obstructive sleep apnea hypopnea syndrome return to sleep center for follow-up visit. Information from previous visit have been reviewed. Patient is using PAP equipment every night for the whole night, getting PAP supplies in time. The patient does not have significant problems with the mask, PAP unit and humidification. [place] sleepiness scale is increased to 12. I checked information from PAP unit. PAP unit pressure 11 cm H2O. Usage is 100% for more then 4 hours, average 6.8 hours per night. Leak is 18 l/m, which is in acceptable range. Apnea Hypopnea Index is 0.6, which is normal. MEDICATIONS:1. Furosemide 40 mg once a day 2. Loratidine 10 mg once a day 3. Metformin 500 mg twice a day 4. Nifedipine 90 mg once a day 5. Losartan 100 mg once a day 6. Propranolol 120 mg once a day 7. Hydrochlorothiazide 25 mg once a day During physical exam: GENERAL: A pleasant patient without any distress, using wheelchair. VITAL SIGNS: Please see below. HEENT: PERRLA, EOMI.low position of soft palate, Mallapati 3 . NECK: Supple. No JVD. LUNGS: Clear to percussion and to auscultation. Good air exchange. No wheezing or rhonchi. HEART: S1, S2 regular. ABDOMEN: Soft and nontender. Obese EXTREMITIES: No clubbing or cyanosis. APPRAISER ART: Awake, alert, and oriented x3. No focal deficit. Impressions: 1. Obstructive sleep apnea-hypopnea syndrome. Patient demonstrated great compliance with treatment, benefiting from treatment. 2. Hypertension. 3. Diabetes mellitus. 4. Rheumatoid arthritis. 5. Back problems. 6. Obesity. 7. Status post bilateral mastectomy for cancer. 8. Status post laser treatment for bladder cancer. 9. Status post bilateral knee replacement. 10. Status post cholecystectomy. Plan: 1. Continue using PAP equipment every night for the whole night. 2. To change air filter at least 1-2 times per month. 3. PAP unit should stay lower then position of the head. 4. Advised patient to remove all remaining water from humidifier canister daily and make it dry after each usage. Refill canister with fresh distilled water before each usage. 5. Sleep hygiene with regular time in bed for at least 8 hours. 6. Precautions related to driving. No driving if feel any sleepiness. 7. I will maintain prescription for PAP supplies including mask, tube, filters. 8. Follow up visit in 6 months or earlier if patient has any problems. 9. Watching and losing weight. Thank you very much for allowing me to participate in the management of your patient. Javid Miguel MD, PhD, FAASM. Diplomat of [place] [employer], Sleep Medicine Board by [place] [employer] Business Administration Professor of [facility] [place] Objective - Vital Signs Vital signs: Vital Signs Temp 97.8 F 12/06/23 12:09 Pulse 64 12/06/23 12:09 Resp 16 12/06/23 12:09 BP 145/80 12/06/23 12:09 Pulse Ox 96 12/06/23 12:09 FiO2 Intake & Output 12/05/23 12/06/23 12/06/23 18:59 06:59 18:59 Weight 132.903 kg
== END ==
LOC: 3 N SLEEP 11:33
PROVIDERS: ATTEND Internal Medicine
DX: G47.33 Obstructive sleep apnea (adult) (pediatric) (principal); I10 Essential (primary) hypertension; E11.9 Type 2 diabetes mellitus without complications; M06.9 Rheumatoid arthritis, unspecified; E66.9 Obesity, unspecified; M51.9 Unspecified thoracic, thoracolumbar and lumbosacral intervertebral disc disorder; M54.9 Dorsalgia, unspecified; Z90.13 Acquired absence of bilateral breasts and nipples; Z90.49 Acquired absence of other specified parts of digestive tract; Z96.653 Presence of artificial knee joint, bilateral; Z85.51 Personal history of malignant neoplasm of bladder; Z79.84 Long term (current) use of oral hypoglycemic drugs; Z79.899 Other long term (current) drug therapy; Z99.89 Dependence on other enabling machines and devices; Z88.1 Allergy status to other antibiotic agents; Z88.5 Allergy status to narcotic agent; Z91.030 Bee allergy status; Z91.038 Other insect allergy status; Z87.891 Personal history of nicotine dependence; Z68.42 Body mass index [BMI] 45.0-49.9, adult
CPT/HCPCS: 99212

== ENCOUNTER 2024-01-10 11:04 | Day surgery (SDC) | payer MEDICARE, BC ==
[2024-01-10 12:03] LABS: Glucose,Whole Blood 117 mg/dL (70-110)
[2024-01-10 12:10] VITALS: BP 172/74; PULSE 77; RESP 16; TEMP 99
--- NOTE | 2024-01-10 14:09 | IR ---
EXAMINATION TYPE: IR cva device check w fluoro Intraoperative/procedural fluoroscopic services were p rovided. CLINICAL INDICATION:Female, 68 years old with history of Port not flushing, 0.2m/0.389DAP, Rt upper c hest port/not ac; , [facility] Total fluoroscopy time is 0.2 min. DAP: 0.389 Gycm2 Please see the operative/procedural note for further details.
--- NOTE | 2024-01-10 16:27 | P.OP ---
Date of Procedure: 01/10/24 Description of Procedure: Date of Procedure: Preoperative Diagnosis: Malfunctioning port Postoperative Diagnosis: Same. Procedure(s) Performed: Fluoroscopic interpretation of port imaging Anesthesia: None Surgeon: Getachew Estimated Blood Loss (ml): None IV fluids (ml): 0 Urine output (ml): 0 Pathology: none sent Condition: stable Disposition: no change Indications for Procedure: Patient is a 68-year-old female with a chest wall port utilized for chemotherapy. She has had issues with its function and presents here today for evaluation Description of Procedure: Patient was brought to the special procedure suite. The chest wall was prepped and draped in usual manner and initial radiographic images were obtained. There was significant tortuosity of the port itself without clean follow through the vasculature into the superior vena cava. Unable to determine positioning but per imaging likely in the innominate versus proximal superior vena cava. due to the appearance of this no portogram was attempted. Recommend follow-up with placing surgeon for potential repositioning versus new access
== END 2024-01-10 14:27 | disposition home or self-care (01) ==
LOC: CATHCVL 11:04
PROVIDERS: ATTEND Surgery
DX: T85.618A Breakdown (mechanical) of other specified internal prosthetic devices, implants and grafts, initial encounter (principal)
CPT/HCPCS: 36598

== ENCOUNTER → 2024-02-11 | Outpatient (CLI) | payer MEDICARE, BC ==
[2024-02-11 13:17] LABS: African American GFR (CKD) >90 (>60 ml/min/1.73 sqM); Blood Urea Nitrogen 24 mg/dL (7-17); Non-African American GFR(CKD) >90 (>60 ml/min/1.73 sqM)
--- NOTE | 2024-02-11 14:11 | CT ---
EXAMINATION TYPE: CT ChestAbdPelvis w con DATE OF EXAM: 02/11/2024 COMPARISON: 11/02/2023 HISTORY: f/u bladder, breast, brain ca CT DLP: 2613.5 mGycm CONTRAST: CT scan of the chest, abdomen and pelvis is performed with Oral Contrast and with IV Contrast, patien t injected with 100 mL of Isovue 300. CT Chest: LUNGS: The lungs are clear and free of infiltrate or atelectasis. Groundglass nodular density right u pper lobe is unchanged and measures 9.3 mm versus 11 mm previously. No additional nodules present at this time. No pleural effusion or CT evidence of interstitial lung disease. MEDIASTINUM: Thoracic aorta is of normal caliber. The heart is not enlarged. No evidence for media stinal mass or adenopathy. HILAR STRUCTURES: No evidence for mass. No hilar adenopathy is appreciated. OTHER: No significant abnormality. CONTRAST CT ABDOMEN AND PELVIS FINDINGS: LIVER/GB: No calcified gallstones. No space occupying hepatic lesion. Biliary tree is of normal ca liber. PANCREAS: No inflammation. No distinct mass. SPLEEN: No splenic enlargement. No lesion seen. ADRENALS: Stable nodularity of the bilateral adrenal glands. No thickening. KIDNEYS/BLADDER: No hydronephrosis. No nephrolithiasis. No disctinct renal mass. BOWEL: Normal appendix. Normal bowel caliber. No inflammation. GENITAL ORGANS: Lobulated and partially calcified masses of the uterus likely reflect leiomyomatous c hange. LYMPH NODES: No greater than 1cm abdominal or pelvic lymph nodes are appreciated. AORTA: No significant abnormality. OSSEOUS STRUCTURES: Scattered osseous sclerosis may reflect degenerative change however metastatic di sease is not excluded. Overall stable appearance. OTHER: No significant additional abnormality is seen. IMPRESSION: 1. Essentially stable groundglass nodular density right upper lobe. 2. Stable adrenal glandular nodularity. 3. Stable emphysematous changes in the uterus. 4. Stable areas of sclerosis lower lumbar spine and T10 likely degenerative in nature although metast atic disease is not excluded.
== END | disposition home or self-care (01) ==
LOC: RADCTMAIN 11:56
PROVIDERS: ATTEND Internal Medicine Hematology & Oncology
DX: C67.9 Malignant neoplasm of bladder, unspecified (principal); R91.1 Solitary pulmonary nodule; C79.51 Secondary malignant neoplasm of bone; D09.0 Carcinoma in situ of bladder; D05.12 Intraductal carcinoma in situ of left breast
CPT/HCPCS: 82565; 84520; 71260; 74177; 36415; Q9967

== ENCOUNTER → 2024-03-03 | Outpatient (CLI) | payer MEDICARE, BC ==
--- NOTE | 2024-03-17 06:01 | MR ---
EXAMINATION TYPE: MR brain wo/w con DATE OF EXAM: 03/03/2024 COMPARISON: 02/10/2019, 12/06/2023 CT brain HISTORY: Follow-up secondary malignant neoplasm of brain. CONTRAST: Performed utilizing 12.5 mL intravenous Gadavist gadolinium contrast. TECHNIQUE: Multiplanar, multiecho imaging on a 3.0 Naomi magnet is performed through the brain. Stud y is performed within 24 hours of arrival to the hospital. The craniovertebral junction is normal. The pituitary is normal. Diffusion-weighted imaging is performed. No abnormal hyperintensity is present to suggest an acute i ntracranial infarct or acute ischemic change. There are multiple scattered punctate hypointensities which have some blooming effect better apprecia ajay on the T1-weighted imaging. On postcontrast imaging there are multiple scattered areas of enhance ment. Findings are suspicious for multiple metastatic lesions. This would include a 0.6 cm area withi n the right cerebellum, a 1.2 cm right parietal occipital extra-axial space, air series 801 image 130 , a 0.4 cm area right occipital lobe near the vertex. Image 122. Punctate area left parietal lobe. In 202. Punctate area right frontal lobe white matter. Image 114. Small area of enhancement is along t he posterior lateral left occipital lobe measuring 0.7 cm, image 109. Visualized lesions are more ext ensive on gradient imaging. Ventricles and sulci are appropriate for the patient age. IMPRESSION: 1. Extensive scattered bilateral punctate lesions with blooming effect both above and below the tento rium. 2. Vasogenic edema appears diminished from the CT of November 2023.
== END | disposition home or self-care (01) ==
LOC: RADMRIMAIN 13:48
PROVIDERS: ATTEND Radiology Radiation Oncology
DX: C77.5 Secondary and unspecified malignant neoplasm of intrapelvic lymph nodes (principal); C79.31 Secondary malignant neoplasm of brain; C67.0 Malignant neoplasm of trigone of bladder; L98.9 Disorder of the skin and subcutaneous tissue, unspecified; G93.6 Cerebral edema
CPT/HCPCS: 70553; A9585

== ENCOUNTER → 2024-05-12 | Outpatient (CLI) | payer MEDICARE, BC ==
[2024-05-12 11:37] LABS: African American GFR (CKD) 63 (>60 ml/min/1.73 sqM); Blood Urea Nitrogen 20 mg/dL (7-17); Non-African American GFR(CKD) 55 (>60 ml/min/1.73 sqM)
--- NOTE | 2024-05-12 15:07 | CT ---
EXAMINATION TYPE: CT ChestAbdPelvis w con DATE OF EXAM: 05/12/2024 COMPARISON: 02/11/2024 and 11/02/2023 HISTORY: 69-year-old female C67.9, f/u bladder cancer and breast cancer TECHNIQUE: Contiguous axial scanning of the chest, abdomen, and pelvis performed with IV Contrast, pa tient injected with 150 mL of Isovue 300. Delayed images through the kidneys were obtained. Coronal/s agittal reconstructions performed. CT DLP: 2565.6 mGycm Automated exposure control for dose reduction was used. FINDINGS: Chest: Right anterior chest wall injection port with catheter tip at the brachiocephalic vein confluence. Heart normal size without pericardial effusion. Mild three-vessel coronary artery calcifications are present. Mild atherosclerotic arch calcifications with conventional arch vessel branching anatomy. No thoracic lymphadenopathy by CT size criteria. Mild strandy atelectasis in the lower lungs. Mild diffuse bronchial wall thickening and minimal emphy sematous change. A 1.1 cm groundglass focus lateral right upper lobe remains unchanged back to at least 11/14/2023. No consolidation or pleural effusion. ABDOMEN: There may be some underlying fatty infiltration of the liver. Cholecystectomy clips. Portal venous sy stem is patent. Extensive nodularity throughout the left adrenal gland measuring up to 2.2 cm remains unchanged. Right adrenal gland, kidneys, and pancreas within normal limits. Spleen is borderline enlarged at 13.7 cm with small anterior splenule. No dilated small bowel, free fluid, or free air. Previous retroperitoneal preaortic lymph node at the level of the kidneys measures 1.4 cm versus 1.9 cm, previously. No new or progressive mesenteric or retroperitoneal adenopathy is seen. Normal appendix. Mild scattered stool. No pericolonic inflammatory change. Mild to moderate prostatic calcifications infrarenal abdominal aorta and iliac arteries. Pelvis: Bladder partially distended. Uterus anteverted with bulky fibroid change. Individual fibroids measure up to 4.7 cm. Both ovaries are visualized. Left-sided pelvic malleolus. No abnormal fluid collection in the pelvis. Left external iliac chain lymph node measures 1.1 cm versus 1.5 cm, previously. Right external iliac chain lymph node measures 6 mm versus 1.1 cm, previously. No progressive pelvic lymph adenopathy. Bones: Moderate degenerative change at the hips. Advanced spondylotic change throughout the lumbar spine. Ve rtebral body sclerosis here probably on a degenerative basis and unchanged. Additional moderate to ad vanced degenerative disc disease lower thoracic spine and visualized cervical spine. Sclerotic focus within the T10 vertebral body anteriorly remains unchanged back to 11/02/2023. No osseo us destructive process seen. A sclerotic area along the proximal left humeral shaft is now included in the [id number]. IMPRESSION: 1. THE SINGLE RETROPERITONEAL NODE HAS DECREASED IN SIZE NOW 1.4 CM VERSUS 1.9 CM, PREVIOUSLY. BILATE RAL EXTERNAL ILIAC CHAIN LYMPH NODES HAVE ALSO DECREASED IN SIZE NOW 1.1 CM VERSUS 1.5 CM, PREVIOUSLY . FINDINGS SUGGEST ONGOING TREATMENT RESPONSE. NO NEW DISEASE IS IDENTIFIED. 2. ANTERIOR T10 VERTEBRAL BODY SCLEROSIS IS UNCHANGED. SCLEROTIC LESION PROXIMAL LEFT HUMERAL SHAFT I S NOW INCLUDED IN THE [id number]. SUSPECT SITES OF PREVIOUS OSSEOUS METASTATIC DISEASE. SCLEROSIS IN THE MID AND LOWER LUMBAR SPINE PROBABLY ON A DEGENERATIVE BASIS. 3. 1.1 CM GROUNDGLASS FOCUS RIGHT UPPER LOBE IS STABLE IS NODULARITY OF THE LEFT ADRENAL GLAND LES SURING UP TO 2.2 CM. 4. REDEMONSTRATED BULKY FIBROID UTERUS. [facility], , 05/12/2024 3:04 PM
== END | disposition home or self-care (01) ==
LOC: RADCTMAIN 10:56
PROVIDERS: ATTEND Internal Medicine Hematology & Oncology
DX: C67.9 Malignant neoplasm of bladder, unspecified
CPT/HCPCS: 36415; 71260; 74177; 82565; 84520

== ENCOUNTER → 2024-06-04 | Outpatient (CLI) | payer MEDICARE, BC ==
--- NOTE | 2024-06-04 14:35 | MR ---
EXAMINATION TYPE: MR brain wo/w con DATE OF EXAM: 06/04/2024 12:41 PM COMPARISON: 03/03/2024 HISTORY: Brain Ca, Neoplasm of lymph nodes CONTRAST: Patient received 12 mL intravenous Gadavist gadolinium contrast. Multiplanar and multispin-echo imaging of the brain was performed . Pre and post contrast enhanced i mages are obtained. The ventricles, basal cisterns and sulci overlying the cerebral convexities are mildly enlarged. There is evidence of mild periventricular white matter ischemic demyelination. Remote deep white matter insults are also noted. No acute edema is seen on diffusion weighted imaging. There is no evidence for midline shift or mass effect. Acute intracranial hemorrhage or extra-axial collection is not evident. Resolution of previously noted enhancing lesions scattered within the supra and infratentorial region s. At the site of prior focal enhancement though there are areas of decreased signal intensity noted. No new Enhancing lesions are seen. The paranasal sinuses and mastoid air cells are well-aerated. IMPRESSION: 1. Age-related atrophic and chronic small vessel ischemic change. No acute intracranial process at this time. 2. No new enhancing lesions are seen. 3.Resolution of previously noted enhancing lesions scattered within the supra and infratentorial nina ons. At the site of prior focal enhancement though there are areas of decreased signal intensity note d. [facility], , 06/04/2024 2:33 PM
== END | disposition home or self-care (01) ==
LOC: RADMRIMAIN 11:27
PROVIDERS: ATTEND Radiology Radiation Oncology
DX: C79.31 Secondary malignant neoplasm of brain (principal); C77.5 Secondary and unspecified malignant neoplasm of intrapelvic lymph nodes; C67.0 Malignant neoplasm of trigone of bladder; I67.82 Cerebral ischemia
CPT/HCPCS: 70553

== ENCOUNTER 2024-07-17 10:13 | Inpatient (IN) | payer MEDICARE, OTHER ==
--- NOTE | 2024-07-17 11:25 | ED ---
Fall HPI - General Chief Complaint: Fall Stated Complaint: back pain Time Seen by Provider: 07/17/24 10:32 Source: patient, family, RN notes reviewed Mode of arrival: EMS - History of Present Illness Initial Comments: This is a 61-year-old female with uterine metastatic disease presenting to the emergency department with fall and subsequent right-sided back pain that occurred yesterday after she was using the bathroom. Patient states that she had a sharp pain in her back which caused her to sit onto the floor after using the restroom. Patient denies hitting her head or loss consciousness. She denies loss of bladder or bowel continence or saddle seizures. Denies previous surgeries of her back. Patient is currently receiving chemotherapy once every 3 weeks with a bi- week. Has taken [place] and Vicodin at home with relief. - Related Data Home Medications Medication Instructions Recorded Confirmed Aspirin EC [Ecotrin Low Dose] 81 mg PO QAM 02/16/21 07/17/24 Losartan Potassium 100 mg PO QAM 02/16/21 07/17/24 Magnesium Oxide [Mag-Ox] 400 mg PO BID 03/28/23 07/17/24 carvediloL [Coreg] 6.25 mg PO BID 01/09/24 07/17/24 hydroCHLOROthiazide 25 mg PO QAM 01/09/24 07/17/24 levETIRAcetam [Keppra] 500 mg PO BID 01/09/24 07/17/24 Biotin [Biotin Disolve] 10,000 mcg PO DAILY 07/17/24 07/17/24 Diphenoxylate HCl/Atropine 1 tab PO TID PRN 07/17/24 07/17/24 [Lomotil 2.5-0.025 mg Tablet] Insulin Aspart [NovoLOG] 11 units SQ AC-TID 07/17/24 07/17/24 Insulin Glargine,Hum.rec.anlog 24 unit SQ DAILY 07/17/24 07/17/24 [Basaglar Kwikpen U-100] Latanoprost [Latanoprost 0.005%] 1 drop BOTH EYES HS 07/17/24 07/17/24 Padcev 90 mg IV DIRECTED 07/17/24 07/17/24 Potassium Chloride [Klor-Con M10] 10 meq PO BID 07/17/24 07/17/24 Pravastatin Sodium [Pravachol] 20 mg PO HS 07/17/24 07/17/24 Super B Complex 1 tab PO DAILY 07/17/24 07/17/24 Allergies Allergy/AdvReac Type Severity Reaction Status Date / Time clindamycin Allergy Severe Chest Pain Verified 07/17/24 14:41 ciprofloxacin [From Cipro] Allergy Unknown Verified 07/17/24 14:41 insect venom Allergy Swelling Verified 07/17/24 14:41 venom-honey bee Allergy Swelling Verified 07/17/24 14:41 [bee venom (honey bee)] morphine AdvReac Itching/Ezequiel Verified 07/17/24 14:41 lucinations Review of Systems ROS Statement: Those systems with pertinent positive or pertinent negative responses have been documented in the HPI. ROS Other: All systems not noted in ROS Statement are negative. Past Medical History Past Medical History: Cancer, Heart Failure, Diabetes Mellitus, Hypertension, Neurologic Disorder, Osteoarthritis (OA), Seizure Disorder, Sleep Apnea/CPAP/BIPAP, Thyroid Disorder, Vascular Disorder Additional Past Medical History / Comment(s): CT scan lung, "showed 3 vessel calcification, had stress test and BP dropped", cellulitis multiple times, bilateral leg swelling, back pain, "Ivan facial spasm" last seizure 12/06/23, Hx left breast cancer 2015. Hx bladder cancer 2016 and with metastasis/bones and brain/radiation to brain/last chemo 09/2023, SIRS 2012, CPAP use, circulation issues, DDD, scoliosis, joint problems, goiter and low thyroid in teens but ok now. History of Any Multi-Drug Resistant Organisms: None Reported Past Surgical History: Bladder Surgery, Breast Surgery, Cholecystectomy, Joint Replacement, Orthopedic Surgery, Tonsillectomy Additional Past Surgical History / Comment(s): Carpal tunnel release and cyst removal on the right wrist, steroid injection right wrist, open surgery on the left knee, followed by open reconstructive surgery, right knee arthroscopy for medial meniscus tear, bilateral knee replacements, lumbar epidural steroid injec tions X2, botox injections for seizures, left mastectomy and lymph node removal, vein procedure to left leg, colonoscopy with polyps removed. Past Anesthesia/Blood Transfusion Reactions: Previous Problems w/ Anesthesia, Family History of Problems w/ Anesthesia Additional Past Anesthesia/Blood Transfusion Reaction / Comment(s): Patient states when she had her wrist surgery done she felt the initial incision. States during dental work the anesthetics given make her heart feel fluttery. Son has trouble waking up. Past Psychological History: Anxiety Smoking Status: Former smoker - Past Family History Father Family Medical History: Coronary Artery Disease (CAD) Additional Family Medical History / Comment(s): Father had heart disease/valves r/t having rheumatic fever as a child. Mother Family Medical History: Musculoskeletal Disorder, Neurologic Disorder Additional Family Medical History / Comment(s): Multiple Sclerosis. General Exam Limitations: no limitations General appearance: alert, in no apparent distress Eye exam: Present: normal appearance, PERRL, EOMI. Absent: scleral icterus, conjunctival injection, periorbital swelling ENT exam: Present: normal exam, mucous membranes moist Neck exam: Present: normal inspection. Absent: tenderness, meningismus, lymphadenopathy Respiratory exam: Present: normal lung sounds bilaterally. Absent: respiratory distress, wheezes, rales, rhonchi, stridor Cardiovascular Exam: Present: regular rate, normal rhythm, normal heart sounds. Absent: systolic murmur, diastolic murmur, rubs, gallop, clicks GI/Abdominal exam: Present: soft, normal bowel sounds. Absent: distended, tenderness, guarding, rebound, rigid Extremities exam: Present: normal inspection, full ROM, normal capillary refill. Absent: tenderness, pedal edema, joint swelling, calf tenderness Back exam: Present: normal inspection, tenderness (lumbar spine) Neurological exam: Present: alert, oriented X3, CN II-XII intact Skin exam: Present: warm, dry, intact, normal color. Absent: rash Course Vital Signs 07/17/24 07/17/24 10:35 19:05 Temperature 98.1 F Pulse Rate 69 88 Respiratory 20 18 Rate Blood Pressure 99/53 102/63 O2 Sat by Pulse 97 98 Oximetry Medical Decision Making - Medical Decision Making Was pt. sent in by a medical professional or institution (, PA, LEARNING SUPPORT AIDE, urgent care, hospital, or detention...) When possible be specific @ -No Did you speak to anyone other than the patient for history (EMS, parent, family, police, friend...)? What history was obtained from this source @ -No Did you review nursing and triage notes (agree or disagree)? Why? @ -I reviewed and agree with nursing and triage notes Were old charts reviewed (outside hosp., previous admission, EMS record, old E KG, old radiological studies, urgent care reports/EKG's, detention records)? Report findings @ -No old charts were reviewed Differential Diagnosis (chest pain, altered mental status, abdominal pain women, abdominal pain men, vaginal bleeding, weakness, fever, dyspnea, syncope, headache, dizziness, GI bleed, back pain, seizure, CVA, palpatations, mental health, musculoskeletal)? @ -Differential Weakness: Hypoglycemia, shock, sepsis, hyponatremia, anemia, infection, ND, ETOH, adverse medicine reaction, overdose, stroke, this is not meant to be an all-inclusive list. EKG interpreted by me (3pts min.). @ -EKG completed at 1334 sinus rhythm with a ventricular rate of 77, GA interval 190, QRS 99, QTc 412. X-rays interpreted by me (1pt min.). @ -None done CT interpreted by me (1pt min.). @ -CT scan of the lumbar spine reveals no fracture or malalignment with marked degenerative disc disease of L2-S1 with mild to moderate spinal stenosis with bilateral bony foraminal encroachment U/S interpreted by me (1pt. min.). @ -None done What testing was considered but not performed or refused? (CT, X-rays, U/S, labs)? Why? @ -None What meds were considered but not given or refused? Why? @ -None Did you discuss the management of the patient with other professionals (professionals i.e. , PA, LEARNING SUPPORT AIDE, lab, RT, psych nurse, manager social services, hull builder, teacher, special service officer, case packer)? Give summary @ -No Was smoking cessation discussed for >3mins.? @ -No Was critical care preformed (if so, how long)? @ -No Were there social determinants of health that impacted care today? How? (Homelessness, low income, unemployed, alcoholism, drug addiction, tra nsportation, low edu. Level, literacy, decrease access to med. care, alf, rehab)? @ -No Was there de-escalation of care discussed even if they declined (Discuss DNR or withdrawal of care, Hospice)? DNR status @ -No What co-morbidities impacted this encounter? (DM, HTN, Smoking, COPD, CAD, Cancer, CVA, ARF, Chemo, Hep., AIDS, mental health diagnosis, sleep apnea, morbid obesity)? @ -Static cancer Was patient admitted / discharged? Hospital course, mention meds given and route, prescriptions, significant lab abnormalities, going to OR and other pertinent info. @ -admitted. 69-year-old female with a fall and back pain. On evaluation patient noted tenderness to the lumbar spine. No red flag symptoms concerning for cauda equina syndrome such as loss of bladder or bowel continence or saddle anesthesias. Patient does have weakness globally with no acute neurological deficits. Patient CT of the lumbar spine no acute process. Patient was attempted to ambulate with nursing staff however was unsuccessful and had difficulty standing from the bed. But at bedside states that over the past day patient has had severe difficulty with ambulation is concerned that he is unable to take care for patient is unable to care for self as well. lab studies reveal an elevated BUN of 30 and creatinine of 2.0 consistent with a [place], urinalysis consistent with infection. Patient will be admitted to internal medicine with physical therapy and Occupational Therapy on consult for further evaluation of weakness and possible rehabilitation placement. Discussed with Dr. Rubi Undiagnosed new problem with uncertain prognosis? @ -No Drug Therapy requiring intensive monitoring for toxicity (Heparin, Nitro, Insulin, Cardizem)? @ -No Were any procedures done? @ -No Diagnosis/symptom? @ -Weakness, fall, metastatic disease Acute, or Chronic, or Acute on Chronic? @ -Acute Uncomplicated (without systemic symptoms) or Complicated (systemic symptoms)? @ -Complicated Side effects of treatment? @ -No Exacerbation, Progression, or Severe Exacerbation? @ -No Poses a threat to life or bodily function? How? (Chest pain, USA, ND, pneumonia, PE, COPD, DKA, ARF, appy, cholecystitis, CVA, Diverticulitis, Homicidal, Suicidal, threat to staff... and all critical care pts) @ -No - Lab Data Result diagrams: 07/17/24 13:31 07/17/24 14:14 Lab Results 07/17/24 07/17/24 07/17/24 Range/Units 13:31 14:14 16:52 WBC 4.6 (3.8-10.6) k/uL RBC 3.52 L (3.80-5.40) m/uL Hgb 11.9 (11.4-16.0) gm/dL Hct 36.3 (34.0-46.0) % MCV 103.3 H (80.0-100.0) fL MCH 33.8 (25.0-35.0) pg MCHC 32.7 (31.0-37.0) g/dL RDW 18.8 H (11.5-15.5) % Plt Count 289 (150-450) k/uL MPV 7.8 Neutrophils % 49 % Lymphocytes % 30 % Monocytes % 15 % Eosinophils % 1 % Basophils % 1 % Neutrophils # 2.3 (1.3-7.7) k/uL Lymphocytes # 1.4 (1.0-4.8) k/uL Monocytes # 0.7 (0-1.0) k/uL Eosinophils # 0.1 (0-0.7) k/uL Basophils # 0.0 (0-0.2) k/uL Anisocytosis Slight Macrocytosis Moderate Sodium 136 L (137-145) mmol/L Potassium 5.2 H (3.5-5.1) mmol/L Chloride 104 (98-107) mmol/L Carbon Dioxide 25 (22-30) mmol/L Anion Gap 7 mmol/L BUN 43 H (7-17) mg/dL Creatinine 2.00 H (0.52-1.04) mg/dL Est GFR (CKD-EPI)AfAm 29 (>60 ml/min/1.73 sqM) Est GFR (CKD-EPI)NonAf 25 (>60 ml/min/1.73 sqM) Glucose 122 H (74-99) mg/dL Calcium 9.8 (8.4-10.2) mg/dL Magnesium 2.0 (1.6-2.3) mg/dL Total Bilirubin 0.9 (0.2-1.3) mg/dL AST 52 H (14-36) U/L ALT 42 H (4-34) U/L Alkaline Phosphatase 93 (38-126) U/L Total Protein 6.4 (6.3-8.2) g/dL Albumin 3.8 (3.5-5.0) g/dL Urine Color Yellow Urine Appearance Cloudy H (Clear) Urine pH 6.0 (5.0-8.0) Ur Specific Jackson 1.018 (1.001-1.035) Urine Protein Trace H (Negative) Urine Glucose (UA) Negative (Negative) Urine Ketones Negative (Negative) Urine Blood Negative (Negative) Urine Nitrite Negative (Negative) Urine Bilirubin Negative (Negative) Urine Urobilinogen <2.0 (<2.0) mg/dL Ur Leukocyte Esterase Large H (Negative) Urine RBC 10 H (0-5) /hpf Urine WBC 53 H (0-5) /hpf Ur Squamous Epith Cells 6 H (0-4) /hpf Urine Bacteria Occasional H (None) /hpf Hyaline Casts 28 H (0-2) /lpf Urine Mucus Rare H (None) /hpf Disposition Clinical Impression: Fall, Weakness Disposition: ADMITTED IP TO THIS [facility] Condition: Stable Referrals: Bry Silverio DO [Primary Care Provider] - 1-2 days Decision to Admit Reason: Admit from EC Decision Date: 07/17/24 Decision Time: 18:10
--- NOTE | 2024-07-17 12:29 | CT ---
EXAMINATION TYPE: CT lumbar spine wo con DATE OF EXAM: 07/17/2024 12:17 PM COMPARISON: None CLINICAL INDICATION: Female, 69 years old with history of fall, pain, hx metastatic disease; PHH, Fal l, pain, history of metastatic disease TECHNIQUE: Unenhanced CT of the lumbar spine was performed. Bone and soft tissue window settings are submitted as well as coronal and sagittal reconstructions. CT DLP: 1376.[address] CTDI: mGy Automated exposure control for dose reduction was used. FINDINGS: The lumbar vertebral segments are normal in height and alignment and there is no acute fracture or fong bluxation. There is marked disc space narrowing, vacuum phenomenon, spondylosis and vacuum phenomena at the elbo w to 3, L3-4, L4-5 and L5-S1 levels indicating severe degenerative disc disease. There is there is moderate facet arthropathy throughout the lumbar spine. There are no large lumbar disc herniations. Secondary to circumferential disc bulge, facet hypertrophy and thickening of ligamentum flavum, there is a mild to moderate spinal stenosis at the L2-3 and L3-4 levels. There is moderate bony neural foraminal encroachment at the L2-3, L3-4 and L5-S1 levels on the right and at the L3-4, and L4-5 levels on the left. There is severe bony encroachment at the L5-S1 level on the left. IMPRESSION: 1. No lumbar spine fracture or malalignment. 2. Marked degenerative disc disease from L2 through S1. 3. Mild to moderate spinal stenosis at the L2-3 and L3-4 levels. 4. Bilateral bony neural foraminal encroachment as described above, severe at the L5-S1 level on the left. [facility], , 07/17/2024 12:27 PM
[2024-07-17 13:58] LABS: Anisocytosis Slight; Basophils % (A) 1 %; Eosinophils # (A) 0.1 k/uL (0-0.7); Eosinophils % (A) 1 %; HCT 36.3 % (34.0-46.0); HGB 11.9 gm/dL (11.4-16.0); Lymphocytes # (A) 1.4 k/uL (1.0-4.8); Lymphocytes % (A) 30 %; MCH 33.8 pg (25.0-35.0); MCHC 32.7 g/dL (31.0-37.0); MCV 103.3 fL (80.0-100.0); Macrocytosis Moderate; Mean Platelet Volume 7.8; Monocytes # (A) 0.7 k/uL (0-1.0); Monocytes % (A) 15 %; Neutrophils # (A) 2.3 k/uL (1.3-7.7); Neutrophils % (A) 49 %; Platelet Count 289 k/uL (150-450); RBC 3.52 m/uL (3.80-5.40); RDW 18.8 % (11.5-15.5); WBC 4.6 k/uL (3.8-10.6)
[2024-07-17 16:49] LABS: ALT 42 U/L (4-34); AST 52 U/L (14-36); African American GFR (CKD) 29 (>60 ml/min/1.73 sqM); Albumin 3.8 g/dL (3.5-5.0); Alkaline Phosphatase 93 U/L (38-126); Anion Gap 7 mmol/L; Blood Urea Nitrogen 43 mg/dL (7-17); Calcium 9.8 mg/dL (8.4-10.2); Carbon Dioxide 25 mmol/L (22-30); Chloride 104 mmol/L (98-107); Glucose 122 mg/dL (74-99); Non-African American GFR(CKD) 25 (>60 ml/min/1.73 sqM); Potassium 5.2 mmol/L (3.5-5.1); Sodium 136 mmol/L (137-145); Total Bilirubin 0.9 mg/dL (0.2-1.3); Total Protein 6.4 g/dL (6.3-8.2)
[2024-07-17 17:04] LABS: Appearance,Urine Cloudy (Clear); Bacteria,Urine Occasional /hpf; Bilirubin,Urine Negative (Negative); Blood,Urine Negative (Negative); Color,Urine Yellow; Glucose,Urine (UA) Negative (Negative); Hyaline Casts,Urine 28 /lpf (0-2); Ketones,Urine Negative (Negative); Leukocyte Esterase,Urine Large (Negative); Mucus,Urine Rare /hpf; Nitrite,Urine Negative (Negative); Protein,Urine Trace (Negative); RBC,Urine 10 /hpf (0-5); Specific Gravity,Urine 1.018 (1.001-1.035); Squamous Epithelial Cell,Urine 6 /hpf (0-4); Urobilinogen,Urine <2.0 mg/dL (<2.0); WBC,Urine 53 /hpf (0-5)
[2024-07-17] MEDS ORDERED: IBUPROFEN 400 MG TAB PO PRN (18:10)
[2024-07-17] MEDS ORDERED: ACETAMINOPHEN TAB 325 MG TAB PO PRN (18:10)
[2024-07-17] MEDS ORDERED: NALOXONE 0.4 MG/ML 1 ML VIAL IV PRN (18:10)
[2024-07-17] MEDS ORDERED: DEXTROSE 50% SYRINGE 50 ML IVP PRN ×2 (21:38)
--- NOTE | 2024-07-17 21:52 | XR ---
EXAMINATION TYPE: XR Hip Complete RT DATE OF EXAM: 07/17/2024 9:47 PM COMPARISON: None. CLINICAL INDICATION: Female, 69 years old with history of Right hip pain, pain TECHNIQUE: XR Hip Complete RT views were obtained. FINDINGS: There is no acute fracture/dislocation evident. The joint space appears within normal limits. The o verlying soft tissue appears unremarkable. IMPRESSION: No acute fracture or dislocation. [facility], , 07/17/2024 9:50 PM
[2024-07-17 22:11] LABS: Glucose,Whole Blood 123 mg/dL (70-110)
--- NOTE | 2024-07-17 22:53 | US ---
EXAMINATION TYPE: US kidneys/renal and bladder DATE OF EXAM: 07/17/2024 COMPARISON: CT 05/12/24 CLINICAL INDICATION: Female, 69 years old with history of Lainey; LAINEY TECHNIQUE: Grayscale imaging of the bilateral kidneys and urinary bladder: FINDINGS: EXAM MEASUREMENTS: Right Kidney: 9.6 x 5.4 x 5.6 cm Left Kidney: 10.7 x 6.0 x 5.4 cm Slightly limited due to lack of patient mobility and body habitus Right Kidney: There is a 1.2 x 1.3 x 1.3cm anechoic appearing lesion seen in the inferior pole. This corresponds to tiny exophytic cyst anteriorly on CT. Left Kidney: wnl as best seen Bladder: wnl Bilateral Jets seen: attempted, not seen today incidental finding of 4.1 x 3.1 x 4.0cm hyperechoic fibroid within the uterus as seen on 05/12/24 CT There is no evidence for hydronephrosis at this point in time. No nephrolithiasis is seen. No leola rning renal masses are identified. The urinary bladder is adequately distended. IMPRESSION: Slightly suboptimal study without hydronephrosis seen bilaterally. [facility], , 07/17/2024 10:51 PM
[2024-07-18] MEDS: HEPARIN SODIUM,PORCINE 5,000 UNIT/ML 1 ML VIAL SQ SCH (00:24)
--- NOTE | 2024-07-18 01:53 | P.HPIM ---
History of Present Illness H&P Date: 07/17/24 History of present illness; 61-year-old female with PMH of diabetes mellitus, hypertension, osteoarthritis, seizure disorder (last known seizure/07/20), sleep apnea, thyroid disorder, vascular disease, heart failure and history of breast cancer in 2016, bladder cancer in 2017 with recurrence in with distant metastases to the bones and brain.. She presents to the emergency department following a fall and subsequent right-sided hip and low back pain. She fell ye sterday while using the restroom. She states she had a sharp pain in her back which caused her to sit on the floor after using the restroom. She denies hitting her head or any loss of consciousness. She denies loss of bladder or bowel continence. Denies any previous surgeries on her back. Patient is receiving chemotherapy once every 2 weeks. While at home she took [place] and Vicodin for some relief. She states that when attempting to move she'd rate the pain as a 7/10 and described it as being sharp. While lying down she states the pain is a 4/10 and it is when she is most comfortable. She has no acute complaints at this time. Labratory review: -WBCs 4.6, hemoglobin 11.9, hematocrit 36.3, MCV 103.3, platelet 289; sodium 136, potassium 5.2, BUN 43, creatinine 2.0, glucose 122, AST 52, ALT 42 -Urinalysis showed cloudy appearance with trace proteins, large amount leukocyte esterase, 10 urine RBC, 53 urine WBC, 6 urine squamous epithelial cells, occasional bacteria, 20 hyaline casts, rare urine mucus -Respiratory viral panel all negative Imaging: -Lumbar spine CT completed in the ED showed no lumbar spine fracture or malalign ment; marked degenerative disc disease from L2-S1; mild to moderate spinal stenosis at the L2-3 and L3-4 levels; bilateral bony neural foraminal encroachment as described above, severe at the L5-S1 level on the left -Right hip XRay showed no acute fracture or dislocation -EKG done in the ER showed sinus rhythm with a heart rate of 77, T wave abnormalities, consider lateral ischemia Vitals: -Blood pressure 102/63, heart rate 88, respiratory rate 18, SpO2 90% on room air Patient admitted to internal medicine service REVIEW OF SYSTEMS: CONSTITUTIONAL: No fever, no malaise, no fatigue. HEENT: No recent visual problems or hearing problems. Denied any sore throat. CARDIOVASCULAR: No chest pain, orthopnea, PND, no palpitations, no syncope. PULMONARY: No shortness of breath, no cough, no hemoptysis. GASTROINTESTINAL: No diarrhea, no nausea, no vomiting, no abdominal pain. NEUROLOGICAL: No headaches, no weakness, no numbness. HEMATOLOGICAL: Denies any bleeding or petechiae. GENITOURINARY: Denies any burning micturition, frequency, or urgency. MUSCULOSKELETAL/RHEUMATOLOGICAL: Denies any joint pain, swelling, or any muscle pain. ENDOCRINE: Denies any polyuria or polydipsia. The rest of the 14-point review of systems is negative. PHYSICAL EXAMINATION: GENERAL: The patient is alert and oriented x3, not in any acute distress. Obese. HEENT: Pupils are round and equally reacting to light. EOMI. No scleral icterus. No conjunctival pallor. Normocephalic, atraumatic. No pharyngeal erythema. No thyromegaly. CARDIOVASCULAR: S1 and S2 present. No murmurs, rubs, or gallops. PULMONARY: Chest is clear to auscultation, no wheezing or crackles. ABDOMEN: Soft, nontender, nondistended, normoactive bowel sounds. No palpable organomegaly. MUSCULOSKELETAL: No joint swelling or deformity. EXTREMITIES: No cyanosis, clubbing, or pedal edema. NEUROLOGICAL: Gross neurological examination did not reveal any focal deficits. SKIN: No rashes. implantable port in right upper chest (not currently being used for treatments) Assessment and plan 61-year-old female with PMH of diabetes mellitus, hypertension, osteoarthritis, seizure disorder (last known seizure 07/20), sleep apnea, thyroid disorder, vascular disease, heart failure and history of breast cancer in 2016, bladder cancer in 2017 with recurrence in with distant testes the bone and brain. Since the emergency department following a mechanical fall. After discussion with the ED, the patient has been admitted to the internal medicine service for further evaluation. #Intractable low back and right hip pain secondary to a mechanical fall -Lumbar spine CT completed in the ED showed no lumbar spine fracture or malalignment; marked degenerative disc disease from L2-S1; mild to moderate spinal stenosis at the L2-3 and L3-4 levels; bilateral bony neural foraminal encroachment as described above, severe at the L5-S1 level on the left -Right hip XRay showed no acute fracture or dislocation -PT Consulted -OT Consulted -[place] 5-325 Q6H PRN for pain control #Stage IV bladder cancer -Follows with Dr. Walker -Undergoing treatment with Padcev every 2 weeks #[place] likely secondary to urinary retention #Mild hyperkalemia -Bladder scan showed >300 mLs -Catheter initiated -Abdomen/Bladder US showed no hydronephrosis and a bladder WNL -Monitor urinary output #Hypertension -Hold home hydrochlorothiazide 25 mg daily, 100 mg losartan daily, and continue Coreg 6.25 mg twice daily #Seizure disorder -Continue home medication 500 mg Keppra twice daily #Hyperlipidemia -Continue home medication 20 mg Pravachol nightly #Type 2 diabetes -Levemir 24 units daily -Sliding scale insulin, monitor for hypoglycemia GI prohylaxis: Not indicated DVT prophylaxis: 5,000 unit heparin Q8H Dictation was produced using [employer] dictation software. please excuse any grammatical, word or spelling errors. The patient is admitted with an anticipated less than 2 midnight stay as observation status for evaluation of [place]. A total of 65 minutes was spent on the care of this complex patient more than 50% of the time was spent in counseling and care coordination. I have seen and evaluated the patient today. Discussed with the resident and agree with the residents finding and plan as documented in the resident's note. Changes highlighted in blue font. Past Medical History Past Medical History: Cancer, Heart Failure, Diabetes Mellitus, Hypertension, Neurologic Disorder, Osteoarthritis (OA), Seizure Disorder, Sleep Apnea/CPAP/BIPAP, Thyroid Disorder, Vascular Disorder Additional Past Medical History / Comment(s): CT scan lung, "showed 3 vessel calcification, had stress test and BP dropped", cellulitis multiple times, bilateral leg swelling, back pain, "Ivan facial spasm" last seizure 12/06/23, Hx left breast cancer 2016. Hx bladder cancer 2016 and with metastasis/bones and brain/radiation to brain/last chemo 09/2023, SIRS 2012, CPAP use, circulation issues, DDD, scoliosis, joint problems, goiter and low thyroid in teens but ok now. History of Any Multi-Drug Resistant Organisms: None Reported Past Surgical History: Bladder Surgery, Breast Surgery, Cholecystectomy, Joint Replacement, Orthopedic Surgery, Tonsillectomy Additional Past Surgical History / Comment(s): Carpal tunnel release and cyst removal on the right wrist, steroid injection right wrist, open surgery on the left knee, followed by open reconstructive surgery, right knee arthroscopy for medial meniscus tear, bilateral knee replacements, lumbar epidural steroid injections X2, botox injections for seizures, left mastectomy and lymph node removal, vein procedure to left leg, colonoscopy with polyps removed. Past Anesthesia/Blood Transfusion Reactions: Previous Problems w/ Anesthesia, Family History of Problems w/ Anesthesia Additional Past Anesthesia/Blood Transfusion Reaction / Comment(s): Patient states when she had her wrist surgery done she felt the initial incision. States during dental work the anesthetics given make her heart feel fluttery. Son has trouble waking up. Past Psychological History: Anxiety Smoking Status: Former smoker - Past Family History Father Family Medical History: Coronary Artery Disease (CAD) Additional Family Medical History / Comment(s): Father had heart disease/valves r/t having rheumatic fever as a child. Mother Family Medical History: Musculoskeletal Disorder, Neurologic Disorder Additional Family Medical History / Comment(s): Multiple Sclerosis. Medications and Allergies Home Medications Medication Instructions Recorded Confirmed Type Aspirin EC [Ecotrin Low Dose] 81 mg PO QAM 02/16/21 07/17/24 History Losartan Potassium 100 mg PO QAM 02/16/21 07/17/24 History Magnesium Oxide [Mag-Ox] 400 mg PO BID 03/28/23 07/17/24 History carvediloL [Coreg] 6.25 mg PO BID 01/09/24 07/17/24 History hydroCHLOROthiazide 25 mg PO QAM 01/09/24 07/17/24 History levETIRAcetam [Keppra] 500 mg PO BID 01/09/24 07/17/24 History Biotin [Biotin Disolve] 10,000 mcg PO DAILY 07/17/24 07/17/24 History Diphenoxylate HCl/Atropine 1 tab PO TID PRN 07/17/24 07/17/24 History [Lomotil 2.5-0.025 mg Tablet] Insulin Aspart [NovoLOG] 11 units SQ AC-TID 07/17/24 07/17/24 History Insulin Glargine,Hum.rec.anlog 24 unit SQ DAILY 07/17/24 07/17/24 History [Basaglar Kwikpen U-100] Latanoprost [Latanoprost 0.005%] 1 drop BOTH EYES HS 07/17/24 07/17/24 History Padcev 90 mg IV DIRECTED 07/17/24 07/17/24 History Potassium Chloride [Klor-Con M10] 10 meq PO BID 07/17/24 07/17/24 History Pravastatin Sodium [Pravachol] 20 mg PO HS 07/17/24 07/17/24 History Super B Complex 1 tab PO DAILY 07/17/24 07/17/24 History Allergies Allergy/AdvReac Type Severity Reaction Status Date / Time clindamycin Allergy Severe Chest Pain Verified 07/17/24 14:41 ciprofloxacin [From Cipro] Allergy Unknown Verified 07/17/24 14:41 insect venom Allergy Swelling Verified 07/17/24 14:41 venom-honey bee Allergy Swelling Verified 07/17/24 14:41 [bee venom (honey bee)] morphine AdvReac Itching/Ezequiel Verified 07/17/24 14:41 lucinations Physical Exam Vitals: Vital Signs Temp Pulse Resp BP Pulse Ox 07/17/24 19:05 88 18 102/63 98 07/17/24 10:35 98.1 F 69 20 99/53 97 Intake and Output 07/17/24 07/17/24 07/17/24 06:59 14:59 22:59 Other: Weight 109.769 kg Results CBC & Chem 7: 07/17/24 13:31 07/17/24 14:14 Labs: Abnormal Lab Results - Last 24 Hours (Table) 07/17/24 07/17/24 07/17/24 Range/Units 13:31 14:14 16:52 RBC 3.52 L (3.80-5.40) m/uL MCV 103.3 H (80.0-100.0) fL RDW 18.8 H (11.5-15.5) % Sodium 136 L (137-145) mmol/L Potassium 5.2 H (3.5-5.1) mmol/L BUN 43 H (7-17) mg/dL Creatinine 2.00 H (0.52-1.04) mg/dL Glucose 122 H (74-99) mg/dL AST 52 H (14-36) U/L ALT 42 H (4-34) U/L Urine Appearance Cloudy H (Clear) Urine Protein Trace H (Negative) Ur Leukocyte Esterase Large H (Negative) Urine RBC 10 H (0-5) /hpf Urine WBC 53 H (0-5) /hpf Ur Squamous Epith Cells 6 H (0-4) /hpf Urine Bacteria Occasional H (None) /hpf Hyaline Casts 28 H (0-2) /lpf Urine Mucus Rare H (None) /hpf
[2024-07-18 08:26] LABS: Glucose,Whole Blood 126 mg/dL (70-110)
[2024-07-18 08:50] LABS: BUN/Creat Ratio 26.54 Ratio (12.00-20.00); Blood Urea Nitrogen 34.5 mg/dL (9.0-27.0); Chloride 104 mmol/L (96-109); Glucose 132 mg/dL (70-110); Potassium 4.9 mmol/L (3.5-5.5); Sodium 141 mmol/L (135-145)
[2024-07-18 08:51] LABS: ALT 36 U/L (8-44); AST 46 U/L (13-35); Albumin 3.6 g/dL (3.8-4.9); Alkaline Phosphatase 97 U/L (41-126); Calcium 9.6 mg/dL (8.7-10.3); Carbon Dioxide 24.4 mmol/L (21.6-31.8); Globulin 2.4 g/dL (1.6-3.3); Total Bilirubin 0.6 mg/dL (0.3-1.2)
[2024-07-18] MEDS: INSULIN ASPART (NovoLOG) 100 UNIT/ML VIAL SQ SCH (08:51)
[2024-07-18 09:02] LABS: Basophils # (A) 0.02 X 10*3/uL (0.00-0.10); Basophils % (A) 0.7 %; Eosinophils # (A) 0.02 X 10*3/uL (0.04-0.35); Eosinophils % (A) 0.7 %; HCT 30.9 % (37.2-46.3); Lymphocytes # (A) 0.85 X 10*3/uL (0.90-5.00); Lymphocytes % (A) 28.2 %; MCH 33.3 pg (27.0-32.0); MCHC 32.4 g/dL (32.0-37.0); Mean Platelet Volume 10.3 FL (9.5-12.2); Monocytes # (A) 0.58 X 10*3/uL (0.20-1.00); Monocytes % (A) 19.3 %; NRBC Per 100 WBC 0 X 10*3/uL (0.00-0.01); Neutrophils # (A) 1.53 X 10*3/uL (1.80-7.70); Neutrophils % (A) 50.8 %; Platelet Count 177 X 10*3/uL (140-440); RDW 19.5 % (11.5-14.5); WBC 3.01 X 10*3/uL (4.50-10.00)
[2024-07-18] MEDS: carvediloL 6.25 MG TAB PO SCH (09:08)
[2024-07-18] MEDS: ASPIRIN 81 MG PO SCH (09:08)
[2024-07-18] MEDS: levETIRAcetam 500 MG TAB PO SCH (09:08)
[2024-07-18] MEDS: HYDROcodone/APAP 5-325MG 1 EACH TAB PO PRN (09:10)
[2024-07-18] MEDS: INSULIN DETEMIR (LEVEMIR) 100 UNIT/ML SYR SQ SCH (09:12)
[2024-07-18 12:15] LABS: Glucose,Whole Blood 159 mg/dL (70-110)
--- NOTE | 2024-07-18 16:50 | P.PN ---
Subjective Progress Note Date: 07/18/24 69-year-old female with PMH of diabetes mellitus, hypertension, osteoarthritis, seizure disorder (last known seizure/07/20), sleep apnea, thyroid disorder, vascular disease, heart failure and history of breast cancer in 2016, bladder cancer in 2017 with recurrence in with distant metastases to the bones and brain. She presents to the emergency department following a fall and subsequent right-sided hip and low back pain. She fell yesterday while using the restroom. She states she had a sharp pain in her back which caused her to sit on the floor after using the restroom. She denies hitting her head or any loss of consciousness. She denies loss of bladder or bowel continence. Blood pressure 102/63, heart rate 88, respiratory rate 18, SpO2 90% on room air. WBCs 4.6, hemoglobin 11.9, hematocrit 36.3, MCV 103.3, platelet 289; sodium 136, potassium 5.2, BUN 43, creatinine 2.0, glucose 122, AST 52, ALT 42. Urinalysis showed cloudy appearance with trace proteins, large amount leukocyte esterase, 10 urine RBC, 53 urine WBC, 6 urine squamous epithelial cells, occasional bacteria, 20 hyaline casts, rare urine mucus. Respiratory panel negative. Right hip XRay showed no acute fracture or dislocation. Lumbar spine CT completed in the ED showed no lumbar spine fracture or misalignment; marked degenerative disc disease from L2-S1; mild to moderate spinal stenosis at the L2-3 and L3-4 l evels; bilateral bony neural foraminal encroachment, severe at the L5-S1 level on the left. 07/18 Patient was seen and examined. Continue lower back pain. Difficulty with ADL and IADLs. CBC and CMP significant for WBC 3.01, RBC 3, Hg 10, Hct 30.9, MCV 103, AG 12.6, BUN 34.5, glu 132, alb 3.6. General: non toxic, no distress, appears at stated age Derm: warm, dry Head: atraumatic, normocephalic, symmetric Eyes: EOMI, no lid lag, anicteric sclera Mouth: no lip lesion, mucus membranes moist Cardiovascular: S1S2 reg, no murmur Lungs: CTA bilateral, no rhonchi, no rales , no accessory muscle use Ext: no gross muscle atrophy, no edema, no contractures Neuro: no focal neuro deficits Psych: Alert, oriented, appropriate affect Based on my assessment of this patient, this patient meets a high complexity level of care. Intractable back pain: CT L spine as above. Pain control with Tylenol, [place] PRN. Fall precautions. PT and OT consult. Orthospine and Pain management consulted Stage IV bladder cancer: Follows with Dr. Walker. Undergoing treatment with Padcev every 2 weeks. Acute kidney injury: Renal US no hydronephrosis. Likely obstructive. Improved with [place] catheter. Hypertension: Coreg 6.25 mg PO BID. Holding Losartan for now. Diabetes mellitus: Levemir 25 units QD. ISS. Accuchecks ACHS. Hypoglycemic precautions. Seizure disorder: Keppra 500 mg PO BID. HLD: Pravachol 20 mg PO QHS. Resolved: HyperK CODE STATUS: DVT Prophylaxis: Heparin SQ GI Prophylaxis: Designated medical POA if patient is not able to make medical decisions for themselves: I have reviewed the following technology applications consultant notes: I have reviewed the results of the following tests: As above. I have ordered the following tests: CBC and BMP in the AM. I have discussed the care of this patient with the following independent historian: Family. I have independently interpreted the following test below: I have discussed the management of this patient with the following physician: Objective - Vital Signs Vital signs: Vital Signs Temp 97.5 F L 07/18/24 15:22 Pulse 83 07/18/24 15:22 Resp 17 07/18/24 15:22 BP 103/60 07/18/24 15:22 Pulse Ox 99 07/18/24 15:22 FiO2 Intake & Output 07/17/24 07/18/24 07/18/24 18:59 06:59 18:59 Weight 109.769 kg 109.769 kg - Labs CBC & Chem 7: 07/18/24 06:20 07/18/24 06:13 Labs: Abnormal Lab Results - Last 24 Hours (Table) 07/17/24 07/17/24 07/17/24 Range/Units 14:14 16:52 22:09 WBC (4.50-10.00) X 10*3/uL RBC (4.10-5.20) X 10*6/uL Hgb (12.0-15.0) g/dL Hct (37.2-46.3) % MCV (80.0-97.0) FL MCH (27.0-32.0) pg RDW (11.5-14.5) % Neutrophils # (1.80-7.70) X 10*3/uL Lymphocytes # (0.90-5.00) X 10*3/uL Eosinophils # (0.04-0.35) X 10*3/uL Sodium 136 L (137-145) mmol/L Potassium 5.2 H (3.5-5.1) mmol/L Anion Gap (4.00-12.00) mmol/L BUN 43 H (7-17) mg/dL Creatinine 2.00 H (0.52-1.04) mg/dL Est GFR (CKD-EPI) (>=60) BUN/Creatinine Ratio (12.00-20.00) Ratio Glucose 122 H (74-99) mg/dL POC Glucose (mg/dL) 123 H (70-110) mg/dL AST 52 H (14-36) U/L ALT 42 H (4-34) U/L Total Protein (6.2-8.2) g/dL Albumin (3.8-4.9) g/dL Albumin/Globulin Ratio (1.60-3.17) Ratio Urine Appearance Cloudy H (Clear) Urine Protein Trace H (Negative) Ur Leukocyte Esterase Large H (Negative) Urine RBC 10 H (0-5) /hpf Urine WBC 53 H (0-5) /hpf Ur Squamous Epith Cells 6 H (0-4) /hpf Urine Bacteria Occasional H (None) /hpf Hyaline Casts 28 H (0-2) /lpf Urine Mucus Rare H (None) /hpf 07/18/24 07/18/24 07/18/24 Range/Units 06:13 06:20 08:25 WBC 3.01 L (4.50-10.00) X 10*3/uL RBC 3.00 L (4.10-5.20) X 10*6/uL Hgb 10.0 L (12.0-15.0) g/dL Hct 30.9 L (37.2-46.3) % MCV 103.0 H (80.0-97.0) FL MCH 33.3 H (27.0-32.0) pg RDW 19.5 H (11.5-14.5) % Neutrophils # 1.53 L (1.80-7.70) X 10*3/uL Lymphocytes # 0.85 L (0.90-5.00) X 10*3/uL Eosinophils # 0.02 L (0.04-0.35) X 10*3/uL Sodium (137-145) mmol/L Potassium (3.5-5.1) mmol/L Anion Gap 12.60 H (4.00-12.00) mmol/L BUN 34.5 H (7-17) mg/dL Creatinine (0.52-1.04) mg/dL Est GFR (CKD-EPI) 45 L (>=60) BUN/Creatinine Ratio 26.54 H (12.00-20.00) Ratio Glucose 132 H (74-99) mg/dL POC Glucose (mg/dL) 126 H (70-110) mg/dL AST 46 H (14-36) U/L ALT (4-34) U/L Total Protein 6.0 L (6.2-8.2) g/dL Albumin 3.6 L (3.8-4.9) g/dL Albumin/Globulin Ratio 1.50 L (1.60-3.17) Ratio Urine Appearance (Clear) Urine Protein (Negative) Ur Leukocyte Esterase (Negative) Urine RBC (0-5) /hpf Urine WBC (0-5) /hpf Ur Squamous Epith Cells (0-4) /hpf Urine Bacteria (None) /hpf Hyaline Casts (0-2) /lpf Urine Mucus (None) /hpf 07/18/24 Range/Units 12:12 WBC (4.50-10.00) X 10*3/uL RBC (4.10-5.20) X 10*6/uL Hgb (12.0-15.0) g/dL Hct (37.2-46.3) % MCV (80.0-97.0) FL MCH (27.0-32.0) pg RDW (11.5-14.5) % Neutrophils # (1.80-7.70) X 10*3/uL Lymphocytes # (0.90-5.00) X 10*3/uL Eosinophils # (0.04-0.35) X 10*3/uL Sodium (137-145) mmol/L Potassium (3.5-5.1) mmol/L Anion Gap (4.00-12.00) mmol/L BUN (7-17) mg/dL Creatinine (0.52-1.04) mg/dL Est GFR (CKD-EPI) (>=60) BUN/Creatinine Ratio (12.00-20.00) Ratio Glucose (74-99) mg/dL POC Glucose (mg/dL) 159 H (70-110) mg/dL AST (14-36) U/L ALT (4-34) U/L Total Protein (6.2-8.2) g/dL Albumin (3.8-4.9) g/dL Albumin/Globulin Ratio (1.60-3.17) Ratio Urine Appearance (Clear) Urine Protein (Negative) Ur Leukocyte Esterase (Negative) Urine RBC (0-5) /hpf Urine WBC (0-5) /hpf Ur Squamous Epith Cells (0-4) /hpf Urine Bacteria (None) /hpf Hyaline Casts (0-2) /lpf Urine Mucus (None) /hpf
[2024-07-18 17:37] LABS: Glucose,Whole Blood 123 mg/dL (70-110)
--- NOTE | 2024-07-18 19:44 | P.CNOR ---
History of Present Illness - [facility] Consult date: 07/18/24 Requesting physician: Arina Borrego Consult reason: back pain, other (BLE weakness) History of present illness: History of Presenting Illness Patient is a pleasant 69-year-old female who presented to the ER due to a recent fall. Patient reports that on 07/16/24 she had walked into the restroom utilizing her walker and after using the bathroom she attempted to turn and felt a sharp pain in her low back that caused her to slide onto the floor. Patient was unable to get herself up. Her spouse had to assist with a lift chair. Spouse states that patient refused to seek medical treatment at that time and he was able to convince her to come in yesterday on 07/17/2024. Patient does have complaint of diffuse low back pain. She denies any radiculopathy or numbness or tingling to the bilateral lower extremities. Patient denies any perineal numbness or tingling, bowel or bladder incontinence or retention. 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 Patient has an orthopedic history of bilateral knee replacements. Patient does live at home with her spouse and normally utilizes a walker with ambulation. Patient seen and examined this evening. Spouse is at bedside. Patient jennifer nues to report diffuse low back pain. Patient states she has not been up out of bed since her admission. Informed patient that physical therapy and Occupational Therapy has been ordered, encourage patient to work with therapy as tolerated. Review of Systems Pertinent positives and negatives as discussed in HPI, a complete review of systems was performed and all other systems are negative. Physical Examination General: The patient is awake and alert, in no acute distress Skin: Skin is warm and dry with no obvious rashes or lesions. Neck: The neck is supple, there is no tenderness and ROM intact. Cardiovascular: There is a regular rate and rhythm. Respiratory: Respirations are non-labored. Gastrointestinal: Soft, non-distended, non-tender abdomen. Back: There is mild tenderness to palpation in the midline region. There is no obvious deformity. Musculoskeletal: ROM limited secondary to pain Right: shoulder abduction 5/5, elbow flexors 5/5, wrist dorsiflexors 5/5. finger abductor 5/5, sole molding machine operator 5/5, hip flexor 4-/5, knee flexor 4/5, ankle dorsiflexor 5/5, ankle plantarflexion 5/5 and extensor hallucis 5/5. Left: shoulder abduction 5/5, elbow flexors 5/5, wrist dorsiflexors 5/5. finger abductor 5/5, sole molding machine operator 5/5, hip flexor 4-/5, knee flexor 4/5, ankle dorsiflexor 5/5, ankle plantarflexion 5/5 and extensor hallucis 5/5. Neurological: CN 2-12 intact. There are no obvious motor or sensory deficits. Movement and coordination equal and intact. Sensory exam to light touch intact C5-T1 and intact from L2-S1. Reflexes 2/4 in bilateral upper and lower extremities. Negative Hoffmans, babinski, and clonus signs. Psychiatric: Cooperative, appropriate mood & affect, normal judgment. Assessment CT scan of the lumbar spine taken on 07/17/2024 demonstrates degenerative disc disease L2-S1 with mild to moderate spinal stenosis at the L2-3 and L3-4 levels. There is severe bony encroachment at the L5-S1 level on the left. Lumbar spondylosis with foraminal stenosis Mechanical low back pain Bilateral lower extremity weakness Multiple medical comorbidities Plan At this time we have ordered an MRI of the Lumbar spine for further evaluation. 2. Appreciate medical management 3. Pain management - patient may benefit from trial of steroids, continue with Tylenol and [place], Utilize ice therapy 20min every hour as needed. 4. PT/OT - weightbearing as tolerated with a walker as needed. 5. Appreciate consult. I reviewed and discussed this case with my attending Dr. Oswald, whom has reviewed this chart and films and is in agreement with assessment and plan of care as outlined above. I have personally seen and examined the patient, performed the documentation and the assessment and plan as written. Number of minutes spent on the visit: 30m. Past Medical History Past Medical History: Cancer, Heart Failure, Diabetes Mellitus, Hypertension, Neurologic Disorder, Osteoarthritis (OA), Seizure Disorder, Sleep Apnea/CPAP/BIPAP, Thyroid Disorder, Vascular Disorder Additional Past Medical History / Comment(s): CT scan lung, "showed 3 vessel calcification, had stress test and BP dropped", cellulitis multiple times, bilateral leg swelling, back pain, "Ivan facial spasm" last seizure 12/06/23, Hx left breast cancer 2016. Hx bladder cancer 2016 and with metastasis/bones and brain/radiation to brain/last chemo 09/2023, SIRS 2012, CPAP use, circulation issues, DDD, scoliosis, joint problems, goiter and low thyroid in teens but ok now. Chemo 2023 course of 18, 3 weeks on 1 week off. History of Any Multi-Drug Resistant Organisms: None Reported Past Surgical History: Bladder Surgery, Breast Surgery, Cholecystectomy, Joint Replacement, Orthopedic Surgery, Tonsillectomy Additional Past Surgical History / Comment(s): Carpal tunnel release and cyst removal on the right wrist, steroid injection right wrist, open surgery on the left knee, followed by open reconstructive surgery, right knee arthroscopy for medial meniscus tear, bilateral knee replacements, lumbar epidural steroid injections X2, botox injections for seizures, left mastectomy and lymph node removal, vein procedure to left leg, colonoscopy with polyps removed. Past Anesthesia/Blood Transfusion Reactions: Previous Problems w/ Anesthesia, Family History of Problems w/ Anesthesia Additional Past Anesthesia/Blood Transfusion Reaction / Comm: Patient states when she had her wrist surgery done she felt the initial incision. States during dental work the anesthetics given make her heart feel fluttery. Son has trouble waking up. Past Psychological History: Anxiety Additional Psychological History / Comment(s): Pt resides with significant other/25 years. Uses cane, walker and wheelchair Smoking Status: Former smoker Past Alcohol Use History: Rare Additional Past Alcohol Use History / Comment(s): Smoked 1 1/2-2 packs per day for 25-30 years, quit 12 years ago. Past Drug Use History: Marijuana Additional Drug Use History / Comment(s): Hx Marijuana use. None in quite a while. - Past Family History Father Family Medical History: Coronary Artery Disease (CAD) Additional Family Medical History / Comment(s): Father had heart disease/valves r/t having rheumatic fever as a child. Mother Family Medical History: Musculoskeletal Disorder, Neurologic Disorder Additional Family Medical History / Comment(s): Multiple Sclerosis. Medications and Allergies Home Medications Medication Instructions Recorded Confirmed Type Aspirin EC [Ecotrin Low Dose] 81 mg PO QAM 02/16/21 07/17/24 History Losartan Potassium 100 mg PO QAM 02/16/21 07/17/24 History Magnesium Oxide [Mag-Ox] 400 mg PO BID 03/28/23 07/17/24 History carvediloL [Coreg] 6.25 mg PO BID 01/09/24 07/17/24 History hydroCHLOROthiazide 25 mg PO QAM 01/09/24 07/17/24 History levETIRAcetam [Keppra] 500 mg PO BID 01/09/24 07/17/24 History Biotin [Biotin Disolve] 10,000 mcg PO DAILY 07/17/24 07/17/24 History Diphenoxylate HCl/Atropine 1 tab PO TID PRN 07/17/24 07/17/24 History [Lomotil 2.5-0.025 mg Tablet] Insulin Aspart [NovoLOG] 11 units SQ AC-TID 07/17/24 07/17/24 History Insulin Glargine,Hum.rec.anlog 24 unit SQ DAILY 07/17/24 07/17/24 History [Basaglar Kwikpen U-100] Latanoprost [Latanoprost 0.005%] 1 drop BOTH EYES HS 07/17/24 07/17/24 History Padcev 90 mg IV DIRECTED 07/17/24 07/17/24 History Potassium Chloride [Klor-Con M10] 10 meq PO BID 07/17/24 07/17/24 History Pravastatin Sodium [Pravachol] 20 mg PO HS 07/17/24 07/17/24 History Super B Complex 1 tab PO DAILY 07/17/24 07/17/24 History Allergies Allergy/AdvReac Type Severity Reaction Status Date / Time clindamycin Allergy Severe Chest Pain Verified 07/17/24 14:41 ciprofloxacin [From Cipro] Allergy Unknown Verified 07/17/24 14:41 insect venom Allergy Swelling Verified 07/17/24 14:41 venom-honey bee Allergy Swelling Verified 07/17/24 14:41 [bee venom (honey bee)] morphine AdvReac Itching/Ezequiel Verified 07/17/24 14:41 lucinations Results - Labs Labs: Abnormal Lab Results - Last 24 Hours (Table) 07/17/24 07/18/24 07/18/24 Range/Units 22:09 06:13 06:20 WBC 3.01 L (4.50-10.00) X 10*3/uL RBC 3.00 L (4.10-5.20) X 10*6/uL Hgb 10.0 L (12.0-15.0) g/dL Hct 30.9 L (37.2-46.3) % MCV 103.0 H (80.0-97.0) FL MCH 33.3 H (27.0-32.0) pg RDW 19.5 H (11.5-14.5) % Neutrophils # 1.53 L (1.80-7.70) X 10*3/uL Lymphocytes # 0.85 L (0.90-5.00) X 10*3/uL Eosinophils # 0.02 L (0.04-0.35) X 10*3/uL Anion Gap 12.60 H (4.00-12.00) mmol/L BUN 34.5 H (9.0-27.0) mg/dL Est GFR (CKD-EPI) 45 L (>=60) BUN/Creatinine Ratio 26.54 H (12.00-20.00) Ratio Glucose 132 H (70-110) mg/dL POC Glucose (mg/dL) 123 H (70-110) mg/dL AST 46 H (13-35) U/L Total Protein 6.0 L (6.2-8.2) g/dL Albumin 3.6 L (3.8-4.9) g/dL Albumin/Globulin Ratio 1.50 L (1.60-3.17) Ratio 07/18/24 07/18/24 07/18/24 Range/Units 08:25 12:12 17:36 WBC (4.50-10.00) X 10*3/uL RBC (4.10-5.20) X 10*6/uL Hgb (12.0-15.0) g/dL Hct (37.2-46.3) % MCV (80.0-97.0) FL MCH (27.0-32.0) pg RDW (11.5-14.5) % Neutrophils # (1.80-7.70) X 10*3/uL Lymphocytes # (0.90-5.00) X 10*3/uL Eosinophils # (0.04-0.35) X 10*3/uL Anion Gap (4.00-12.00) mmol/L BUN (9.0-27.0) mg/dL Est GFR (CKD-EPI) (>=60) BUN/Creatinine Ratio (12.00-20.00) Ratio Glucose (70-110) mg/dL POC Glucose (mg/dL) 126 H 159 H 123 H (70-110) mg/dL AST (13-35) U/L Total Protein (6.2-8.2) g/dL Albumin (3.8-4.9) g/dL Albumin/Globulin Ratio (1.60-3.17) Ratio H & H 07/17/24 07/18/24 Range/Units 13:31 06:20 Hgb 11.9 10.0 L (11.4-16.0) gm/dL Hct 36.3 30.9 L (34.0-46.0) % Result Diagrams: 07/18/24 06:20 07/18/24 06:13
[2024-07-18 20:21] LABS: Glucose,Whole Blood 173 mg/dL (70-110)
[2024-07-18] MEDS: PRAVASTATIN SODIUM 20 MG TAB PO SCH (21:09)
[2024-07-18] MEDS: ZINC OXIDE PASTE (Z-GUARD) 1 APPLIC TOPICAL SCH (21:09)
[2024-07-18] MEDS: NYSTATIN 100,000 UNIT/GM POWD 15 GM TOPICAL SCH (21:09)
[2024-07-18] MEDS: LATANOPROST 0.005% OPHTH DROPS 2.5 ML BTL BOTH EYES SCH (23:44)
--- NOTE | 2024-07-19 07:19 | P.PN ---
Progress Note - Text Progress Note Date: 07/19/24 Awaiting MRI of the Lumbar spine. Pending these results, surgical options have been discussed with patient and her spouse. They are willing to proceed if it is necessary. Continue to encourage patient to work with PT as tolerated and to perform bed exercises of the lower extremities as able.
[2024-07-19 07:36] LABS: Anisocytosis Slight; HCT 29.8 % (34.0-46.0); MCHC 32.9 g/dL (31.0-37.0); MCV 103.3 fL (80.0-100.0); Macrocytosis Moderate; Mean Platelet Volume 8.4; Platelet Count 172 k/uL (150-450); RBC 2.89 m/uL (3.80-5.40); RDW 18.7 % (11.5-15.5); WBC 2.8 k/uL (3.8-10.6)
[2024-07-19 07:46] LABS: Glucose,Whole Blood 105 mg/dL (70-110)
[2024-07-19 07:48] LABS: HGB 9.8 gm/dL (11.4-16.0)
[2024-07-19 08:04] LABS: African American GFR (CKD) 88 (>60 ml/min/1.73 sqM); Anion Gap 6 mmol/L; Blood Urea Nitrogen 26 mg/dL (7-17); Calcium 9.3 mg/dL (8.4-10.2); Carbon Dioxide 27 mmol/L (22-30); Chloride 107 mmol/L (98-107); Glucose 101 mg/dL (74-99); Non-African American GFR(CKD) 76 (>60 ml/min/1.73 sqM); Potassium 4.2 mmol/L (3.5-5.1); Sodium 140 mmol/L (137-145)
--- NOTE | 2024-07-19 12:18 | MR ---
EXAMINATION TYPE: MR lumbar spine wo con DATE OF EXAM: 07/19/2024 12:12 PM COMPARISON: None. CLINICAL INDICATION: Female, 69 years old with history of BLE weakness and back pain, Lower back pain , BLE weakness. IV Contrast: cc (None if empty) TECHNIQUE: Multiplanar, multisequence images of the lumbar spine were acquired without IV contrast. L1-L2: Normal disc appearance without desiccation. No herniation, protrusion or disc bulging. No ca nal stenosis is present. Foramina are patent bilaterally. L2-L3: Disc desiccation with posterior disc bulges encapsulated resulting in mild central stenosis an d right lateral recess stenosis. Right greater than left foraminal encroachment. L3-L4: Severe disc desiccation and posterior disc bulge and encapsulating spur. Hypertrophied ligamen emerson flavum and facet joint arthropathy resulting in moderate to severe central stenosis. L4-L5: Severe disc desiccation and posterior disc bulge and encapsulating spur. Hypertrophied ligamen emerson flavum and facet joint arthropathy resulting in moderate to severe central stenosis. L5-S1: Severe disc desiccation. Posterior disc bulge without central stenosis. Facet joint arthropath y and bilateral foraminal encroachment. Lumbar segments are intact. No paraspinal masses are identified. Conus medullaris has a normal appe arance. Scattered ventral spondylosis. IMPRESSION: 1. Bilateral neural foraminal encroachment with degenerative disc disease as outlined above. [facility], , 07/19/2024 12:15 PM
[2024-07-19 12:25] LABS: Glucose,Whole Blood 120 mg/dL (70-110)
--- NOTE | 2024-07-19 13:05 | P.PN ---
Subjective Progress Note Date: 07/19/24 69-year-old female with PMH of diabetes mellitus, hypertension, osteoarthritis, seizure disorder, sleep apnea, thyroid disorder, vascular disease, heart failure and history of breast cancer in 2016, bladder cancer in 2017 with recurrence in with distant metastases to the bones and brain. She presents to the emergency department following a fall and subsequent right-sided hip and low back pain. She fell yesterday while using the restroom. She states she had a sharp pain in her back which caused her to sit on the floor after using the restroom. She denies hitting her head or any loss of consciousness. She denies loss of bladder or bowel continence. BP 102/63, HR 88, RR 18, SpO2 90% on RA. CBC and CMP significant for RBC 3.52, MCV 103.3, Na 136, K 5.2, BUN 43, Cr 2, glu 122, AST 52, ALT 42. Urinalysis large LE, 10 urine RBC, 53 urine WBC. Respiratory panel negative. Right hip XRay showed no acute fracture or dislocation. Lumbar spine CT showed marked DJD from L2-S1; mild to moderate spinal stenosis at the L2-3 and L3-4 levels; bilateral bony neural foraminal encroachment, severe at the L5-S1 level on the left. 07/19 Patient was seen and examined. Continue lower back pain. Difficulty with ADL and IADLs. CBC and CMP significant for WBC 2.8, RBC 2.89, Hg 9.8, Hct 29.8, MCV 103.3, BUN 26, glu 101. Orthospine recommends MRI L spine. General: non toxic, no distress, appears at stated age Derm: warm, dry Head: atraumatic, normocephalic, symmetric Eyes: EOMI, no lid lag, anicteric sclera Mouth: no lip lesion, mucus membranes moist Cardiovascular: S1S2 reg, no murmur Lungs: CTA bilateral, no rhonchi, no rales , no accessory muscle use Ext: no gross muscle atrophy, no edema, no contractures Neuro: no focal neuro deficits Psych: Alert, oriented, appropriate affect Based on my assessment of this patient, this patient meets a high complexity level of care. Intractable back pain: CT L spine as above. Pain control with Tylenol, [place] PRN. Fall precautions. PT and OT consult. Orthospine and Pain management consulted. MRI L spine pending. Stage IV bladder cancer: Follows with Dr. Walker. Undergoing treatment with Padcev every 2 weeks. Leukopenia and Macrocytic anemia in the setting of malignancy and chemotherapy. Acute kidney injury: Renal US no hydronephrosis. Likely obstructive. Improved with [place] catheter. Voiding trial when more mobile. Hypertension: Coreg 6.25 mg PO BID. Holding Losartan for now. Diabetes mellitus: Levemir 25 units QD. ISS. Accuchecks ACHS. Hypoglycemic precautions. Seizure disorder: Keppra 500 mg PO BID. HLD: Pravachol 20 mg PO QHS. Resolved: HyperK CODE STATUS: DVT Prophylaxis: Heparin SQ GI Prophylaxis: Designated medical POA if patient is not able to make medical decisions for themselves: I have reviewed the following claims consultant notes: [facility]. I have reviewed the results of the following tests: CBC, CMP. I have ordered the following tests: I have discussed the care of this patient with the following independent hist orian: I have independently interpreted the following test below: I have discussed the management of this patient with the following physician: Objective - Vital Signs Vital signs: Vital Signs Temp 97.8 F 07/19/24 01:43 Pulse 74 07/19/24 01:43 Resp 16 07/19/24 01:43 BP 105/65 07/19/24 01:43 Pulse Ox 91 L 07/19/24 01:43 FiO2 Intake & Output 07/18/24 07/19/24 07/19/24 18:59 06:59 18:59 Intake Total 590 Output Total 200 801 Balance -200 -211 Weight 105 kg Intake: Oral 590 Output: Urine 200 800 Stool 1 Other: Voiding Method Indwelling Catheter # Bowel Movements 0 - Labs CBC & Chem 7: 07/19/24 06:40 07/19/24 06:40 Labs: Abnormal Lab Results - Last 24 Hours (Table) 07/18/24 07/18/24 07/18/24 Range/Units 06:13 06:20 12:12 WBC 3.01 L (4.50-10.00) X 10*3/uL RBC 3.00 L (4.10-5.20) X 10*6/uL Hgb 10.0 L (12.0-15.0) g/dL Hct 30.9 L (37.2-46.3) % MCV 103.0 H (80.0-97.0) FL MCH 33.3 H (27.0-32.0) pg RDW 19.5 H (11.5-14.5) % Neutrophils # 1.53 L (1.80-7.70) X 10*3/uL Lymphocytes # 0.85 L (0.90-5.00) X 10*3/uL Eosinophils # 0.02 L (0.04-0.35) X 10*3/uL Anion Gap 12.60 H (4.00-12.00) mmol/L BUN 34.5 H (9.0-27.0) mg/dL Est GFR (CKD-EPI) 45 L (>=60) BUN/Creatinine Ratio 26.54 H (12.00-20.00) Ratio Glucose 132 H (70-110) mg/dL POC Glucose (mg/dL) 159 H (70-110) mg/dL AST 46 H (13-35) U/L Total Protein 6.0 L (6.2-8.2) g/dL Albumin 3.6 L (3.8-4.9) g/dL Albumin/Globulin Ratio 1.50 L (1.60-3.17) Ratio 07/18/24 07/18/24 07/19/24 Range/Units 17:36 20:20 06:40 WBC 2.8 L (4.50-10.00) X 10*3/uL RBC 2.89 L (4.10-5.20) X 10*6/uL Hgb 9.8 L D (12.0-15.0) g/dL Hct 29.8 L (37.2-46.3) % MCV 103.3 H (80.0-97.0) FL MCH (27.0-32.0) pg RDW 18.7 H (11.5-14.5) % Neutrophils # (1.80-7.70) X 10*3/uL Lymphocytes # (0.90-5.00) X 10*3/uL Eosinophils # (0.04-0.35) X 10*3/uL Anion Gap (4.00-12.00) mmol/L BUN (9.0-27.0) mg/dL Est GFR (CKD-EPI) (>=60) BUN/Creatinine Ratio (12.00-20.00) Ratio Glucose (70-110) mg/dL POC Glucose (mg/dL) 123 H 173 H (70-110) mg/dL AST (13-35) U/L Total Protein (6.2-8.2) g/dL Albumin (3.8-4.9) g/dL Albumin/Globulin Ratio (1.60-3.17) Ratio 07/19/24 Range/Units 06:40 WBC (4.50-10.00) X 10*3/uL RBC (4.10-5.20) X 10*6/uL Hgb (12.0-15.0) g/dL Hct (37.2-46.3) % MCV (80.0-97.0) FL MCH (27.0-32.0) pg RDW (11.5-14.5) % Neutrophils # (1.80-7.70) X 10*3/uL Lymphocytes # (0.90-5.00) X 10*3/uL Eosinophils # (0.04-0.35) X 10*3/uL Anion Gap (4.00-12.00) mmol/L BUN 26 H (9.0-27.0) mg/dL Est GFR (CKD-EPI) (>=60) BUN/Creatinine Ratio (12.00-20.00) Ratio Glucose 101 H (70-110) mg/dL POC Glucose (mg/dL) (70-110) mg/dL AST (13-35) U/L Total Protein (6.2-8.2) g/dL Albumin (3.8-4.9) g/dL Albumin/Globulin Ratio (1.60-3.17) Ratio Microbiology - Last 24 Hours (Table) 07/17/24 17:23 Urine Culture - Final Urine,Clean Catch
[2024-07-19 17:40] LABS: Glucose,Whole Blood 110 mg/dL (70-110)
[2024-07-19 20:21] LABS: Glucose,Whole Blood 174 mg/dL (70-110)
[2024-07-20 07:20] LABS: Glucose,Whole Blood 124 mg/dL (70-110)
--- NOTE | 2024-07-20 10:12 | P.PN ---
Progress Note - Text Progress Note Date: 07/19/24 [facility] Progress Note SUBJECTIVE: 69-year-old female presenting with weakness and bilateral lower extremity issues. The patient has a history of disseminated metastatic carcinoma of which at 1 point she was in remission but has now seemingly returned. She does state that she has multiple lesions in her brain as well. Patient's is at bedside and provides most of the history as the patient has short-term memory loss. She has been in and out of [facility] several times for other medical reasons spent time down at [facility] as well as [place] related to her medical issues. states that she has been progressively getting weaker and having difficulty with ambulation as well as back pain that is preventing her from getting out of the bed and doing things. She states this has been ongoing for the past week to 2 weeks. It does not seem to be getting get better with conservative measures however she has not been taking very many medications at home as she has been on chemotherapy radiation and other forms of treatment monoclonal antibodies for her cancer. She denies any bowel or bladder issues she denies any perineal numbness or tingling at this time. OBJECTIVE: Stable General: AOX3, NAD Incision CDI Motor Exam: RUE: 5/5 SA, EF, EE, WF, WE, Intrinsic, Materials And Processes Manager LUE: 5/5 SA, EF, EE, WF, WE, Intrinsic, Materials And Processes Manager RLE: 4/5 HF, KE, KF, DF, PF, EHL, FHL LLE: 4/5 HF, KE, KF, DF, PF, EHL, FH Pain with any motion and testing Reflexes: 2/4 in UE and LE b/l SILT C5-T1 and L2-S1 Dermatomal deficit: Somewhat global in the lower extremities however more paresthesia related +distal pulses palpable Negative hoffmans b/l Negative babinski b/l No clonus IMAGING: CT and MRI of the lumbar spine are reviewed and demonstrate severe spondylosis from L3-S1 with severe disc collapse central and bilateral foraminal stenosis as well as changes within the vertebral body suggesting metastatic disease. There are no large metastatic lesions within the canal however there is multiple levels of degenerative disc herniation facet arthropathy hypertrophy and ligamental stenosis causing issues and thecal compression. No acute fractures noted. Multiple intRAbody lesions. ASSESSMENT: * 69-year-old female with history of metastatic carcinoma with low back pain * L3-S1 spondylosis severe with stenosis and radiculopathy * Lower extremity weakness bilateral * Lower extremity paresthesias bilateral * Complex medical patient PLAN: -I had a long discussion with the as well as the patient about her current condition as well as treatment options including conservative measures surgical measures and alternatives. At this point I do feel the patient would benefit better from conservative measures giving her severe clinical condition as well as issues surrounding it. I do feel like a big surgery for her would be a recovery that she would not do very well with at this time however if she continues to decline in her ambulatory status and her functional status she may need something done regardless and this is up to the patient and her at this time she does not want any consider any surgical measures done. This is very understandable. We will recommend for optimization of her medications as appropriate to help with her symptoms. Should she decline clinically and her lumbar status we can revisit however a large surgical or even any surgical intervention on her at this point carries a high risk. Her and her understand this and are comfortable with that. -PT/OT, OK for up and about. -TEDs, SCDs, Early ambulation
[2024-07-20 12:13] LABS: Glucose,Whole Blood 112 mg/dL (70-110)
--- NOTE | 2024-07-20 13:10 | P.PN ---
Subjective Progress Note Date: 07/20/24 69-year-old female with PMH of diabetes mellitus, hypertension, osteoarthritis, seizure disorder, sleep apnea, thyroid disorder, vascular disease, heart failure and history of breast cancer in 2016, bladder cancer in 2017 with recurrence in with distant metastases to the bones and brain. She presents to the emergency department following a fall and subsequent right-sided hip and low back pain. She fell yesterday while using the restroom. She states she had a sharp pain in her back which caused her to sit on the floor after using the restroom. She denies hitting her head or any loss of consciousness. She denies loss of bladder or bowel continence. BP 102/63, HR 88, RR 18, SpO2 90% on RA. CBC and CMP significant for RBC 3.52, MCV 103.3, Na 136, K 5.2, BUN 43, Cr 2, glu 122, AST 52, ALT 42. Urinalysis large LE, 10 urine RBC, 53 urine WBC. Respiratory panel negative. Right hip XRay showed no acute fracture or dislocation. Lumbar spine CT showed marked DJD from L2-S1; mild to moderate spinal stenosis at the L2-3 and L3-4 levels; bilateral bony neural foraminal encroachment, severe at the L5-S1 level on the left. Orthospine consulted, MRI L spine ordered showing severe disc desiccation with posterior disc bulge resulting in mild central stenosis L2L3 + mod-severe L3L4, L4L5, L5S1. 07/20 Patient was seen and examined. Continue lower back pain. Difficulty with ADL and IADLs. MRI L spine reviewed as above. General: non toxic, no distress, appears at stated age Derm: warm, dry Head: atraumatic, normocephalic, symmetric Eyes: EOMI, no lid lag, anicteric sclera Mouth: no lip lesion, mucus membranes moist Cardiovascular: S1S2 reg, no murmur Lungs: CTA bilateral, no rhonchi, no rales , no accessory muscle use Ext: no gross muscle atrophy, no edema, no contractures Neuro: no focal neuro deficits Psych: Alert, oriented, appropriate affect Based on my assessment of this patient, this patient meets a high complexity level of care. Intractable back pain: CT + MRI L spine as above. Pain control with Tylenol, [place] PRN. Fall precautions. PT and OT consult. Orthospine on board. Pain management consulted. Stage IV bladder cancer: Follows with Dr. Walker. Undergoing treatment with Padcev every 2 weeks. Leukopenia and Macrocytic anemia in the setting of malignancy and chemotherapy. Acute kidney injury: Renal US no hydronephrosis. Likely obstructive. Improved with [place] catheter. Voiding trial when more mobile. Hypertension: Coreg 6.25 mg PO BID. Holding Losartan for now. Diabetes mellitus: Levemir 25 units QD. ISS. Accuchecks ACHS. Hypoglycemic precautions. Seizure disorder: Keppra 500 mg PO BID. HLD: Pravachol 20 mg PO QHS. Resolved: HyperK Plans for PT and OT evaluation. May also benefit from Pain management consult. Orthospine also on board. Likely DC in 1-2 days, home versus SNF. CODE STATUS: DVT Prophylaxis: Heparin SQ GI Prophylaxis: Designated medical POA if patient is not able to make medical decisions for themselves: I have reviewed the following microsoft dynamics ax consultant notes: Ortho note. I have reviewed the results of the following tests: MRI L spine. I have ordered the following tests: I have discussed the care of this patient with the following independent historian: Valorie HELLER I have independently interpreted the following test below: I have discussed the management of this patient with the following physician: Objective - Vital Signs Vital signs: Vital Signs Temp 98.3 F 07/20/24 01:57 Pulse 71 07/20/24 01:57 Resp 16 07/20/24 01:57 BP 99/63 07/20/24 01:57 Pulse Ox 98 07/20/24 01:57 FiO2 Intake & Output 07/19/24 07/20/24 07/20/24 18:59 06:59 18:59 Intake Total 790 Output Total 701 1800 Balance -701 -1010 Weight 105 kg 108 kg Intake: Oral 790 Output: Urine 700 1800 Stool 1 Other: Voiding Method Indwelling Catheter Indwelling Catheter # Bowel Movements 1 - Labs CBC & Chem 7: 07/19/24 06:40 07/19/24 06:40 Labs: Abnormal Lab Results - Last 24 Hours (Table) 07/19/24 07/19/24 07/20/24 Range/Units 12:24 20:20 07:18 POC Glucose (mg/dL) 120 H 174 H 124 H (70-110) mg/dL
[2024-07-20 17:28] LABS: Glucose,Whole Blood 129 mg/dL (70-110)
[2024-07-20 19:55] LABS: Glucose,Whole Blood 173 mg/dL (70-110)
[2024-07-21 07:16] LABS: Glucose,Whole Blood 128 mg/dL (70-110)
[2024-07-21 12:21] LABS: Glucose,Whole Blood 141 mg/dL (70-110)
--- NOTE | 2024-07-21 13:20 | P.PN ---
Subjective Progress Note Date: 07/21/24 Principal diagnosis: 69-year-old female with PMH of diabetes mellitus, hypertension, osteoarthritis, seizure disorder, sleep apnea, thyroid disorder, vascular disease, heart failure and history of breast cancer in 2016, bladder cancer in 2017 with recurrence in with distant metastases to the bones and brain. She presents to the emergency department following a fall and subsequent right-sided hip and low back pain. She fell yesterday while using the restroom. She states she had a sharp pain in her back which caused her to sit on the floor after using the restroom. She denies hitting her head or any loss of consciousness. She denies loss of bladder or bowel continence. BP 102/63, HR 88, RR 18, SpO2 90% on RA. CBC and CMP significant for RBC 3.52, MCV 103.3, Na 136, K 5.2, BUN 43, Cr 2, glu 122, AST 52, ALT 42. Urinalysis large LE, 10 urine RBC, 53 urine WBC. Respiratory panel negative. Right hip XRay showed no acute fracture or dislocation. Lumbar spine CT showed marked DJD from L2-S1; mild to moderate spinal stenosis at the L2-3 and L3-4 levels; bilateral bony neural foraminal encroachment, severe at the L5-S1 level on the left. Orthospine consulted, MRI L spine ordered showing severe disc desiccation with posterior disc bulge resulting in mild central stenosis L2L3 + mod-severe L3L4, L4L5, L5S1. 07/21: Spoke to patient and . She has about 5 steps to enter her house. is concerned that she may not be able to enter her house safely. Objective - Vital Signs Vital signs: Vital Signs Temp 97.8 F 07/21/24 12:12 Pulse 73 07/21/24 12:12 Resp 16 07/21/24 12:12 BP 124/72 07/21/24 12:12 Pulse Ox 97 07/21/24 12:12 FiO2 Intake & Output 07/20/24 07/21/24 07/21/24 18:59 06:59 18:59 Intake Total 120 1180 Output Total 601 901 Balance -481 279 Weight 105 kg Intake: Oral 120 1180 Output: Urine 600 900 Stool 1 1 Other: Voiding Method Indwelling Catheter Indwelling Catheter Indwelling Catheter # Bowel Movements 1 1 - Exam General: non toxic, no distress, appears at stated age Derm: warm, dry Head: atraumatic, normocephalic, symmetric Eyes: EOMI, no lid lag, anicteric sclera Mouth: no lip lesion, mucus membranes moist Cardiovascular: S1S2 reg, no murmur Lungs: CTA bilateral, no rhonchi, no rales , no accessory muscle use Ext: no gross muscle atrophy, no edema, no contractures Neuro: no focal neuro deficits Psych: Alert, oriented, appropriate affect - Labs CBC & Chem 7: 07/19/24 06:40 07/19/24 06:40 Labs: Abnormal Lab Results - Last 24 Hours (Table) 07/20/24 07/20/24 07/21/24 Range/Units 17:27 19:53 07:14 POC Glucose (mg/dL) 129 H 173 H 128 H (70-110) mg/dL 07/21/24 Range/Units 12:15 POC Glucose (mg/dL) 141 H (70-110) mg/dL Assessment and Plan Assessment: Intractable back pain: CT + MRI L spine as above. Orthospine had recommended conservativement management at this time. Pain control with Tylenol, [place] PRN. Fall precautions. PT/OT evaluation. suspect she will need rehab placement Stage IV bladder cancer: Follows with Dr. Walker. Undergoing treatment with Padcev every 2 weeks. Leukopenia and Macrocytic anemia in the setting of malignancy and chemotherapy. Acute kidney injury: Renal US no hydronephrosis. possibly post renal. remove barber catheter and perform TOV Hypertension: Coreg 6.25 mg PO BID. Holding Losartan for now given hyperKalemia Diabetes mellitus: Levemir 25 units QD. ISS. Accuchecks ACHS. Hypoglycemic precautions. Seizure disorder: Keppra 500 mg PO BID. HLD: Pravachol 20 mg PO QHS. hyperkalemia, resolved. may consider restart losartan tomorrow Time with Patient: Less than 30
--- NOTE | 2024-07-21 16:40 | P.PAINPG ---
Objective - Vital Signs Vital signs: Vital Signs Temp 97.8 F 07/21/24 12:12 Pulse 73 07/21/24 12:12 Resp 16 07/21/24 12:12 BP 124/72 07/21/24 12:12 Pulse Ox 97 07/21/24 12:12 FiO2 Intake & Output 07/20/24 07/21/24 07/21/24 18:59 06:59 18:59 Intake Total 120 1180 Output Total 601 901 300 Balance -481 279 -300 Weight 105 kg Intake: Oral 120 1180 Output: Urine 600 900 300 Stool 1 1 Other: Voiding Method Indwelling Catheter Indwelling Catheter Indwelling Catheter # Bowel Movements 1 1 - Labs CBC & Chem 7: 07/19/24 06:40 07/19/24 06:40 Labs: Abnormal Lab Results - Last 24 Hours (Table) 07/20/24 07/20/24 07/21/24 Range/Units 17:27 19:53 07:14 POC Glucose (mg/dL) 129 H 173 H 128 H (70-110) mg/dL 07/21/24 Range/Units 12:15 POC Glucose (mg/dL) 141 H (70-110) mg/dL PQRS Measure Charge Sheet Comment: HISTORY OF PRESENT ILLNESS: A 69 yr old female w male significant other at side as a referral from Dr Borrego presents today w severe acute LBP secondary to L2-L4 moderate spinal stenosis, L3-S1 sever spondylosis and disc collapse for evaluation. Pt states pain level is provoked at 9 /10 in intensity, constant, localized in the lumbar spine, predominantly axial, sharp in character w occasional shooting pain towards the LEs. Pain is provoked by any movement. Pain is alleviated by medications (Mckenzie 5/325mg q6h prn , ASA), THC use, use of a cane for ambulatory assistance, repositioning and rest . PMH: OA, Breast CA (2016), CHF, NIDDM II, HTN, Neurologic Disorder, Osteoarthritis (OA), Seizure Disorder, JIMENA, Hypothyroidism, PVD, Anxiety PSH: Bladder Surgery, L Breast Masectomy, Cholecystectomy, BL Knee Replacement, R Knee Arthroscopy, Tonsillectomy, CTR, R Wrist Cystectomy, Colonoscopy SH: Former tobacco user, Rare ETOH use, Hx of Cannabis use FH: Fa- CAD. Mo- MS All: See list Meds: See list REVIEW OF ORGAN SYSTEMS: CONSTITUTIONAL: No fevers or chills. No recent weight loss. NEUROLOGICAL: + numbness and tingling along the distal extremities. No seizure disorders or headaches. MUSCULOSKELETAL: + pain PSYCHIATRIC: Denies current depression or suicidal thoughts. Physical Examinations : Constitutional : Cooperative , not in acute distress . Neurologic : Cranial nerve II to XII intact. No focal neurological deficits. Psychiatric : alert & oriented x 3. Matching mood & appropriate affect. Judgment & insight intact. Musculoskeletal : Cervical Spine Motor strength in the deltoid and biceps: Normal right side. Normal Left side Motor strength biceps and the wrist extensors: Normal right side . Normal left side Motor strength in the triceps muscle: Normal right side. Normal left side Deep tendon reflexes: Normal at the biceps. Normal at Brachioradialis. Normal at triceps Vertebral body tenderness to deep palpation over Cervical facet loading test: positive bilaterally Spurling test: positive bilaterally Neck distraction test: positive bilaterally [place] sign: positive bilaterally Lumbar spine Motor strength lower extremities ,thigh and legs 5/5 Right side , 5/5 Left side Deep tendon reflexes : Normal Knee Jerk. Normal Ankle Jerk Vertebral body tenderness over [place] Test positive Lumbar facet Loading Test: positive Right / positive Left Range of motion of the lumbar spine Flexion 30 degrees, extension 10 degrees Straight Leg Raise test: Left/ Right p ositive at degrees Soo test: positive right / positive left. Severe tenderness over the Sacroiliac joint on the Right / Left sides Gaenslen test: positive bilaterally Seated flexion test: positive bilaterally. Sacral spine : Severe tenderness over the Sacroiliac joint: right side / left side Range of motion: Flexion of the lumbar spine <60 degrees Range of motion: Extension of the lumbar spine <20 degrees Gaenslen's Test positive Soo test: positive right side / left side Thigh Thrust Test Sacral Thrust Test Imaging: CT non contrast lumbar spine from 07/17/24 reviewed MRI non contrast lumbar spine from 07/19/24 reviewed Assessment/ Plan : L3-S1 severe spondylosis w disc collapse, Recommendation of medication management. Discontinue home use of Mckenzie and replace with Percocet 10mg #18 NR. Use, side effects, adverse reactions, safe storage discussed. Pt and blue crabber at side acknowledged understanding. Continuing in-house PT. All questions answered. I have spent greater than 30 minutes on patient care today. Dr Tucker was available by phone for the evaluation of this patient. The time was used to review the medical records including relevant urine studies and Prescription h istory (MAPs), review of the available imaging, evaluation and examination of the patient, coordination of care with the medical staff and if applicable referring physicians, as well as creation of the medical record - Pain Location Buttock Non-Pharmacological Interventions: Position/Reposition Pharmacological Interventions: Discuss Pain Med Options PQRS Narrative: Smoking Status Former smoker Blood Pressure [Right Arm] 124/72 Blood Pressure 110/68 Pain Intensity [Buttock] 0 Pain Intensity 2 Pain Scale Used Numeric (1 - 10) Scale Used Numeric (1 - 10) Home Medications: Ambulatory Orders Aspirin EC [Ecotrin Low Dose] 81 mg PO QAM 02/16/21 Losartan Potassium 100 mg PO QAM 02/16/21 Magnesium Oxide [Mag-Ox] 400 mg PO BID 03/28/23 carvediloL [Coreg] 6.25 mg PO BID 01/09/24 hydroCHLOROthiazide 25 mg PO QAM 01/09/24 levETIRAcetam [Keppra] 500 mg PO BID 01/09/24 Biotin [Biotin Disolve] 10,000 mcg PO DAILY 07/17/24 Diphenoxylate HCl/Atropine [Lomotil 2.5-0.025 mg Tablet] 1 tab PO TID PRN 07/17/24 Insulin Aspart [NovoLOG] 11 units SQ AC-TID 07/17/24 Insulin Glargine,Hum.rec.anlog [Basaglar Kwikpen U-100] 24 unit SQ DAILY 07/17/24 Latanoprost [Latanoprost 0.005%] 1 drop BOTH EYES HS 07/17/24 Padcev 90 mg IV DIRECTED 07/17/24 Potassium Chloride [Klor-Con M10] 10 meq PO BID 07/17/24 Pravastatin Sodium [Pravachol] 20 mg PO HS 07/17/24 Super B Complex 1 tab PO DAILY 07/17/24 Controlled Substance Measures - Controlled Substance Measures Is patient prescribed a controlled substance at discharge?: Yes When asked, does pt state using other controlled substances?: Yes If prescribed controlled substance>3 days was MAPS reviewed?: Prescribed <3 Days
[2024-07-21 16:53] LABS: Glucose,Whole Blood 122 mg/dL (70-110)
[2024-07-21 20:08] LABS: Glucose,Whole Blood 166 mg/dL (70-110)
[2024-07-22 07:24] LABS: Glucose,Whole Blood 121 mg/dL (70-110)
[2024-07-22 08:01] VITALS: PULSE 78
[2024-07-22 12:16] LABS: Glucose,Whole Blood 124 mg/dL (70-110)
--- NOTE | 2024-07-22 15:09 | P.DS ---
Providers Date of admission: 07/20/24 08:36 Attending physician: Aj HERNANDEZ MD Consults: 07/18/24 16:23 Consult Physician Routine Consulting Provider: Haider Oswald Consult Reason/Comments: back pain, mild-mod lumbar stenosis Do you want consulting provider notified?: Yes Primary care physician: [facility] Course: 69-year-old female with PMH of diabetes mellitus, hypertension, osteoarthritis, seizure disorder, sleep apnea, thyroid disorder, vascular disease, heart failure and history of breast cancer in 2016, bladder cancer in 2017 with recurrence in with distant metastases to the bones and brain. She presents to the emergency department following a fall and subsequent right-sided hip and low back pain. She fell yesterday while using the restroom. She states she had a sharp pain in her back which caused her to sit on the floor after using the restroom. She denies hitting her head or any loss of consciousness. She denies loss of bladder or bowel continence. BP 102/63, HR 88, RR 18, SpO2 90% on RA. CBC and CMP significant for RBC 3.52, MCV 103.3, Na 136, K 5.2, BUN 43, Cr 2, glu 122, AST 52, ALT 42. Urinalysis large LE, 10 urine RBC, 53 urine WBC. Respiratory panel negative. Right hip XRay showed no acute fracture or dislocation. Lumbar spine CT showed marked DJD from L2-S1; mild to moderate spinal stenosis at the L2-3 and L3-4 levels; bilateral bony neural foraminal encroachment, severe at the L5-S1 level on the left. Orthospine consulted, MRI L spine ordered showing severe disc desiccation with posterior disc bulge resulting in mild central stenosis L2L3 + mod-severe L3L4, L4L5, L5S1. 07/21: Spoke to patient and . She has about 5 steps to enter her house. is concerned that she may not be able to enter her house safely. Objective - Vital Signs Vital signs: Vital Signs Temp 97.8 F 07/21/24 12:12 Pulse 73 07/21/24 12:12 Resp 16 07/21/24 12:12 BP 124/72 07/21/24 12:12 Pulse Ox 97 07/21/24 12:12 FiO2 Intake & Output 07/20/24 07/21/24 07/21/24 18:59 06:59 18:59 Intake Total 120 1180 Output Total 601 901 Balance -481 279 Weight 105 kg Intake: Oral 120 1180 Output: Urine 600 900 Stool 1 1 Other: Voiding Method Indwelling Catheter Indwelling Catheter Indwelling Catheter # Bowel Movements 1 1 - Exam General: non toxic, no distress, appears at stated age Derm: warm, dry Head: atraumatic, normocephalic, symmetric Eyes: EOMI, no lid lag, anicteric sclera Mouth: no lip lesion, mucus membranes moist Cardiovascular: S1S2 reg, no murmur Lungs: CTA bilateral, no rhonchi, no rales , no accessory muscle use Ext: no gross muscle atrophy, no edema, no contractures Neuro: no focal neuro deficits Psych: Alert, oriented, appropriate affect - Labs CBC & Chem 7: 07/19/24 06:40 07/19/24 06:40 Labs: Abnormal Lab Results - Last 24 Hours (Table) 07/20/24 07/20/24 07/21/24 Range/Units 17:27 19:53 07:14 POC Glucose (mg/dL) 129 H 173 H 128 H (70-110) mg/dL 07/21/24 Range/Units 12:15 POC Glucose (mg/dL) 141 H (70-110) mg/dL Assessment and Plan Assessment: Intractable back pain: CT + MRI L spine as above. Orthospine had recommended conservativement management at this time. Pain control with Tylenol, [place] PRN. Fall precautions. PT/OT evaluation. suspect she will need rehab placement Stage IV bladder cancer: Follows with Dr. Walker. Undergoing treatment with Padcev every 2 weeks. Leukopenia and Macrocytic anemia in the setting of malignancy and chemotherapy. Acute kidney injury: Renal US no hydronephrosis. possibly post renal. remove barber catheter and perform TOV Hypertension: Coreg 6.25 mg PO BID. Holding Losartan for now given hyperKalemia Diabetes mellitus: Levemir 25 units QD. ISS. Accuchecks ACHS. Hypoglycemic precautions. Seizure disorder: Keppra 500 mg PO BID. HLD: Pravachol 20 mg PO QHS. hyperkalemia, resolved. may consider restart losartan tomorrow -Patient is cleared to go home with home health, is not requiring any placement -Pain management evaluated the patient, she can go home on Percocet 10, prescription has been ordered -Stable for discharge from my standpoint Time with Patient: Less than 30 Patient Condition at Discharge: Fair Plan - Discharge Summary Discharge Rx Participant: No New Discharge Prescriptions: New oxyCODONE HCL/ACETAMINOPHEN [Percocet 10-325 mg] 1 tab PO Q4HR PRN 3 Days #18 tab PRN Reason: Pain No Action Aspirin EC [Ecotrin Low Dose] 81 mg PO QAM Magnesium Oxide [Mag-Ox] 400 mg PO BID carvediloL [Coreg] 6.25 mg PO BID levETIRAcetam [Keppra] 500 mg PO BID Padcev 90 mg IV DIRECTED Pravastatin Sodium [Pravachol] 20 mg PO HS Latanoprost [Latanoprost 0.005%] 1 drop BOTH EYES HS Diphenoxylate HCl/Atropine [Lomotil 2.5-0.025 mg Tablet] 1 tab PO TID PRN PRN Reason: Diarrhea Biotin [Biotin Disolve] 10,000 mcg PO DAILY Losartan Potassium 100 mg PO QAM hydroCHLOROthiazide 25 mg PO QAM Super B Complex 1 tab PO DAILY Potassium Chloride [Klor-Con M10] 10 meq PO BID Insulin Glargine,Hum.rec.anlog [Basaglar Kwikpen U-100] 24 unit SQ DAILY Insulin Aspart [NovoLOG] 11 units SQ AC-TID Discharge Medication List Aspirin EC [Ecotrin Low Dose] 81 mg PO QAM 02/16/21 [History] Losartan Potassium 100 mg PO QAM 02/16/21 [History] Magnesium Oxide [Mag-Ox] 400 mg PO BID 03/28/23 [History] carvediloL [Coreg] 6.25 mg PO BID 01/09/24 [History] hydroCHLOROthiazide 25 mg PO QAM 01/09/24 [History] levETIRAcetam [Keppra] 500 mg PO BID 01/09/24 [History] Biotin [Biotin Disolve] 10,000 mcg PO DAILY 07/17/24 [History] Diphenoxylate HCl/Atropine [Lomotil 2.5-0.025 mg Tablet] 1 tab PO TID PRN 07/17/24 [History] Insulin Aspart [NovoLOG] 11 units SQ AC-TID 07/17/24 [History] Insulin Glargine,Hum.rec.anlog [Basaglar Kwikpen U-100] 24 unit SQ DAILY 07/17/24 [History] Latanoprost [Latanoprost 0.005%] 1 drop BOTH EYES HS 07/17/24 [History] Padcev 90 mg IV DIRECTED 07/17/24 [History] Potassium Chloride [Klor-Con M10] 10 meq PO BID 07/17/24 [History] Pravastatin Sodium [Pravachol] 20 mg PO HS 07/17/24 [History] Super B Complex 1 tab PO DAILY 07/17/24 [History] oxyCODONE HCL/ACETAMINOPHEN [Percocet 10-325 mg] 1 tab PO Q4HR PRN 3 Days #18 tab 07/21/24 [Rx] Follow up Appointment(s)/Referral(s): Bry Silverio DO [Primary Care Provider] - 1-2 days Haider Oswald DO [Doctor of Osteopathic Medicine] - As Needed Patient Instructions/Handouts: Lumbar Spinal Stenosis (GEN) Discharge Disposition: HOME WITH HOME HEALTH SERVICES
[2024-07-22 15:33] VITALS: BMI 36.6
[2024-07-22 15:51] VITALS: BP 112/67; RESP 18; TEMP 97.3
== END 2024-07-22 17:22 | disposition home health service (06) | DRG 552 ==
LOC: EC 10:13 → 6NMEDSUR 19:25 → 5NMEDONC 07-18 06:00 → OBSVTOIN 07-20 08:36
PROVIDERS: ADMIT Student in an Organized Health Care Education/Training Program; ATTEND Student in an Organized Health Care Education/Training Program
DX: M48.061 Spinal stenosis, lumbar region without neurogenic claudication (principal); N17.9 Acute kidney failure, unspecified; C79.51 Secondary malignant neoplasm of bone; C79.31 Secondary malignant neoplasm of brain; M47.26 Other spondylosis with radiculopathy, lumbar region; M51.17 Intervertebral disc disorders with radiculopathy, lumbosacral region; M25.551 Pain in right hip; W19.XXXA Unspecified fall, initial encounter; C67.9 Malignant neoplasm of bladder, unspecified; R33.9 Retention of urine, unspecified; I50.9 Heart failure, unspecified; I11.0 Hypertensive heart disease with heart failure; G40.909 Epilepsy, unspecified, not intractable, without status epilepticus; E78.5 Hyperlipidemia, unspecified; E11.51 Type 2 diabetes mellitus with diabetic peripheral angiopathy without gangrene; D53.9 Nutritional anemia, unspecified; D63.0 Anemia in neoplastic disease; M19.90 Unspecified osteoarthritis, unspecified site; Z79.899 Other long term (current) drug therapy; D72.819 Decreased white blood cell count, unspecified; E87.5 Hyperkalemia; E03.9 Hypothyroidism, unspecified; F41.9 Anxiety disorder, unspecified; I25.10 Atherosclerotic heart disease of native coronary artery without angina pectoris; M41.9 Scoliosis, unspecified; Z79.4 Long term (current) use of insulin; Z79.82 Long term (current) use of aspirin; Z79.84 Long term (current) use of oral hypoglycemic drugs; Z85.51 Personal history of malignant neoplasm of bladder; Z85.3 Personal history of malignant neoplasm of breast; Z87.891 Personal history of nicotine dependence; Z90.12 Acquired absence of left breast and nipple; Z92.21 Personal history of antineoplastic chemotherapy; Z96.653 Presence of artificial knee joint, bilateral; Z79.890 Hormone replacement therapy; Z88.0 Allergy status to penicillin; Z90.49 Acquired absence of other specified parts of digestive tract; Z91.030 Bee allergy status; Z88.5 Allergy status to narcotic agent
CPT/HCPCS: 36415; 51701; 51798; 72131; 72148; 73502; 76770; 80048; 80053; 81001; 83735; 85025; 85027; 87086; 96372; 99285

== ENCOUNTER → 2024-07-23 | Outpatient (CLI) | payer MEDICARE ==
--- NOTE | 2024-07-23 19:42 | US ---
EXAMINATION TYPE: US bladder DATE OF EXAM: 07/23/2024 COMPARISON: 07/17/24 CLINICAL INDICATION: Female, 69 years old with history of C67.9 Bladder cancer; hx of bladder cancer TECHNIQUE: Grayscale and color doppler imaging of the bilateral kidneys and urinary bladder. FINDINGS: EXAM MEASUREMENTS: Post Void Residual Volume: 91.2 mL [place] TRAWL NET NOTES: anechoic bladder, possible thickened wall Color Doppler performed to assess ureteral jets. Bilateral Jets seen: No Normal Post Void Residual (less than 50ml): 16 mL IMPRESSION: 16 mL postvoid residual. Thickened bladder bradley which could be consistent with patient's history of bladder cancer. If there is concern for recurrent bladder cancer consider delayed imaging CT or direc t visualization. [facility], , 07/23/2024 7:39 PM
== END | disposition home or self-care (01) ==
LOC: RADUSWWP 15:54
PROVIDERS: ATTEND Family Medicine
DX: C67.9 Malignant neoplasm of bladder, unspecified (principal); R39.198 Other difficulties with micturition; Z85.51 Personal history of malignant neoplasm of bladder
CPT/HCPCS: 76857

== ENCOUNTER → 2024-07-25 | Outpatient (CLI) | payer MEDICARE ==
[2024-07-25 14:00] LABS: Appearance,Urine Cloudy (Clear); Bilirubin,Urine Negative (Negative); Blood,Urine Negative (Negative); Color,Urine Light Yellow; Glucose,Urine (UA) Negative (Negative); Hyaline Casts,Urine 4 /lpf (0-2); Ketones,Urine Negative (Negative); Leukocyte Esterase,Urine Moderate (Negative); Mucus,Urine Rare /hpf; Nitrite,Urine Negative (Negative); PH, Urine 5.5 (5.0-8.0); Protein,Urine Negative (Negative); RBC,Urine 4 /hpf (0-5); Specific Gravity,Urine 1.015 (1.001-1.035); Squamous Epithelial Cell,Urine 2 /hpf (0-4); Urobilinogen,Urine <2.0 mg/dL (<2.0); WBC,Urine 91 /hpf (0-5)
== END | disposition home or self-care (01) ==
LOC: LABWHC1 12:41
PROVIDERS: ATTEND Internal Medicine
DX: C67.9 Malignant neoplasm of bladder, unspecified (principal)
CPT/HCPCS: 81001; 87086

== ENCOUNTER → 2024-08-11 | Outpatient (CLI) | payer MEDICARE, BC ==
[2024-08-11 12:20] LABS: African American GFR (CKD) >90 (>60 ml/min/1.73 sqM); Blood Urea Nitrogen 13 mg/dL (7-17); Non-African American GFR(CKD) >90 (>60 ml/min/1.73 sqM)
--- NOTE | 2024-08-11 14:33 | CT ---
EXAMINATION TYPE: CT ChestAbdPelvis w con DATE OF EXAM: 08/11/2024 COMPARISON: 05/12/2024 HISTORY: BLADDER CA CT DLP: [id number] mGycm Automated exposure control for dose reduction was used. CONTRAST: CT scan of the chest, abdomen and pelvis is performed with Oral Contrast and with IV Contrast, patien t injected with 100 mL of Isovue 300. FINDINGS: CT chest: There is a stable 10.7 mm groundglass density in the right upper lobe. There is no new lung mass. The re is no airspace consolidation or density. There is no pleural effusion or pneumothorax The great vessels and chest are normal there is no mediastinal, hilar or axillary adenopathy. No focal osseous lesions are seen. CT abdomen and pelvis: There is surgical absence of the gallbladder. There is no biliary ductal dilatation. There is mild fatty infiltration of liver but no focal liver mass. There is no focal mass or enlargem ent of the pancreas or spleen. There is stable marked nodularity of the left adrenal gland. The retroperitoneal adenopathy seen on the prior study has completely resolved the interval. The bowel loops are normal in caliber and there is no dilatation or obstruction... There is no solid renal mass or hydronephrosis. There is no free intracranial air or fluid. There is a bulky fibroid uterus with a calcified fibroid unchanged compared to the prior study. There is a stable sclerotic lesion in the T10 vertebral segment likely metastatic lesion. There is no path ologic fracture. No new osseous abnormalities are seen. Soft tissue the abdomen and pelvis are normal. There is marked degenerative disc disease from L2 thro ugh S1. IMPRESSION: 1. No change in the groundglass opacity in the right upper lobe. No new abnormalities within the thor ax. 2. No retroperitoneal adenopathy. 3. Stable sclerotic lesion in T10 without pathologic fracture. 4. Stable fibroid uterus. [facility], , 08/11/2024 2:30 PM
== END | disposition home or self-care (01) ==
LOC: RADCTMAIN 11:32
PROVIDERS: ATTEND Internal Medicine Hematology & Oncology
DX: C67.9 Malignant neoplasm of bladder, unspecified (principal); C79.51 Secondary malignant neoplasm of bone; R19.7 Diarrhea, unspecified; D09.0 Carcinoma in situ of bladder; Z71.3 Dietary counseling and surveillance; D25.9 Leiomyoma of uterus, unspecified; Z90.49 Acquired absence of other specified parts of digestive tract
CPT/HCPCS: 82565; 84520; 71260; 74177; 36415; Q9967

== ENCOUNTER → 2024-08-29 | Outpatient (CLI) | payer MEDICARE, BC ==
--- NOTE | 2024-08-29 15:28 | XR ---
EXAMINATION TYPE: XR hand complete RT DATE OF EXAM: 08/29/2024 COMPARISON: NONE CLINICAL INDICATION: Female, 69 years old with history of M79.644 PAIN IN RIGHT FINGER(S); TECHNIQUE: 3 views FINDINGS: There is severe, [id number] degenerative change at the radiocarpal, ulnocarpal, and dista l radioulnar joints. There is proximal migration of the capitate. The lunate is not well seen due to extensive overlap of bones. Moderate degenerative change first CMC joint. Soft tissue swelling about the wrist. Otherwise, no acute fracture within the fingers. 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 Involvement includes the rad iocarpal, ulnocarpal, and distal radioulnar joints. [facility], , 08/29/2024 3:26 PM
== END | disposition home or self-care (01) ==
LOC: RADXRMAIN 13:07
PROVIDERS: ATTEND Internal Medicine
DX: M19.041 Primary osteoarthritis, right hand (principal)

== ENCOUNTER → 2024-09-04 | Outpatient (CLI) | payer MEDICARE, BC ==
--- NOTE | 2024-09-04 15:41 | MR ---
EXAMINATION TYPE: MR brain wo/w con DATE OF EXAM: 09/04/2024 12:02 PM COMPARISON: 06/04/2024 CLINICAL INDICATION: Female, 69 years old with history of C79.31,C77.5, Brain Ca, Neoplasm of lymph n odes IV Contrast: 10 cc Gadobutrol (None if empty) TECHNIQUE: Multiplanar, multisequence images of the brain and brainstem were acquired before and aft er administration of 10 mL IV Gadobutrol. Diffusion weighted imaging is performed. FINDINGS: [id number] cerebral cortical volume loss with secondary mild prominence to the ventricular syst em. No midline shift or effacement of cerebral sulci sized basal subarachnoid cisterns. No extra axial fl uid collection is seen. Scattered foci of susceptibility along the harris-white matter increases throughout both cerebral hemis pheres likely related to sites of previous treated metastases and chronic hemosiderin deposition Tiny 4 mm focus of enhancement right parietal cortex. Tiny 3 mm focus left parietal cortex. Tiny 3 mm focus of enhancement left temporal parietal junction, axial image 79. Small associated areas of vasogenic edema and some susceptibility artifact. No other abnormal enhancing lesion is seen. Scattered patchy right white matter change relating to underlying chronic small vessel ischemic disea se and sites of previous treated metastases. Mild mucosal thickening ethmoid air cells. Globes are intact. IMPRESSION: 1. 3 new enhancing cortical lesions corresponding to small hemorrhagic metastases, one within each an terior parietal lobe and one at the left temporoparietal junction. These lesions measure up to 4 mm a nd have small amount of local vasogenic edema. 2. Other areas of susceptibility and gliosis relating to sites of previously treated hemorrhagic meta stases are similar. 3. No other acute intracranial abnormality seen. [facility], , 09/04/2024 3:38 PM
== END | disposition home or self-care (01) ==
LOC: RADMRIMAIN 11:00
PROVIDERS: ATTEND Radiology Radiation Oncology
DX: C79.31 Secondary malignant neoplasm of brain (principal); C77.5 Secondary and unspecified malignant neoplasm of intrapelvic lymph nodes
CPT/HCPCS: 70553; A9585

== ENCOUNTER 2024-10-29 06:16 | Day surgery (SDC) | payer MEDICARE, BC ==
[2024-10-24 16:32] VITALS: BMI 36.6
[~2024-10-29 06:16] MED LIST changes: -ACETAMINOPHEN TAB 500 MG TAB PO PRN; -DEXAMETHASONE SOD PHOSPHATE 4 MG/ML 1 ML VIAL IV ONE; -HEPARIN SODIUM,PORCINE/PF 5,000 UNIT/0.5 ML SYRINGE SQ PRN; -LACTATED RINGERS 1,000 ML IV SCH; +LIDOCAINE 1% (10MG/ML) FOR IV START INTRADERMA PRN; -MIDAZOLAM 2 MG/2 ML VIAL IV PRN; -ONDANSETRON 4 MG/2 ML VIAL IVP ONE; -Pre Op ABX Message 1 EACH MISC MISCELLANE ONE; -fentaNYL (PF) 50 MCG/ML 2 ML AMP IV PRN
[2024-10-29] MEDS ORDERED: fentaNYL (PF) 50 MCG/ML 2 ML AMP IV PRN (07:00)
[2024-10-29 07:01] VITALS: RESP 16; TEMP 96.9
[2024-10-29] MEDS: IV FLUID CONTINUATION 1,000 ML IV ONE (07:10)
[2024-10-29] MEDS: LACTATED RINGERS 1,000 ML IV SCH (07:10)
[2024-10-29] MEDS: ONDANSETRON 4 MG/2 ML VIAL IVP ONE (07:19)
[2024-10-29 07:21] LABS: Glucose,Whole Blood 103 mg/dL (70-110)
[2024-10-29] MEDS: BUPIVACAINE (PF) 0.25% 30 ML VIAL SQ ONE ×3 (07:29→07:53)
[2024-10-29] MEDS ORDERED: PROPOFOL 10 MG/ML 20 ML VIAL IV ONE (07:35)
[2024-10-29] MEDS ORDERED: MIDAZOLAM 2 MG/2 ML VIAL ONE (07:35)
[2024-10-29] MEDS ORDERED: fentaNYL (PF) 50 MCG/ML 2 ML AMP ONE (07:35)
[2024-10-29] MEDS ORDERED: diphenhydrAMINE 50 MG/ML 1 ML VIAL ONE (07:35)
--- NOTE | 2024-10-29 08:31 | P.OP ---
Date of Procedure: 10/29/24 Preoperative Diagnosis: History of bladder cancer Postoperative Diagnosis: History of bladder cancer Procedure(s) Performed: Mediport removal Anesthesia: MAC Surgeon: Dayton Smallwood Pathology: none sent Condition: stable Disposition: same day Indications for Procedure: 69-year-old female with history of bladder cancer presents for Mediport removal. She states that the Mediport was placed over a year ago and has not been functional. She is not currently requiring chemotherapy and has requested tomer davon. Risks, benefits and alternatives were provided to the patient. Operative Findings: Intact Mediport and catheter Description of Procedure: Was brought to the operating suite and placed in supine position on the operative table. Sedation was provided by anesthesia and patient was prepped and draped in regular sterile fashion. Local anesthetic was administered. Incision was made over previous scar site and dissection was carried towards the Mediport. The Mediport hub was grasped and dissection was carried with cautery to free the Mediport from the surrounding capsule. Once Mediport was removed in its entirety a [id number] 3-0 Vicryl suture was placed around the catheter introduction site and was tightened down as the catheter was pulled. The port and catheter appeared intact. Hemostasis was maintained with cautery. Irrigation was placed in the wound. Wound was then closed in layers with 3-0 Vicryl and 4-0 Vicryl subcuticular suture. Sterile dressing was applied. The patient was awakened in the operating suite and taken to postanesthesia care unit in stable condition.
[2024-10-29 08:46] VITALS: BP 120/66; PULSE 62
[2024-10-29 08:46] LABS: Glucose,Whole Blood 99 mg/dL (70-110)
== END 2024-10-29 09:00 | disposition home or self-care (01) ==
LOC: OR 06:16
PROVIDERS: ATTEND Surgery
DX: Z45.2 Encounter for adjustment and management of vascular access device (principal); I10 Essential (primary) hypertension; M06.9 Rheumatoid arthritis, unspecified; Z88.1 Allergy status to other antibiotic agents; Z88.8 Allergy status to other drugs, medicaments and biological substances; Z85.51 Personal history of malignant neoplasm of bladder; Z88.5 Allergy status to narcotic agent; Z87.891 Personal history of nicotine dependence; Z79.899 Other long term (current) drug therapy
CPT/HCPCS: 36590; J2250; J1200; J0690; J2405; J3010; J2704; J0665

== ENCOUNTER → 2024-11-03 | Outpatient (CLI) | payer MEDICARE, BC ==
[2024-11-03 12:23] LABS: African American GFR (CKD) >90 (>60 ml/min/1.73 sqM); Blood Urea Nitrogen 15 mg/dL (7-17); Non-African American GFR(CKD) >90 (>60 ml/min/1.73 sqM)
--- NOTE | 2024-11-03 14:59 | CT ---
EXAMINATION TYPE: CT ChestAbdPelvis wo con CT DLP: 1263.60 mGycm, Automated exposure control for dose reduction was used. DATE OF EXAM: 11/03/2024 2:53 PM COMPARISON: CT chest abdomen pelvis 08/11/2024, 05/12/2024, 02/11/2024, 11/02/2023, 06/01/2023, CT urogram 11/30/2021, ultrasound bladder 07/23/2024 CLINICAL INDICATION:Female, 69 years old with history of C67.9 BLADDER CANCER; [facility], Technique: Multiple axial images of the chest, abdomen, and pelvis were obtained without the administ ration of intravenous contrast which limits evaluation. Oral contrast was administered. Two-dimension al coronal and sagittal reconstructions were obtained. Findings: CHEST: LUNGS/ PLEURA: Pleural effusion, pneumothorax, focal consolidation. Stable groundglass opacity within the right upper lung measuring up to 1.2 cm (series 5, image 12). No new or enlarging pulmonary nodu les. AIRWAY: Patent and unremarkable.. HEART: Size within normal limits.No pericardial effusion. Mild coronary artery calcifications present . MEDIASTINUM: No gross evidence of adenopathy. VASCULATURE: No aortic aneurysm. Mild atherosclerotic calcification of the aorta and its branches. MUSCULOSKELETAL: No acute osseous abnormalities. Stable anterior T10 vertebral body sclerotic lesion. Right shoulder arthropathy. SOFT TISSUES/LYMPH NODES: Postsurgical changes with removal of right anterior chest wall Mediport cat heter with scarring and a small seroma measuring up to 1.5 cm demonstrated. LOWER NECK: Decreased size of hypodense left thyroid lobe 5 mm nodule. Stable right thyroid lobe subc entimeter 9 mm hypodense nodule. ABDOMEN: ABDOMEN LIVER: Unremarkable noncontrast appearance. GALLBLADDER AND BILE DUCTS: The gallbladder is surgically absent. No biliary duct dilatation. PANCREAS: Unremarkable noncontrast appearance. SPLEEN: Unremarkable noncontrast appearance. ADRENAL GLANDS: Unremarkable noncontrast appearance of the right adrenal gland. Similar nodular thick ening of the left adrenal gland. KIDNEYS AND URETERS: No evidence of hydronephrosis or contrast demonstrated both on both collecting s ystems from prior exam which limits evaluation for the subcentimeter renal calculi. PELVIS BLADDER: Incompletely distended with lack of contrast limits evaluation. No gross evidence of abnorma lity. REPRODUCTIVE: Uterus with lobulated appearance right uterine calcified fibroid measuring up to 3.9 cm . ABDOMEN & PELVIS STOMACH AND BOWEL: Stomach and duodenum are unremarkable. Enteric contrast reaches the mid transverse colon. Few scattered colonic diverticula of the distal colon. No focal bowel wall thickening or surr ounding inflammatory changes. The appendix is within normal limits. No evidence of bowel obstruction. PERITONEUM: No evidence of pneumoperitoneum or free fluid. VASCULATURE: Mild to moderate atherosclerotic calcifications are present throughout the abdominal aor ta and its branches. No abdominal aortic aneurysm. Couple of left-sided pelvic phlebolith. MUSCULOSKELETAL: No acute osseous abnormalities. Moderate multilevel degenerative disc disease of the lumbar spine. No new aggressive osseous lesion. LYMPH NODES: No gross evidence for lymphadenopathy. SOFT TISSUE/ABDOMINAL WALL: Unremarkable IMPRESSION: 1. No change in groundglass nodular opacity within the right upper lobe. No new or enlarging pulmonar y nodules. 2. No pathologically enlarged lymph nodes within the chest, abdomen or pelvis. 3. Stable sclerotic lesion within the T10 vertebral body. No new suspicious osseous lesions. 4. Stable nodularity of the left adrenal gland. 5. Stable fibroid uterus. [facility], , 11/03/2024 2:57 PM
== END | disposition home or self-care (01) ==
LOC: RADCTMAIN 11:26
PROVIDERS: ATTEND Internal Medicine Hematology & Oncology
DX: C67.9 Malignant neoplasm of bladder, unspecified (principal); C79.51 Secondary malignant neoplasm of bone; R19.7 Diarrhea, unspecified; D09.0 Carcinoma in situ of bladder; E27.9 Disorder of adrenal gland, unspecified; D25.9 Leiomyoma of uterus, unspecified
CPT/HCPCS: 36415; 71250; 74176; 82565; 84520

== ENCOUNTER → 2024-11-06 | Outpatient (CLI) | payer MEDICARE, BC ==
--- NOTE | 2024-11-06 11:45 | XR ---
EXAMINATION TYPE: XR shoulder complete BILAT DATE OF EXAM: 11/06/2024 CLINICAL INDICATION: Female, 69 years old with history of M25.511 tracy shoulder pain, pain TECHNIQUE: Three views of the bilateral shoulders are obtained. COMPARISON: None. FINDINGS: Osseous structures are demineralized. No acute displaced fracture in either shoulder is see n. There is vague eccentric sclerosis with cortical thickening in the medial aspect of the left proximal humeral diaphysis. Given patient's history of bladder cancer, osseous metastatic disease needs to be considered. There is mild to moderate narrowing and spurring at both acromioclavicular joints. Glenohumeral joint s are preserved. Visualized ribs are intact. IMPRESSION: As above. Possible osseous metastatic lesion to the left proximal humerus. Advise whole-b katie bone scan follow-up to further evaluate. [facility], , 11/06/2024 11:43 AM
== END | disposition home or self-care (01) ==
LOC: RADXRMAIN 11:04
PROVIDERS: ATTEND Internal Medicine
DX: M25.811 Other specified joint disorders, right shoulder (principal); M89.8X1 Other specified disorders of bone, shoulder; M25.812 Other specified joint disorders, left shoulder

== ENCOUNTER → 2024-12-08 | Outpatient (CLI) | payer MEDICARE, BC ==
--- NOTE | 2024-12-08 15:37 | NM ---
EXAMINATION TYPE: NM bone scan whole body DATE OF EXAM: 12/08/2024 COMPARISON: 02/11/2019 and 05/28/2023 CLINICAL INDICATION: Female, 69 years old with history of C79.51 SECONDARY MALIGNANT NEOPLASM C67.9; history of bladder cancer with generalized joint and bone pain for a year TECHNIQUE: Delayed whole-body scanning was performed following the injection of 25.6 mCi Tc 99m MDP. Images acquired 3.5 hours post injection. FINDINGS: There is degenerative tracer activity at the shoulders and sternoclavicular joints. Scattered degener ative tracer activity mid to lower lumbar spine as well as the mid and lower thoracic spine and cervi andre spine suggested. However, abnormal focus of increased activity proximal left humeral shaft is new from 2018. However, noted to have been present in 2022. Photopenia related to previous bilateral total knee arthroplasties. IMPRESSION: 1. Osseous metastasis involving the proximal left humeral shaft redemonstrated, similar compared to 2 023. 2. Otherwise, activity scattered throughout the spine and at the shoulders likely correspond to degen erative change. No definite new lesion is appreciated by bone scan. [facility], , 12/08/2024 3:35 PM
== END | disposition home or self-care (01) ==
LOC: RADNMMAIN 09:49
PROVIDERS: ATTEND Internal Medicine Hematology & Oncology
DX: C67.9 Malignant neoplasm of bladder, unspecified (principal); C79.51 Secondary malignant neoplasm of bone; D09.0 Carcinoma in situ of bladder; I10 Essential (primary) hypertension; R19.7 Diarrhea, unspecified; M12.9 Arthropathy, unspecified; E11.9 Type 2 diabetes mellitus without complications; Z71.3 Dietary counseling and surveillance
CPT/HCPCS: 78306; A9503

== ENCOUNTER → 2024-12-09 | Outpatient (CLI) | payer MEDICARE, BC ==
--- NOTE | 2024-12-09 15:47 | MR ---
INDICATION: Patient age:Female; 69 years old; Reason for study: C79.31 Secondary malig neoplasm brain; [facility]. COMPARISON: MRI brain 09/04/2024, 06/04/2024, 03/03/2024, CT brain 12/06/2023. TECHNIQUE: Multi planar, multi sequence imaging was performed through the brain. The patient was then given 9.5 cc of Gadobutrol intravenously and multi planar, T1 fat-saturation images were obtained. FINDINGS: The harris-white junctions, ventricular system, basal cisterns appear unremarkable for patient's age. A ge-appropriate cerebral parenchymal volume loss. Diffusion-weighted imaging shows no evidence of rest ricted diffusion to suggest acute/subacute infarct. Increased size of peripheral left frontal parietal cortical junction heterogenous enhancing lesion no w measuring 9 mm, previously measured 3 mm (series 701, image 85). There is increased surrounding vas ogenic edema with increased FLAIR signal. Development of a new left occipital lobe cortical heterogen ous enhancing lesion abutting the falx measuring up to 15 mm (series 701, image 75). There is surroun ding vasogenic edema with increased FLAIR signal. Increasing size of left posterior parietal cortical heterogenous enhancing lesion measuring up to 8 mm, previously 3 mm (series 701, image 133). There i s some surrounding small vasogenic edema with FLAIR signal hyperintensity. Similar small FLAIR signal hyperintensity consistent with vasogenic edema within the posterior right parietal lobe at site of p reviously enhancing enhancing focus. There is decreased enhancement in this region from prior exam. T here is susceptibility artifact identified within these lesions most consistent with hemosiderin depo sition. Intracranial arterial flow voids are maintained. Midline structures show no abnormality. No midline s hift. Patchy areas of high T2/FLAIR signal intensity are seen within the periventricular and subcorti andre white matter. Redemonstration of scattered foci of susceptibility along the harris-white matter malachi ctions throughout the cerebral hemispheres and cerebellum likely related to sites of previous treated metastasis and chronic hemosiderin deposition. The bone marrow signal is within normal limits. The globes are unremarkable. Mild mucosal thickening in the ethmoid sinuses. IMPRESSION: 1. Progression of disease with new 15 mm enhancing lesion within the medial left occipital lobe with 2 additional smaller enlarging lesions within the left parietal and left temporal parietal lobes. The re is surrounding confluent prominent vasogenic edema within the left temporal parietal region and oc cipital region. No midline shift. Positive response to therapy involving the posterior right parietal lesion with decreased enhancement. 2. Other areas of susceptibility and gliosis related to sites of previous treated hemorrhagic metasta sis are similar. 3. Nonspecific white matter changes likely related to small vessel ischemic disease resulting etiolog ies. [facility], , 12/09/2024 3:44 PM
== END | disposition home or self-care (01) ==
LOC: RADMRIMAIN 13:06
PROVIDERS: ATTEND Radiology Radiation Oncology
DX: C79.31 Secondary malignant neoplasm of brain (principal); C77.5 Secondary and unspecified malignant neoplasm of intrapelvic lymph nodes; C67.0 Malignant neoplasm of trigone of bladder; G93.6 Cerebral edema
CPT/HCPCS: 70553; A9585

== ENCOUNTER → 2025-02-10 | Outpatient (CLI) | payer MEDICARE, BC ==
[2025-02-10 10:20] LABS: African American GFR (CKD) >90 (>60 ml/min/1.73 sqM); Blood Urea Nitrogen 13 mg/dL (7-17); Non-African American GFR(CKD) >90 (>60 ml/min/1.73 sqM)
--- NOTE | 2025-02-10 12:37 | CT ---
EXAMINATION TYPE: CT ChestAbdPelvis w con DATE OF EXAM: 02/10/2025 11:24 AM COMPARISON: 11/03/2024 CLINICAL INDICATION: Female, 70 years old with history of C67.9 MALIGNANT NEOPLASM OF BLADDER, UNSPEC IFIED; [facility], Bladder ca, bone metastasis Technique: CT ChestAbdPelvis w con; Multiple axial images were obtained. Two-dimensional coronal and sagittal reconstructions were obtained. Contrast used:100 mL of Isovue 300 with IV Contrast, (None if empty) Oral contrast used: with Oral Contrast CT DLP: 1637 mGycm, Automated exposure control for dose reduction was used. Findings: CHEST: LUNGS/ PLEURA: No evidence for rPleural effusion, pneumothorax, focal consolidation. Stable groundgla ss opacity within the right upper lung measuring up to 1.2 cm (series 3 image 15). No new or enlargin g pulmonary nodules. AIRWAY: Patent and unremarkable.. HEART: Size within normal limits.No pericardial effusion. Mild coronary artery calcifications present . MEDIASTINUM: No gross evidence of adenopathy. VASCULATURE: No aortic aneurysm. Mild atherosclerotic calcification of the aorta and its branches. MUSCULOSKELETAL: No acute osseous abnormalities. Stable anterior T10 vertebral body sclerotic lesion. Right shoulder arthropathy. SOFT TISSUES/LYMPH NODES: Postsurgical changes with removal of right anterior chest wall Mediport cat heter with scarring and a small seroma measuring up to 1.5 cm demonstrated. LOWER NECK: Decreased size of hypodense left thyroid lobe 5 mm nodule. Stable right thyroid lobe subc entimeter 9 mm hypodense nodule. ABDOMEN: LIVER: No evidence for mass. No ductal dilation. GALLBLADDER AND BILE DUCTS: The gallbladder is surgically absent. No biliary duct dilatation. PANCREAS: No evidence for solid mass. No ductal dilation. SPLEEN: . Small splenule present. ADRENAL GLANDS: No nodules of the right gland.. Similar nodular thickening of the left adrenal gland. KIDNEYS AND URETERS: No evidence of hydronephrosis or contrast demonstrated both on both collecting s ystems from prior exam which limits evaluation for the subcentimeter renal calculi. Simple appearing bilateral renal cysts on the right. No follow-up recommended. PELVIS BLADDER: Incompletely distended with lack of contrast limits evaluation. No gross evidence of abnorma lity. REPRODUCTIVE: Uterus with lobulated appearance right uterine calcified fibroid measuring up to 3.9 cm . ABDOMEN & PELVIS STOMACH AND BOWEL: Stomach and duodenum are unremarkable. Few scattered colonic diverticula of the di stal colon. No focal bowel wall thickening or surrounding inflammatory changes. The appendix is withi n normal limits. No evidence of bowel obstruction. PERITONEUM: No evidence of pneumoperitoneum or free fluid. VASCULATURE: Mild to moderate atherosclerotic calcifications are present throughout the abdominal aor ta and its branches. No abdominal aortic aneurysm. Couple of left-sided pelvic phlebolith. MUSCULOSKELETAL: No acute osseous abnormalities. Moderate multilevel degenerative disc disease of the lumbar spine. No new aggressive osseous lesion. LYMPH NODES: 9 mm right presacral lymph node series 3 image 93 is not definitively seen on prior. SOF T TISSUE/ABDOMINAL WALL: Unremarkable IMPRESSION: 1. Indeterminate right presacral lymph node measuring 9 mm not definitively seen on prior finding co uld represent early metastatic disease. 2. No change in groundglass nodular opacity within the right upper lobe. No new or enlarging pulmona ry nodules. 3. Stable sclerotic lesion within the T10 vertebral body. No new suspicious osseous lesions. 4. Stable nodularity of the left adrenal gland. 5. Stable lobular fibroid uterus. [facility], , 02/10/2025 12:35 PM
== END | disposition home or self-care (01) ==
LOC: RADCTMAIN 09:38
PROVIDERS: ATTEND Internal Medicine Hematology & Oncology
DX: C79.51 Secondary malignant neoplasm of bone (principal); C67.9 Malignant neoplasm of bladder, unspecified; D25.9 Leiomyoma of uterus, unspecified; E27.9 Disorder of adrenal gland, unspecified
CPT/HCPCS: 82565; 84520; 71260; 74177; 36415; Q9967